=== PATIENT | female | born 1940 | race Caucasian/White ===

== ENCOUNTER 2019-07-18 21:21 | Emergency (ER) | payer MEDICARE, MEDICAID, SELFPAY ==
[2019-07-18 21:33] VITALS: BP 141/71; PULSE 97; RESP 18; TEMP 37.2; O2SAT 93; BMI 23.0
[2019-07-18 23:31] VITALS: BP 139/70; PULSE 93; RESP 14; O2SAT 91
--- NOTE | 2019-07-18 23:34 | W.ED.GENADLT ---
HPI - General Adult General: Chief complaint: General Medical Stated complaint: flu s/s Time Seen by Provider: 07/18/19 23:33 History of Present Illness: HPI narrative: Patient is a 78-year-old female comes into the ED with productive cough, Fever,nasal congestion and body aches. Patient does have a past medical history lung cancer and is in partial remission. She hasn't received any chemotherapy or radiation treatment since 2018. Patient says symptoms started the night of July 07. They have continued to get worse. Patient says she has some shortness of breath. She currently has an inhaler at home she uses for her shortness of breath. Her cough is productive and she says she is coughing up silva phlegm. Denies any coughing up of blood. Denies any chest pain, abdominal pain, nausea, vomiting, diarrhea, constipation, dysuria, hematuria, blood in the stool, headache, numbness or tingling or weakness to extremities. Review of Systems General: Reports: 10 or more systems reviewed and unremarkable except in HPI and below PFSH ED PFSH: Statuses (acute, chronic, etc) shown below reflect problem list status as previously entered and may not be historically accurate Social History Smoking and tobacco status: current every day smoker Physical Exam Narrative: EXAM NARRATIVE: Patient is a 78-year-old female. Alert and oriented when I entered the room. She had several coughing fits during my history and physical exam. Const: COMMON NORMALS: oriented x3 HENMT: COMMON NORMALS: normocephalic HEAD & SCALP: normocephalic NOSE: nasal discharge MOUTH: oral and palatal mucosa normal THROAT: posterior oropharynx normal and uvula midline Neck/C-Spine: COMMON NORMALS: supple GENERAL: Yes normal visual inspection Resp: COMMON NORMALS: normal respiratory effort, no retractions, no use of accessory muscles and clear to auscultation bilaterally AUSCULTATION: clear to auscultation bilaterally, crackles (mild) Laterality: left and posterior and wheezes (mild) expiratory wheezes (posterior mid to upper right lung) Cardio: COMMON NORMALS: regular rate, regular rhythm, S1 normal heart sound, S2 normal heart sound, no gallops, no clicks and no murmurs RATE: regular rate RHYTHM: regular rhythm HEART SOUNDS: S1 normal and S2 normal PERIPHERAL PULSES: radial pulses present (2+) positive bilateral GI: COMMON NORMALS: normal to inspection, nondistended, normoactive bowel sounds, soft to palpation, non-tender and no masses PALPATION: Yes soft : COMMON NORMALS: Yes no CVA tenderness BLADDER/KIDNEY EXAM: Yes no CVA tenderness Back/Pelvis: COMMON NORMALS: no CVA tenderness Extremity: COMMON NORMALS: normal to inspection; negative for no pedal edema Neuro: COMMON NORMALS: oriented x3 Skin: COMMON NORMALS: no rashes or lesions noted GENERAL SKIN EXAM: no rashes or lesions noted Course Vital Signs: Vital signs: Vital Signs Temperature 99 F 07/18/19 21:33 Pulse Rate 98 07/19/19 02:23 Respiratory Rate 14 07/19/19 02:23 Blood Pressure 102/64 07/19/19 02:23 Pulse Oximetry 92 07/19/19 02:23 MDM - General Adult MDM Narrative: Medical decision making narrative: Patient is a 78-year-old female comes to the ED with productive cough and dyspnea since July 07. Patient's past medical history of lung cancer and COPD. CBC was performed And showed an elevated white blood cell count of 11.1. Influenza was negative. Chest x-ray showed possible lung infiltrate on right lower lobe- Pending official radiology report. Patient was put on a prescription of azithromycin and prednisone to treat pneumonia. CURB-65 score- 1 point for >65y/o, no confusion, BUN under 19, Resp rate 18 Normal, BP 141/71. Outpatient therapy is reccomended. Patient was told to follow-up with primary care doctor in 5-7 days for reevaluation. She was also told to continue taking her current medications including her previously prescribed inhalers. Lab Data: Labs: Lab Results 07/18/19 07/19/19 07/19/19 Range/Units 23:36 00:25 00:25 WBC 11.1 H (4.0-10.0) 10^3/ uL RBC 5.15 (4.1-5.3) 10^6/u L Hgb 13.3 (11.5-15.3) g/dL Hct 41.3 (37.0-47.0) % MCV 80.2 L (81-99) fL MCH 25.8 L (28.0-34.0) pg MCHC 32.2 (30.0-36.0) g/dL RDW 14.8 (12.1-15.1) % Plt Count 324 (130-400) 10^3/c mm MPV 9.7 (7.4-10.4) fL Neut % (Auto) 68.6 % Lymph % (Auto) 17.1 % Jackson % (Auto) 12.1 % Eos % (Auto) 1.3 % Baso % (Auto) 0.4 % Neut # (Auto) 7.6 (1.8-7.7) 10^3/u L Lymph # (Auto) 1.9 (0.8-4.8) 10^3/u L Jackson # (Auto) 1.3 H (0.2-0.9) 10^3/u L Eos # (Auto) 0.2 (0.0-0.8) 10^3/u L Baso # (Auto) 0.0 (0.0-0.1) 10^3/u L Nucleated RBC % (a uto) 0 % Nucleated RBCs # 0.0 /100WBC Sodium 132 L (136-145) mmol/L Potassium 4.1 (3.5-5.1) mmol/L Chloride 98 (98-107) mmol/L Carbon Dioxide 25 (22-29) mmol/L Anion Gap 13.1 (5-19) BUN 15 (8-23) mg/dL Creatinine 0.7 (0.5-0.9) mg/dL Glucose 133 H (74-106) mg/dL Calcium 10.2 (8.8-10.2) mg/Dl Total Bilirubin 0.2 (0.15-1.2) mg/dL AST 10 (0-32) U/L ALT < 5 (0-33) U/L Alkaline Phosphata se 84 (35-105) IU/L Total Protein 7.2 (6.6-8.7) g/dL Albumin 4.0 (3.5-5.2) g/dL Globulin 3.2 (1.3-4.6) g/dL Influenza Type A A g Negative (Negative) POC Influenza B Ag Negative (Negative) Discharge Plan Discharge Patient Disposition: Home, Self-Care Clinical Impression: Pneumonia Qualifiers: Pneumonia type: due to unspecified organism Laterality: right Lung location: lower lobe of lung Qualified Code(s): J18.9 - Pneumonia, unspecified organism Condition: Stable Prescriptions: New azithromycin 250 mg tablet See Rx Instructions .ROUTE .COMPLEX Qty: 6 RF: 0 prednisone 20 mg tablet 20 mg PO BID 5 Days Qty: 10 RF: 0 No Action gabapentin 300 mg capsule 300 mg PO BID RF: 0 omeprazole 40 mg capsule,delayed release(DR/EC) 40 mg PO DAILY RF: 0 Aspirin Low Dose 81 mg Tablet,Delayed Release (Dr/Ec) 81 mg PO DAILY RF: 0 duloxetine 60 mg capsule,delayed release(DR/EC) 60 mg PO DAILY RF: 0 trazodone 50 mg tablet 50 mg PO DAILY RF: 0 pravastatin 40 mg tablet 40 mg PO DAILY RF: 0 alprazolam 0.25 mg tablet RF: 0 oxycodone-acetaminophen 7.5-325 mg tablet RF: 0 Discharge Orders: Discharge Order (Routine); Ordered 07/19/19 Ordered By: Tobias Horner Referrals: Delaney Crowell MD [Family Provider] - Discharge Diet: Regular Discharge Activity: Increase activity as tolerated Activity Restrictions/Additional Instructions: Follow-up with your primary care doctor in 5-7 days for reevaluation. Take full course of antibiotic and steroid as prescribed. Take Tylenol or ibuprofen as needed for fever control. Continue taking at home medications and using breathing treatment. Drink plenty of fluids and stay hydrated. If symptoms worsen or shortness of breath increases return to ED for reevaluation. Discharge Date/Time: 07/19/19 02:30 Coding Level of Care Code [employer] for [facility]
--- NOTE | 2019-07-18 23:35 | XRR_ITS ---
PROCEDURE INFORMATION: Exam: XR Chest, 1 View Exam date and time: 07/18/2019 11:58 PM Age: 78 years old Clinical indication: Cough; Prior surgery; Surgery date: 6+ months; Surgery type: Lung biopsies TECHNIQUE: Imaging protocol: XR of the chest Views: 1 view. COMPARISON: CR Chest 1 [place] [id number] 10/24/2018 8:30 PM FINDINGS: Cardiomediastinal silhouette contour is within normal limits. The lungs are hyperinflated, consistent with emphysema. The lungs are clear bilaterally. No visible pneumothorax or pleural effusion. Pulmonary vasculature within normal limits. XR/XR chest 1V portable [id number] IMPRESSION: 1. No radiographic findings of acute cardiopulmonary disease.
[2019-07-19 00:08] LABS: Influenza A by IFA Negative (Negative); Influenza B by IFA Negative (Negative)
--- NOTE | 2019-07-19 00:10 | PC.NURSE ---
HCP IN ROOM
[2019-07-19 00:39] LABS: Basophils % 0.4 %; Eosinophils # 0.2 10^3/uL (0.0-0.8); Eosinophils % 1.3 %; Hematocrit 41.3 % (37.0-47.0); Hemoglobin 13.3 g/dL (11.5-15.3); Lymphocytes # 1.9 10^3/uL (0.8-4.8); Lymphocytes % 17.1 %; Mean Corpuscular HGB Conc 32.2 g/dL (30.0-36.0); Mean Corpuscular Hemoglobin 25.8 pg (28.0-34.0); Mean Corpuscular Volume 80.2 fL (81-99); Mean Platelet Volume 9.7 fL (7.4-10.4); Monocytes # 1.3 10^3/uL (0.2-0.9); Monocytes % 12.1 %; Neutrophils # 7.6 10^3/uL (1.8-7.7); Neutrophils % 68.6 %; Nucleated Red Blood Cells % 0 %; Platelet Count 324 10^3/cmm (130-400); Red Blood Count 5.15 10^6/uL (4.1-5.3); Red Cell Distribution Width 14.8 % (12.1-15.1); White Blood Count 11.1 10^3/uL (4.0-10.0)
[2019-07-19 00:54] LABS: Alanine Aminotransferase < 5 U/L (0-33); Alkaline Phosphatase 84 IU/L (35-105); Anion Gap 13.1 (5-19); Aspartate Amino Transferase 10 U/L (0-32); Blood Urea Nitrogen 15 mg/dL (8-23); Calcium 10.2 mg/Dl (8.8-10.2); Carbon Dioxide 25 mmol/L (22-29); Chloride 98 mmol/L (98-107); Globulin 3.2 g/dL (1.3-4.6); Glucose 133 mg/dL (74-106); Potassium 4.1 mmol/L (3.5-5.1); Sodium 132 mmol/L (136-145); Total Bilirubin 0.2 mg/dL (0.15-1.2); Total Protein 7.2 g/dL (6.6-8.7)
[2019-07-19 01:07] VITALS: BP 122/57; PULSE 90; RESP 18; O2SAT 95
[2019-07-19 02:23] VITALS: BP 102/64; PULSE 98; RESP 14; O2SAT 92
[2019-07-19] MEDS: azithromycin 250 mg Tablet 500 MG PO (02:29)
== END 2019-07-19 02:30 | disposition home or self-care (01) ==
PROVIDERS: Emergency Medicine; Emergency Provider Physician Assistant; Family Provider Internal Medicine
DX: J18.9 Pneumonia, unspecified organism (principal); F17.210 Nicotine dependence, cigarettes, uncomplicated
CPT/HCPCS: 71045; 80053; 85025; 87804; 99281; 99283; Q0144

== ENCOUNTER 2019-08-02 11:15 | Outpatient (CLI) | payer MEDICARE, MEDICAID, SELFPAY ==
--- NOTE | 2019-08-02 11:21 | CT_ITS ---
WS: [id number] CT CHEST TECHNIQUE: Contrast enhanced CT of the chest with coronal and sagittal reformatted images. CLINICAL INFORMATION: LUNG CA COMPARISON: CT chest 7 and PET/CT [id number] DLP: 443.[address] scans at [facility] use at least one of these dose optimization techniques: automat ed exposure control; mA and/or kV adjustment per patient size (includes targeted exams where dose is matched to clinical indication); or iterative reconstruction. FINDINGS: Again seen is the soft tissue neoplasm medial right upper lobe adjacent to the mediastinum measuring approximately 3.3 x 1.0 CM slightly decreased in size since the 2 most recent examinations. Stable ad jacent satellite nodule measuring 5 mm. No evidence of disease progression. Stable prominent precarin al lymph node measuring 8 mm. No progressed lymphadenopathy. Advanced chronic emphysematous changes. No acute pulmonary infiltrates. No focal pneumonia. Vascular calcification including coronary. Pleural thickening in the lung apices. Small noncalcified nodule in the right lower lobe near the diaphragm measuring 4 mm is unchanged. Aortic calcification. Moderate atheromatous disease thoracic aorta. Adrenal glands are normal. Normal renal parenchymal enhancement. A few small nodules in the thyroid. The largest in the right thyroid measuring 7 mm. These appear unchanged. CT/CT chest w con* [id number] IMPRESSION: 1. No change in the right upper lobe paramedian soft tissue neoplasm slightly decreased in size today measuring 3.3 x 1.0 cm. No evidence of disease progress ion. 2. Stable 8 mm precarinal lymph node. No evidence of progressed lymphadenopath y. 3. Stable satellite nodule in the right upper lobe measuring 5 mm. Stable nonc alcified nodule in the right lower lobe laterally near the diaphragm measuring 5 mm. 4. Advanced emphysematous change
[2019-08-02 12:47] LABS: Basophils % 0.6 %; Eosinophils # 0.2 10^3/uL (0.0-0.8); Eosinophils % 2.7 %; Hematocrit 43.4 % (37.0-47.0); Hemoglobin 13.7 g/dL (11.5-15.3); Lymphocytes # 1.3 10^3/uL (0.8-4.8); Lymphocytes % 18.2 %; Mean Corpuscular HGB Conc 31.6 g/dL (30.0-36.0); Mean Corpuscular Hemoglobin 26.6 pg (28.0-34.0); Mean Corpuscular Volume 84.3 fL (81-99); Mean Platelet Volume 9.2 fL (7.4-10.4); Monocytes # 0.7 10^3/uL (0.2-0.9); Neutrophils # 4.8 10^3/uL (1.8-7.7); Neutrophils % 68.2 %; Nucleated Red Blood Cells % 0 %; Platelet Count 477 10^3/cmm (130-400); Red Blood Count 5.15 10^6/uL (4.1-5.3); Red Cell Distribution Width 14.6 % (12.1-15.1); White Blood Count 7.1 10^3/uL (4.0-10.0)
[2019-08-02] MEDS: iohexol 300 mg/mL 100 mL Btl IV (12:54)
[2019-08-02 13:01] LABS: Alanine Aminotransferase 8 U/L (0-33); Albumin Level 3.5 g/dL (3.5-5.2); Alkaline Phosphatase 79 IU/L (35-105); Anion Gap 15.6 (5-19); Aspartate Amino Transferase 12 U/L (0-32); Blood Urea Nitrogen 11 mg/dL (8-23); Calcium 10.4 mg/Dl (8.8-10.2); Carbon Dioxide 27 mmol/L (22-29); Chloride 99 mmol/L (98-107); Globulin 4.2 g/dL (1.3-4.6); Glucose 98 mg/dL (74-106); Potassium 4.6 mmol/L (3.5-5.1); Sodium 137 mmol/L (136-145); Total Bilirubin 0.2 mg/dL (0.15-1.2); Total Protein 7.7 g/dL (6.6-8.7)
== END 2019-08-02 11:16 | disposition home or self-care (01) ==
LOC: RAD 11:18
PROVIDERS: Family Provider Internal Medicine; Visit Provider Internal Medicine Medical Oncology
DX: C34.11 Malignant neoplasm of upper lobe, right bronchus or lung (principal); J43.9 Emphysema, unspecified
CPT/HCPCS: 36415; 71260; 80053; 85025

== ENCOUNTER 2019-08-05 12:03 | Outpatient (CLI) | payer MEDICARE, MEDICAID, SELFPAY ==
--- NOTE | 2019-08-07 14:52 | ONC FU_ITS ---
Dr. Iqbal Patient Follow-Up Note Patient: Giovanna Gottlieb Unit #: [id number]: 1940 Dicatated By: Giacomo Iqbal M.D.Date of Visit:Aug 05, 2019 Onc Med Follow-up/Prog Note Chief Complaint: Lung cancer. 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 By clinical evaluation her disease appeared to be stage IIB (T3, N0, M0). On 07/10/2017 she was admitted to the hospital with an acute COPD exacerbation in association with influenza A infection. Her chest CT at that time showed a mixed soft tissue attenuation mass in the right upper lobe extending anteriorly and superiorly to contact the superior mediastinum and anterior parietal pleura. The mass measured 7.6 x 3.2 x 6.1 cm. The pulmonary vasculature appeared attenuated within the mass and the bronchi appeared occluded. There was mildly prominent mediastinal and right hilar lymphadenopathy. A 7 mm pulmonary nodule was noted in the right anterior upper lobe. Reticular opacities in the right upper lobe were felt to possibly represent a superimposing infiltrate. She was discharged the following day. Further evaluation with PET/CT on 08/02/2017 showed a 4 cm of thickened lower sigmoid colon with SUV 9.4, consistent with malignancy. There were no sites of pathologic adenopathy or other metastatic disease below the diaphragm. The right upper lobe lung mass measured 4 x 3 cm with SUV 19.4, also consistent with malignancy. There was associated subtotal obstruction of the bronchus to the anterior segment right upper lobe with postobstructive pneumonitis. Also noted was a 1.7 cm pulmonary nodule in the base of the anterior segment right upper lobe with SUV 8.0. Increased FDG uptake throughout the bone marrow was felt to be nonspecific. It appeared accentuated in T11 and L2, suspicious for metastatic disease. Colonoscopy on 08/04/2017 showed multiple polyps including a 1 cm sessile polyp and 2 polyps measuring 5 mm in the cecum, a 5 mm sessile polyp in the ascending colon, 1 cm pedunculated polyp in 2 separate pedunculated polyps measuring 7 mm in the sigmoid colon, and a 7 mm pedunculated polyp within the rectum at 10 cm. All of these were removed endoscopically. Also noted was a large pedunculated polyp in the rectosigmoid area at about 20 cm. It measured 3-4 cm. The stalk could not be identified. It apparently was not removed. Biopsy, though, showed tubulovillous adenoma with low-grade dysplasia. It was reported to be completely excised, though I had assumed that to be inaccurate. The rectal polyp and one of the polyps in the cecum also showed tubulovillous adenoma. Another polyp within the cecum was hyperplastic and the polyp in the ascending colon was noted to be adenomatous. A smaller sigmoid polyp also was adenomatous. On 08/20/2017 she underwent bronchoscopy followed by mediastinoscopy with biopsies lymph nodes from station 4R and from the cervical pretracheal region. The bronchoscopy showed an endobronchial exophytic lesion at the orifice to the right upper lobe bronchus. Biopsy showed non-small cell carcinoma consistent with poorly differentiated squamous cell carcinoma. The lymph node biopsies were benign. On 09/08/2017 she began treatment with radiation concurrently with weekly carboplatin/chemotherapy. Her radiation was completed on 10/24/2017 to a total dose of 6300 cGy. She had received her 6th weekly infusion of carboplatin on 10/16/2017. She had significant fatigue during her treatment, but she otherwise tolerated it pretty well. Restaging CT scans of the chest, abdomen, and pelvis on 12/04/2017 showed interval decrease in the right upper lobe mass measuring 5.4 x 1.8 x 2.5 cm compared to 7.6 x 3.4 x 3.57 cm on the pretreatment study. There was also interval decreased mediastinal lymphadenopathy. A right lower lobe lateral costophrenic angle subpleural nodule appeared stable measuring 4-5 mm. On 12/24/2017 show underwent laparoscopic sigmoid colectomy with stapled EEA anastomosis. Grossly there was no evidence of metastatic involvement in the liver or peritoneal carcinomatosis. Pathology showed moderately differentiated adenocarcinoma arising within a villoglandular polyp. Tumor was noted to invade into the muscularis propria, but it was confined to the muscularis. It measured 3.5 x 2.5 x 2.5 cm. There was no involvement in 3 regional lymph nodes. Repeat chest CT on 03/06/2018 showed right upper lobe anterior medial soft tissue mass measuring 4.3 x 1.3 cm with slight further improvement compared to the study in November. Prominent precarinal, right hilar, and subcarinal lymph nodes appeared stable. Noncalcified subcentimeter nodules in the right upper lobe and at the right lung base appeared stable. Also noted were treatment related changes in the right upper lobe and right hilum. She had further evaluation with PET/CT on 03/28/2018. It showed decreased FDG uptake within the right upper lobe mass, consistent with response to therapy. A superior right hilar lymph node also showed decreased FDG uptake, SUV 6.7 compared to 21.8 on the pretreatment study. Small mediastinal nodes in the prevascular, precarinal, and subcarinal territories were FDG positive and unchanged from the prior study. She was referred to Dr. Easton for consideration of surgical resection. He felt that she would not be an appropriate candidate for surgery due to the suspected lymph node involvement and the need for a total pneumonectomy. Her other medical illnesses include hypertension, hyperlipidemia, GERD, fibromyalgia, and COPD. She has additional history of cervical spondylosis with myelopathy. I had previously seen her in July 2015 in regard to leukocytosis, which appeared to be reactive. Her prior surgeries limited to NAE/BSO in 1978 and carpal tunnel release bilaterally in 1992. She has a history of smoking 1 pack of cigarettes daily in excess of 50 years. INTERIM HISTORY: I had seen her for a follow-up visit on 05/27/2018. At that point she was reporting significant pain in her back which had started just after her previous visit in February. X-ray of the thoracic spine was unremarkable. CT of the thoracic spine showed stable previous minor anterior superior compression fractures at T1, T2, T3, and T4. There was mild posterior disc bulging or shallow protrusion at the T8-T9, also without change. There was no evidence of a neoplastic process of the thoracic spine. Chest CT showed stable residual neoplastic mass lesion in the anterior segment right upper lobe and stable right upper and lower lobe pulmonary parenchymal nodules. Nonenlarged mediastinal lymph nodes also appeared stable. Further evaluation with bone scan on 06/15/2018 also showed no evidence of osseous metastatic disease. Given those findings, she continued on observation/expectant management. A restaging PET/CT on 10/03/2018 showed medial right upper lobe consolidation which was FDG positive and felt to be consistent with recurrent disease. Multiple mediastinal lymph nodes were also felt to have significantly progressed, indicative of active metastatic disease. There were additional areas of lymph node progression noted in the left hilum and in the prevascular and inferior right hilar territories. In October she had been seen in the emergency room with suspected TIA. Contrast-enhanced head CT at that time showed no acute intracranial abnormality. Repeat chest CT on 01/15/2019 showed slight increase in the with of the medial right upper lobe neoplasm, measuring 3.5 x 1.7 cm. There was slight increase in soft tissue thickening. An additional 6 mm nodule appeared stable and a right lower lobe 4 mm nodule appeared stable. There was slight increase in the size of lymph nodes in the precarinal area and at the hilum, but they were still subcentimeter. There were no other findings of disease progression. Her restaging PET/CT on 04/17/2019 showed mild activity in the medial right upper lobe consolidation, unchanged from prior studies. There was also no significant change in FDG positive lymph nodes, including a superior right hilar node with SUV 8.1 compared to 9.9 and a precarinal node with SUV 5.7 compared to 6.2. Multiple other nodes also demonstrated no significant change. There were no new areas of abnormal uptake. She continued on observation/expectant management. Her chest CT on 08/02/2019 showed soft tissue neoplasm in the medial right upper lobe adjacent to the mediastinum measuring approximately 3.3 x 1.0 cm, slightly decreased in size compared to the 2 most recent studies. An adjacent satellite lymph node measuring 5 mm also appeared stable, and a prominent precarinal lymph node measuring 8 mm appeared stable. There was no progressed lymphadenopathy or other evidence of disease progression. Advanced emphysematous changes were noted. She is seen for a follow-up visit. She was seen in the emergency room on 17 July and diagnosed with pneumonia. She was treated as an outpatient with antibiotic and prednisone, and she got better. Her energy, though, is just so-so. She is able to do light work. ECOG score is 1. Her appetite is variable, but adequate. She has not had fever. She occasionally has sweating in the evening. She is short of breath with activity. She still has cough productive of silva sputum. About 3 weeks ago she had an episode in which of felt like there was an elephant on her chest, and she also could not breathe. She opted not to seek any medical attention, and the episode resolved. She currently has no GI or complaints. She has some back pain at times, and she says her knees are really weak. She has not been having headache. She has some orthostatic lightheadedness. She has fallen twice within the last 1 to 2 months. She has no focal neurologic symptoms. Medications: Advair Diskus 1 Aerosol Powder, Breath Activated Inhalation b.i.d., ALPRAZolam 1 (0.25 mg) Tablet Oral PRN, Aspirin 1 (81 mg) Tablet Oral daily, Cetirizine HCl 1 Tablet (of 10 mg) Oral ac am, DULoxetine HCl 1 (60 mg) Capsule Delayed Release Particles Oral daily, Gabapentin 1 (300 mg) Capsule Oral b.i.d., Incruse Ellipta 1 (62.5 mcg/inh) Aerosol Powder, Breath Activated Inhalation daily, Ocuvite Adult Formula 1 Capsule Oral daily, Omeprazole 1 Capsule (of 20 mg) Capsule Delayed Release Oral daily, Percocet 1 Tablet (of 7.5-325 mg) Oral PRN, Pravastatin Sodium 1 (40 mg) Tablet Oral daily, Singulair 1 Tablet (of 10 mg) Oral at bedtime, traZODone HCl 1 Tablet (of 50 mg) Oral at bedtime Allergies: Codeine Sulfate, Penicillins, Sulfa Antibiotics, and Vicodin. Review of Systems: Constitutional - She went to ER for pneumonia earlier this month. She was given antibiotics and steroids. She is feeling much better. Her energy is fair. She does light work at home. Her appetite is good and her weight is stable. No fever or chills. She does have hot flashes and sweating. ECOG score is 1, ENMT - No sinus congestion/drainage. No mouth sores. No sore throat or difficulty swallowing, Hematologic/Lymphatic - She bruises easily, Respiratory - She has shortness of breath with activity. She has a cough that produces silva phlegm. No pleuritic pain or hemoptysis, Cardiovascular - She has had chest pressure. No palpitations, Gastrointestinal - No nausea or vomiting. No heartburn or acid reflux. No diarrhea or constipation. No blood in the stool or black stools, Genitourinary (F) - No dysuria or hematuria. No urinary frequency. No urgency or incontinence, Musculoskeletal - She has pain and weakness in both knees. She occasionally has pain in her back, Integumentary - No skin complications, Neurologic - No headache. She occasionally feels dizzy and light-headed. She has had a few falls. No numbness/paresthesias or other focal neurologic symptoms, Psychiatric - No anxiety or depression. No insomnia. Vital Signs: Performed on Aug 05, 2019 12:52 Height - 63.00 in Weight - 132.0 lbs BSA - 1.62 sq.m BMI - 23.38 Temperature - 97.8 F (LOW) Pulse - 88 /min Respiration - 22 /min BP - 124/76 mm(hg) O2 Sat - 94 % (LOW) Pain - 0 Physical Examination: Constitutional - She looks pretty good generally, Eyes - Sclerae nonicteric. Conjunctivae clear, ENMT - No lesions noted in the oral cavity, Hematologic/Lymphatic - No cervical, clavicular, or axillary adenopathy, Respiratory - Lungs sound clear with diminished air movement bilaterally, Cardiovascular - Heart rhythm is regular. There is no murmur, gallop, or rub noted, Abdomen - Soft. Liver and spleen are not enlarged. There is no abdominal mass or ascites noted and there is no inguinal adenopathy, Extremities - No edema. There are purpuric lesions on both arms, Neurologic - No focal neurologic deficits noted. Lab/Imaging: Test performed on Aug 02, 2019 12:12 Glucose 98 mg/dL BUN 11 mg/dL Creatinine 0.7 mg/dL Cr Clearance (Est) 64.63 mL/min Sodium 137 mmol/L Potassium 4.6 mmol/L Chloride 99 mmol/L CO2 27 mmol/L Calcium 10.4 mg/dL Protein, Total 7.7 g/dL Albumin 3.5 g/dL Globulin 4.2 g/dL Bilirubin, Total 0.2 mg/dL Alkaline Phosphatase 79 IU/L AST (SGOT) 12 IU/L ALT (SGPT) 8 IU/L WBC 7.1 10^9/L RBC 5.15 10^12/L HGB 13.7 g/dL HCT 43.4 % MCV 84.3 fl MCH 26.6 pg MCHC 31.6 g/dL RDW 14.6 % Platelet Count 477 10^9/L MPV 9.2 fL Neutrophils (Gran) 4.8 10^9/L Lymphocytes 1.3 10^9/L Monocytes 0.7 10^9/L Eosinophils 0.2 10^9/L Manual Lymphocytes 18.2 % Manual Monocytes 10.0 % Manual Eosinophils 2.7 % Manual Basophils 0.6 % NRBCs 0.0 /100 WBC Impression: 1. 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 By clinical evaluation her disease appeared to be stage IIB (T3, N0, M0), as her PET/CT was suspicious for a separate tumor nodule within the same lobe. 2. She was noted to have a large polyp within the sigmoid colon. This may just be tubulovillous adenoma based on the biopsy, but invasive carcinoma cannot be excluded. Her other medical illnesses include: 3. COPD. 4. Hypertension. 5. Hyperlipidemia. 6. GERD. 7. Fibromyalgia. 8. Nicotine dependence (cigarettes). On 09/08/2017 she began radiation concurrently with weekly carboplatin/Taxol chemotherapy. She completed radiation on 10/24/2017 to a total dose of 6300 cGy. She was given a total of 6 weekly infusions of carboplatin/Taxol. She had significant fatigue during the treatment, but she otherwise tolerated it pretty well. Her restaging CT scans on 12/04/2017 showed a decrease in the right upper lobe lung mass, but there was still significant residual mass in that area. On 12/24/2017 she underwent laparoscopic sigmoid colectomy. Pathology showed moderately differentiated adenocarcinoma, stage I (T2, N0, M0). There was no indication for any further treatment. Her repeat chest CT on 03/06/2018 showed residual right upper lobe mass measuring 4.3 x 1.3 cm, slightly improved from the previous study. Prominent precarinal, right hilar, and subcarinal lymph nodes appeared stable. Repeat PET/CT on 03/28/2018 showed decreased FDG activity within the right upper lobe mass, consistent with response to therapy. A right hilar lymph node also showed decrease FDG uptake. The SUV had decreased to 6.7 compared to 21.8 on the pretreatment study, though it was not included in that report. In retrospect, it does appear that she was incorrectly staged, and she was more likely stage IIIA to begin with (T3, N1, M0). It would not, however, have changed her management. In May 2018 she had presented with increasing pain in the mid back. The symptoms were suspicious for metastatic involvement, but there was no evidence for metastatic involvement in the bone by CT or bone scan. She declined to have an MRI. Her chest CT that time showed no progression of the lung cancer. During subsequent follow-up there was improvement in her back pain, but she continued to have fairly marginal performance status. Her restaging PET/CT on 10/03/2018 showed findings which were felt to be consistent with disease recurrence in the medial right upper lobe as well as progression of malignant mediastinal adenopathy. The findings, though, were rather subtle. As she appeared stable clinically, I opted to have her continue on observation/expectant management. Her repeat chest CT in January 2019 showed findings which were felt to be suspicious for disease progression in the right upper lobe, but her restaging PET/CT on 04/17/2019 showed stable findings with no evidence of disease progression. Since then she is continued to have somewhat marginal performance status. She was given outpatient treatment for pneumonia earlier this month, but she seems to have adequate recovery. Overall, her clinical status at this point appears stable, and her current CT scan shows no evidence of disease progression. Plan: She remains on observation/expectant management or the lung cancer. Her medications will remain the same. She will be scheduled for a follow-up visit with a repeat CT scan in 3 months. Signed By: Giacomo Iqbal M.D. <<Signature on File>>
== END 2019-08-05 12:04 | disposition home or self-care (01) ==
LOC: ONCMED 12:07
PROVIDERS: Family Provider Internal Medicine; PCP Internal Medicine; Visit Provider Internal Medicine Medical Oncology
DX: C34.11 Malignant neoplasm of upper lobe, right bronchus or lung (principal); I10 Essential (primary) hypertension; E78.5 Hyperlipidemia, unspecified; K21.9 Gastro-esophageal reflux disease without esophagitis; M79.7 Fibromyalgia; J44.9 Chronic obstructive pulmonary disease, unspecified; M47.12 Other spondylosis with myelopathy, cervical region; F17.210 Nicotine dependence, cigarettes, uncomplicated; Z79.82 Long term (current) use of aspirin; Z79.51 Long term (current) use of inhaled steroids; Z79.899 Other long term (current) drug therapy; Z85.038 Personal history of other malignant neoplasm of large intestine; Z92.3 Personal history of irradiation; Z90.49 Acquired absence of other specified parts of digestive tract; Z92.21 Personal history of antineoplastic chemotherapy; Z87.01 Personal history of pneumonia (recurrent)
CPT/HCPCS: G0463

== ENCOUNTER 2019-11-09 08:01 | Outpatient (CLI) | payer MEDICARE, MEDICAID, SELFPAY ==
--- NOTE | 2019-11-09 08:06 | CT_ITS ---
WS: [id number] CT CHEST TECHNIQUE: Contrast enhanced CT of the chest with coronal and sagittal reformatted images. CLINICAL INFORMATION: LUNG CA COMPARISON: CT chest August 02, 2019 CT 7 , June 03, 2018. Prior PET CTs including 9 and 10/03/2018 March 28, 2018 DLP: 661.[address] scans at [facility] use at least one of these dose optimization techniques: automat ed exposure control; mA and/or kV adjustment per patient size (includes targeted exams where dose is matched to clinical indication); or iterative reconstruction. FINDINGS: Again seen is the soft tissue neoplasm medial right upper lobe adjacent to the mediastinum measuring approximately 3.4 x 1.0 CM unchanged since the prior examinations. Stable adjacent satellite nodule m easuring 5 mm. Stable prominent precarinal lymph node measuring 8 mm. Small noncalcified nodule in th e right lower lobe near the diaphragm measuring 4 mm is unchanged. New noncalcified nodule in the rig ht upper lobe measuring 5.5 mm. Additionally nodules right middle lobe measuring 4.7, 4.8 mm. Hazy gr oundglass nodule right lower lobe more prominent and better seen seen today measuring 3.8 mm. No axillary lymphadenopathy. No progressed mediastinal or hilar lymphadenopathy. Advanced chronic emphysematous changes. No acute pulmonary infiltrates. No focal pneumonia. Vascular calcification including coronary. Pleural thickening in the lung apices. Aortic calcification. Moderate atheromatous disease thoracic aorta. Adrenal glands are normal. Normal renal parenchymal enhancement. A few small nodules in the thyroid. These appear unchanged. CT/CT chest w con* [id number] IMPRESSION: 1. No change in the right upper lobe paramedian soft tissue neoplasm unchanged in size today measuring 3.4 x 1.0 cm. 2. Stable 8 mm precarinal lymph node. No evidence of progressed lymphadenopathy . 3. Stable satellite nodule in the right upper lobe measuring 5 mm. Stable nonca lcified nodule in the right lower lobe laterally near the diaphragm measuring 5 mm. 4. Several new noncalcified nodules in the right upper lobe posteriorly measuri ng 5.5 mm and right middle lobe measuring 4.7 and 4.8 mm. Additional hazy groundglass nodule in the right lower lung posteriorly measurin g 3.8 mm more prominent that are seen today. Recommend 3 month follow-up for th yehuda nodules. 5. No other significant changes.
[2019-11-09 08:39] LABS: Blood Urea Nitrogen 8 mg/dL (8-23)
[2019-11-09] MEDS: iohexol 300 mg/mL 100 mL Btl IV (08:50)
== END 2019-11-09 08:02 | disposition home or self-care (01) ==
PROVIDERS: Family Provider Internal Medicine; PCP Internal Medicine; Visit Provider Internal Medicine Medical Oncology
DX: C34.11 Malignant neoplasm of upper lobe, right bronchus or lung (principal); R91.1 Solitary pulmonary nodule
CPT/HCPCS: 71260; 82565; 84520; Q9967

== ENCOUNTER 2019-11-18 12:15 | Outpatient (CLI) | payer MEDICARE, MEDICAID, SELFPAY ==
[2019-11-18 16:35] LABS: Basophils # 0.1 10^3/uL (0.0-0.1); Basophils % 0.8 %; Eosinophils # 0.3 10^3/uL (0.0-0.8); Eosinophils % 3.5 %; Hemoglobin 15.3 g/dL (11.5-15.3); Lymphocytes # 2.1 10^3/uL (0.8-4.8); Lymphocytes % 26.4 %; Mean Corpuscular HGB Conc 30.6 g/dL (30.0-36.0); Mean Corpuscular Hemoglobin 26.2 pg (28.0-34.0); Mean Corpuscular Volume 85.8 fL (81-99); Mean Platelet Volume 9.8 fL (7.4-10.4); Monocytes # 0.9 10^3/uL (0.2-0.9); Monocytes % 10.8 %; Neutrophils # 4.6 10^3/uL (1.8-7.7); Neutrophils % 58.2 %; Nucleated Red Blood Cells % 0 %; Platelet Count 335 10^3/cmm (130-400); Red Blood Count 5.83 10^6/uL (4.1-5.3); Red Cell Distribution Width 15.6 % (12.1-15.1)
[2019-11-18 16:41] LABS: Alanine Aminotransferase 9 U/L (0-33); Albumin Level 3.9 g/dL (3.5-5.2); Alkaline Phosphatase 75 IU/L (35-105); Anion Gap 15.8 (5-19); Aspartate Amino Transferase 15 U/L (0-32); Blood Urea Nitrogen 10 mg/dL (8-23); Calcium 10.4 mg/dL (8.5-10.5); Carbon Dioxide 29 mmol/L (22-29); Chloride 102 mmol/L (98-107); Globulin 3.9 g/dL (1.3-4.6); Glucose 77 mg/dL (65-115); Osmolality Calculated 291 mOsm/kg (285-295); Potassium 3.8 mmol/L (3.5-5.1); Sodium 143 mmol/L (136-145); Total Bilirubin 0.2 mg/dL (0.15-1.2); Total Protein 7.8 g/dL (6.6-8.7)
== END 2019-11-18 12:16 | disposition home or self-care (01) ==
LOC: ONCMED 16:27
PROVIDERS: PCP Internal Medicine; Visit Provider Internal Medicine Medical Oncology
DX: C34.11 Malignant neoplasm of upper lobe, right bronchus or lung (principal); C18.7 Malignant neoplasm of sigmoid colon
CPT/HCPCS: 36415; 80053; 85025

== ENCOUNTER 2019-11-19 10:25 | Outpatient (CLI) | payer MEDICARE, MEDICAID, SELFPAY ==
--- NOTE | 2019-11-20 18:14 | ONC FU_ITS ---
Dr. Iqbal Patient Follow-Up Note Patient: Giovanna Gottlieb Unit #: [id number]: [id number] Dicatated By: Giacomo Iqbal M.D.Date of Visit:November 19, 2019 Onc Med Follow-up/Prog Note Chief Complaint: Lung cancer. 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 By clinical evaluation her disease appeared to be stage IIB (T3, N0, M0). On 07/10/2017 she was admitted to the hospital with an acute COPD exacerbation in association with influenza A infection. Her chest CT at that time showed a mixed soft tissue attenuation mass in the right upper lobe extending anteriorly and superiorly to contact the superior mediastinum and anterior parietal pleura. The mass measured 7.6 x 3.2 x 6.1 cm. The pulmonary vasculature appeared attenuated within the mass and the bronchi appeared occluded. There was mildly prominent mediastinal and right hilar lymphadenopathy. A 7 mm pulmonary nodule was noted in the right anterior upper lobe. Reticular opacities in the right upper lobe were felt to possibly represent a superimposing infiltrate. She was discharged the following day. Further evaluation with PET/CT on 08/02/2017 showed a 4 cm of thickened lower sigmoid colon with SUV 9.4, consistent with malignancy. There were no sites of pathologic adenopathy or other metastatic disease below the diaphragm. The right upper lobe lung mass measured 4 x 3 cm with SUV 19.4, also consistent with malignancy. There was associated subtotal obstruction of the bronchus to the anterior segment right upper lobe with postobstructive pneumonitis. Also noted was a 1.7 cm pulmonary nodule in the base of the anterior segment right upper lobe with SUV 8.0. Increased FDG uptake throughout the bone marrow was felt to be nonspecific. It appeared accentuated in T11 and L2, suspicious for metastatic disease. Colonoscopy on 08/04/2017 showed multiple polyps including a 1 cm sessile polyp and 2 polyps measuring 5 mm in the cecum, a 5 mm sessile polyp in the ascending colon, 1 cm pedunculated polyp in 2 separate pedunculated polyps measuring 7 mm in the sigmoid colon, and a 7 mm pedunculated polyp within the rectum at 10 cm. All of these were removed endoscopically. Also noted was a large pedunculated polyp in the rectosigmoid area at about 20 cm. It measured 3-4 cm. The stalk could not be identified. It apparently was not removed. Biopsy, though, showed tubulovillous adenoma with low-grade dysplasia. It was reported to be completely excised, though I had assumed that to be inaccurate. The rectal polyp and one of the polyps in the cecum also showed tubulovillous adenoma. Another polyp within the cecum was hyperplastic and the polyp in the ascending colon was noted to be adenomatous. A smaller sigmoid polyp also was adenomatous. On 08/20/2017 she underwent bronchoscopy followed by mediastinoscopy with biopsies lymph nodes from station 4R and from the cervical pretracheal region. The bronchoscopy showed an endobronchial exophytic lesion at the orifice to the right upper lobe bronchus. Biopsy showed non-small cell carcinoma consistent with poorly differentiated squamous cell carcinoma. The lymph node biopsies were benign. On 09/08/2017 she began treatment with radiation concurrently with weekly carboplatin/chemotherapy. Her radiation was completed on 10/24/2017 to a total dose of 6300 cGy. She had received her 6th weekly infusion of carboplatin on 10/16/2017. She had significant fatigue during her treatment, but she otherwise tolerated it pretty well. Restaging CT scans of the chest, abdomen, and pelvis on 12/04/2017 showed interval decrease in the right upper lobe mass measuring 5.4 x 1.8 x 2.5 cm compared to 7.6 x 3.4 x 3.57 cm on the pretreatment study. There was also interval decreased mediastinal lymphadenopathy. A right lower lobe lateral costophrenic angle subpleural nodule appeared stable measuring 4-5 mm. On 12/24/2017 show underwent laparoscopic sigmoid colectomy with stapled EEA anastomosis. Grossly there was no evidence of metastatic involvement in the liver or peritoneal carcinomatosis. Pathology showed moderately differentiated adenocarcinoma arising within a villoglandular polyp. Tumor was noted to invade into the muscularis propria, but it was confined to the muscularis. It measured 3.5 x 2.5 x 2.5 cm. There was no involvement in 3 regional lymph nodes. Repeat chest CT on 03/06/2018 showed right upper lobe anterior medial soft tissue mass measuring 4.3 x 1.3 cm with slight further improvement compared to the study in November. Prominent precarinal, right hilar, and subcarinal lymph nodes appeared stable. Noncalcified subcentimeter nodules in the right upper lobe and at the right lung base appeared stable. Also noted were treatment related changes in the right upper lobe and right hilum. She had further evaluation with PET/CT on 03/28/2018. It showed decreased FDG uptake within the right upper lobe mass, consistent with response to therapy. A superior right hilar lymph node also showed decreased FDG uptake, SUV 6.7 compared to 21.8 on the pretreatment study. Small mediastinal nodes in the prevascular, precarinal, and subcarinal territories were FDG positive and unchanged from the prior study. She was referred to Dr. Easton for consideration of surgical resection. He felt that she would not be an appropriate candidate for surgery due to the suspected lymph node involvement and the need for a total pneumonectomy. Her other medical illnesses include hypertension, hyperlipidemia, GERD, fibromyalgia, and COPD. She has additional history of cervical spondylosis with myelopathy. I had previously seen her in July 2015 in regard to leukocytosis, which appeared to be reactive. Her prior surgeries limited to NAE/BSO in 1978 and carpal tunnel release bilaterally in 1992. She has a history of smoking 1 pack of cigarettes daily in excess of 50 years. INTERIM HISTORY: I had seen her for a follow-up visit on 05/27/2018. At that point she was reporting significant pain in her back which had started just after her previous visit in February. X-ray of the thoracic spine was unremarkable. CT of the thoracic spine showed stable previous minor anterior superior compression fractures at T1, T2, T3, and T4. There was mild posterior disc bulging or shallow protrusion at the T8-T9, also without change. There was no evidence of a neoplastic process of the thoracic spine. Chest CT showed stable residual neoplastic mass lesion in the anterior segment right upper lobe and stable right upper and lower lobe pulmonary parenchymal nodules. Nonenlarged mediastinal lymph nodes also appeared stable. Further evaluation with bone scan on 06/15/2018 also showed no evidence of osseous metastatic disease. Given those findings, she continued on observation/expectant management. A restaging PET/CT on 10/03/2018 showed medial right upper lobe consolidation which was FDG positive and felt to be consistent with recurrent disease. Multiple mediastinal lymph nodes were also felt to have significantly progressed, indicative of active metastatic disease. There were additional areas of lymph node progression noted in the left hilum and in the prevascular and inferior right hilar territories. In October she had been seen in the emergency room with suspected TIA. Contrast-enhanced head CT at that time showed no acute intracranial abnormality. Repeat chest CT on 01/15/2019 showed slight increase in the with of the medial right upper lobe neoplasm, measuring 3.5 x 1.7 cm. There was slight increase in soft tissue thickening. An additional 6 mm nodule appeared stable and a right lower lobe 4 mm nodule appeared stable. There was slight increase in the size of lymph nodes in the precarinal area and at the hilum, but they were still subcentimeter. There were no other findings of disease progression. Her restaging PET/CT on 04/17/2019 showed mild activity in the medial right upper lobe consolidation, unchanged from prior studies. There was also no significant change in FDG positive lymph nodes, including a superior right hilar node with SUV 8.1 compared to 9.9 and a precarinal node with SUV 5.7 compared to 6.2. Multiple other nodes also demonstrated no significant change. There were no new areas of abnormal uptake. She continued on observation/expectant management. Her chest CT on 08/02/2019 showed soft tissue neoplasm in the medial right upper lobe adjacent to the mediastinum measuring approximately 3.3 x 1.0 cm, slightly decreased in size compared to the 2 most recent studies. An adjacent satellite lymph node measuring 5 mm also appeared stable, and a prominent precarinal lymph node measuring 8 mm appeared stable. There was no progressed lymphadenopathy or other evidence of disease progression. Advanced emphysematous changes were noted. She was seen in the emergency room on 17 July and diagnosed with pneumonia. She was treated as an outpatient with antibiotic and prednisone, and she got better. However, during subsequent follow-up, she continued to have limited activity tolerance and marginal performance status. Her restaging chest CT on 11/09/2019 showed unchanged soft tissue neoplasm in the medial right upper lobe adjacent to the mediastinum measuring approximately 3.4 x 1.0 cm. An adjacent satellite nodule measuring 5 mm also appeared stable, as did a prominent precarinal lymph node measuring 8 mm. A small noncalcified nodule in the right lower lobe near the diaphragm measuring 4 mm appeared unchanged. A noncalcified nodule in the right upper lobe measuring 5.5 mm appeared to be new. Additional new nodules were noted in the right middle lobe measuring 4.7 and 4.8 mm. A hazy groundglass nodule in the right lower lobe appeared slightly more prominent measuring 3.8 mm. She is seen for a scheduled visit. She says her energy is low, but she is still doing some light work. ECOG score is 1. Her appetite is poor, but her weight is stable. She does not have fever or night sweats. Her main complaint is that she is getting dizzy when she first stands up. Her description is most typical with disequilibrium. She says she tends to walk crooked and she loses her balance a lot. She is having a lot of pain in her neck and in her shoulder muscles. She has a sore spot in her right shoulder area. She complains that her nose runs constantly. She has shortness of breath. She has cough productive of silva sputum. She does not complain of chest pain. She has no GI or complaints. She reports having pain in her right knee. She does not complain of headache, and she has no focal neurologic symptoms. Medications: Advair Diskus 1 Aerosol Powder, Breath Activated Inhalation b.i.d., ALPRAZolam 1 (0.25 mg) Tablet Oral PRN, Aspirin 1 (81 mg) Tablet Oral daily, Cetirizine HCl 1 Tablet (of 10 mg) Oral ac am, DULoxetine HCl 1 (60 mg) Capsule Delayed Release Particles Oral daily, Gabapentin 1 (300 mg) Capsule Oral b.i.d., Incruse Ellipta 1 (62.5 mcg/inh) Aerosol Powder, Breath Activated Inhalation daily, Ocuvite Adult Formula 1 Capsule Oral daily, Omeprazole 1 Capsule (of 20 mg) Capsule Delayed Release Oral daily, Percocet 1 Tablet (of 7.5-325 mg) Oral PRN, Pravastatin Sodium 1 (40 mg) Tablet Oral daily, Singulair 1 Tablet (of 10 mg) Oral at bedtime, traZODone HCl 1 Tablet (of 50 mg) Oral at bedtime Allergies: Codeine Sulfate, Penicillins, Sulfa Antibiotics, and Vicodin. Review of Systems: Constitutional - Her energy is low, but she is doing light work at home. Her appetite is poor but her weight is stable. No fever or chills. No hot flashes or sweating. ECOG score is 1, ENMT - Positive for nasal drainage. No mouth sores. No sore throat or difficulty swallowing, Hematologic/Lymphatic - She bruises easily. She reports one significant nosebleed in recent weeks that lasted approximately 15 minutes, Respiratory - She has shortness of breath with activity. She has a productive cough w/ silva phlegm. No pleuritic pain or hemoptysis, Cardiovascular - No chest pain/pressure. No palpitations, Gastrointestinal - No nausea or vomiting. No heartburn or acid reflux. No diarrhea or constipation. No blood in the stool or black stools, Genitourinary (F) - No dysuria or hematuria. No urinary frequency. No urgency or incontinence, Musculoskeletal - She has pain in both knees. She also reports pain in her neck and shoulders, Integumentary - No skin complications, Neurologic - No headache. She occasionally feels dizzy and light-headed upon standing. No numbness/paresthesias or other focal neurologic symptoms, Psychiatric - Positive for significant anxiety, but no depression. No insomnia. Vital Signs: Performed on November 19, 2019 10:33 Height - 63.00 in Weight - 134.8 lbs (HIGH) BSA - 1.64 sq.m BMI - 23.88 Temperature - 97.8 F (LOW) Pulse - 90 /min Respiration - 24 /min BP - 176/82 mm(hg) (HIGH) O2 Sat - 93 % (LOW) Pain - 0 Physical Examination: Constitutional - She appears somewhat frail generally, but not acutely ill, Eyes - Sclerae nonicteric. Conjunctivae clear, ENMT - Mouth is dry. There are no lesions noted in the oral cavity, Hematologic/Lymphatic - No cervical, clavicular, or axillary adenopathy, Respiratory - Lungs sound clear with diminished air movement bilaterally, Cardiovascular - Heart rhythm is regular. There is no murmur, gallop, or rub noted, Abdomen - Soft. Liver and spleen are not enlarged. There is no abdominal mass or ascites noted and there is no inguinal adenopathy, Back/Spine - There is focal tenderness in the upper back on the right side, near the posterior axillary fold. It appears to be associated with an intercostal space, Extremities - No edema. There are purpuric lesions on both arms, Neurologic - No focal neurologic deficits noted. Lab/Imaging: Test performed on November 18, 2019 12:15 Sodium 143 mmol/L Potassium 3.8 mmol/L Chloride 102 mmol/L CO2 29 mmol/L Anion Gap 15.8 BUN 10 mg/dL Creatinine 0.7 mg/dL Cr Clearance (Est) 63.6200 mL/min Glucose 77 mg/dL Calcium 10.4 mg/dL Protein, Total 7.8 g/dL Albumin 3.9 g/dL Globulin 3.9 g/dL Bilirubin, Total 0.2 mg/dL ALT (SGPT) 9 U/L AST (SGOT) 15 U/L Alkaline Phosphatase 75 IU/L WBC 8.0 10 3/uL RBC 5.83 10 6/uL HGB 15.3 g/dL HCT 50.0 % MCV 85.8 fL MCH 26.2 pg MCHC 30.6 g/dL RDW 15.6 % Platelet Count 335 10 3/cmm MPV 9.8 fL Neutrophils 4.6 10 3/uL Lymphocytes 2.1 10 3/uL Monocytes 0.9 10 3/uL Eosinophils 0.3 10 3/uL Basophils 0.1 10 3/uL Neutrophil % 58.2 % Lymphocyte % 26.4 % Monocyte % 10.8 % Eosinophil % 3.5 % Basophils % 0.8 % Impression: 1. 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 By clinical evaluation her disease appeared to be stage IIB (T3, N0, M0), as her PET/CT was suspicious for a separate tumor nodule within the same lobe. 2. She was noted to have a large polyp within the sigmoid colon. This may just be tubulovillous adenoma based on the biopsy, but invasive carcinoma cannot be excluded. Her other medical illnesses include: 3. COPD. 4. Hypertension. 5. Hyperlipidemia. 6. GERD. 7. Fibromyalgia. 8. Nicotine dependence (cigarettes). On 09/08/2017 she began radiation concurrently with weekly carboplatin/Taxol chemotherapy. She completed radiation on 10/24/2017 to a total dose of 6300 cGy. She was given a total of 6 weekly infusions of carboplatin/Taxol. She had significant fatigue during the treatment, but she otherwise tolerated it pretty well. Her restaging CT scans on 12/04/2017 showed a decrease in the right upper lobe lung mass, but there was still significant residual mass in that area. On 12/24/2017 she underwent laparoscopic sigmoid colectomy. Pathology showed moderately differentiated adenocarcinoma, stage I (T2, N0, M0). There was no indication for any further treatment. Her repeat chest CT on 03/06/2018 showed residual right upper lobe mass measuring 4.3 x 1.3 cm, slightly improved from the previous study. Prominent precarinal, right hilar, and subcarinal lymph nodes appeared stable. Repeat PET/CT on 03/28/2018 showed decreased FDG activity within the right upper lobe mass, consistent with response to therapy. A right hilar lymph node also showed decrease FDG uptake. The SUV had decreased to 6.7 compared to 21.8 on the pretreatment study, though it was not included in that report. In retrospect, it does appear that she was incorrectly staged, and she was more likely stage IIIA to begin with (T3, N1, M0). It would not, however, have changed her management. In May 2018 she had presented with increasing pain in the mid back. The symptoms were suspicious for metastatic involvement, but there was no evidence for metastatic involvement in the bone by CT or bone scan. She declined to have an MRI. Her chest CT that time showed no progression of the lung cancer. During subsequent follow-up there was improvement in her back pain, but she continued to have fairly marginal performance status. Her restaging PET/CT on 10/03/2018 showed findings which were felt to be consistent with disease recurrence in the medial right upper lobe as well as progression of malignant mediastinal adenopathy. The findings, though, were rather subtle. As she appeared stable clinically, I opted to have her continue on observation/expectant management. Her repeat chest CT in January 2019 showed findings which were felt to be suspicious for disease progression in the right upper lobe, but her restaging PET/CT on 04/17/2019 showed stable findings with no evidence of disease progression. Since then she is continued to have somewhat marginal performance status. She was given outpatient treatment for pneumonia earlier this month, but she seems to have adequate recovery. During follow-up she has continued to have significant fatigue she has fairly marginal performance status. Recently she has been having more dizziness. Her current chest CT shows a few subcentimeter nodules in the right lung which appear to be new. The findings are otherwise stable. Plan: She remains on observation/expectant management or the lung cancer. I did suggest that she try stopping the cetirizine and the Singulair, and I also suggested that she try tapering off the gabapentin to see if any of that may help with her dizziness. She will be given a prescription for Flonase nasal spray. She will be scheduled for a follow-up visit with a repeat CT scan in 3 months. Signed By: Giacomo Iqbal M.D. <<Signature on File>>
== END 2019-11-19 10:26 | disposition home or self-care (01) ==
PROVIDERS: PCP Internal Medicine; Visit Provider Internal Medicine Medical Oncology
DX: C34.11 Malignant neoplasm of upper lobe, right bronchus or lung (principal); Z85.038 Personal history of other malignant neoplasm of large intestine; J44.9 Chronic obstructive pulmonary disease, unspecified; I10 Essential (primary) hypertension; E78.5 Hyperlipidemia, unspecified; K21.9 Gastro-esophageal reflux disease without esophagitis; M79.7 Fibromyalgia; F17.210 Nicotine dependence, cigarettes, uncomplicated; Z90.49 Acquired absence of other specified parts of digestive tract; Z92.3 Personal history of irradiation; Z79.899 Other long term (current) drug therapy; Z92.21 Personal history of antineoplastic chemotherapy
CPT/HCPCS: 99214

== ENCOUNTER 2020-02-17 12:44 | Outpatient (CLI) | payer MEDICARE, MEDICAID, SELFPAY ==
--- NOTE | 2020-02-17 12:48 | CT_ITS ---
WS: [id number] CT CHEST WITH INTRAVENOUS CONTRAST HISTORY: LUNG CANCER TECHNIQUE: Contiguous 5 mm axial imaging performed on the thorax. Coronal and sagittal reformats are submitted. All CT scans at [facility] use at least one of these dose optimization techniq ues: automated exposure control; mA and/or kV adjustment per patient size (includes targeted exams wh ere dose is matched to clinical indication); or iterative reconstruction. CONTRAST: Omnipaque 300; 95 mL IV. DLP: 482.41 mGy.cm COMPARISON: 11/09/2019 and 08/02/2019 Lungs and central airway: No change in the curvilinear soft tissue opacification in the medial RIGHT upper lobe measuring 3.4 x 0.9 cm. There is an additional stranding and groundglass attenuation in th e RIGHT upper lobe. There is an adjacent satellite lesion measuring 5 mm which is unchanged. RIGHT mi ddle lobe nodule has slightly increased in size since the prior study. Nodule now measures 8 mm as co mpared to 4.8 mm. Stable 4 mm nodule RIGHT lower lobe. There is an additional stable 5 mm nodule at t he RIGHT lung base. No left-sided pulmonary nodules. Pleura: Normal. No pleural effusion. Heart and pericardium: Normal size heart. No pericardial effusion. Mediastinum and josé antonio: Small mediastinal and hilar lymph nodes. The largest is precarinal measuring 8 mm. Vessels: Moderate atherosclerosis aorta with no aneurysm. Pulmonary artery size is normal. Chest wall and lower neck: RIGHT thyroid nodule. Largest measures 7 mm. Upper abdomen: Mid RIGHT renal cyst measures 6 mm. No adrenal mass. Visualized liver is negative. Osseous structures: No osteoblastic or osteolytic bone disease. CT/CT chest w con* [id number] IMPRESSION: 1. No change in the curvilinear soft tissue neoplasm in the medial RIGHT upper lobe. 2. There are several RIGHT subcentimeter pulmonary nodules. One of these nodul es has increased in size in the RIGHT middle lobe from 4.8 mm to 8.0 mm, image 30 of series 3. Recommend [address] follow-up to document stability. 3. No change in the mediastinum or hilar lymph nodes. 4. Chronic emphysema.
[2020-02-17 13:06] LABS: Basophils # 0.1 10^3/uL (0.0-0.1); Basophils % 0.8 %; Eosinophils # 0.2 10^3/uL (0.0-0.8); Eosinophils % 2.6 %; Hematocrit 49.7 % (37.0-47.0); Hemoglobin 15.5 g/dL (11.5-15.3); Lymphocytes # 2.1 10^3/uL (0.8-4.8); Lymphocytes % 28.1 %; Mean Corpuscular HGB Conc 31.2 g/dL (30.0-36.0); Mean Corpuscular Volume 83.4 fL (81-99); Mean Platelet Volume 9.7 fL (7.4-10.4); Monocytes # 0.7 10^3/uL (0.2-0.9); Neutrophils # 4.47 10^3/uL (1.8-7.7); Neutrophils % 59.2 %; Nucleated Red Blood Cells % 0 %; Platelet Count 319 10^3/cmm (130-400); Red Blood Count 5.96 10^6/uL (4.1-5.3); Red Cell Distribution Width 14.3 % (12.1-15.1); White Blood Count 7.6 10^3/uL (4.0-10.0)
[2020-02-17 13:29] LABS: Alanine Aminotransferase 10 U/L (0-33); Albumin Level 3.9 g/dL (3.5-5.2); Alkaline Phosphatase 69 IU/L (35-105); Aspartate Amino Transferase 17 U/L (0-32); Blood Urea Nitrogen 12 mg/dL (8-23); Calcium 9.4 mg/dL (8.5-10.5); Carbon Dioxide 27 mmol/L (22-29); Chloride 103 mmol/L (98-107); Globulin 3.8 g/dL (1.3-4.6); Glucose 92 mg/dL (65-115); Osmolality Calculated 282 mOsm/kg (285-295); Sodium 138 mmol/L (136-145); Total Bilirubin 0.3 mg/dL (0.15-1.2); Total Protein 7.7 g/dL (6.6-8.7)
[2020-02-17] MEDS: iohexol 300 mg/mL 100 mL Btl 95 ML IV (14:30)
== END 2020-02-17 12:45 | disposition home or self-care (01) ==
LOC: CT 12:44
PROVIDERS: PCP Internal Medicine; Visit Provider Internal Medicine Medical Oncology
DX: C34.11 Malignant neoplasm of upper lobe, right bronchus or lung (principal); J43.9 Emphysema, unspecified; R91.8 Other nonspecific abnormal finding of lung field
CPT/HCPCS: 36415; 71260; 80053; 85025

== ENCOUNTER 2020-02-21 12:51 | Outpatient (CLI) | payer MEDICARE, MEDICAID, SELFPAY ==
--- NOTE | 2020-02-22 07:46 | ONC FU_ITS ---
Dr. Iqbal Patient Follow-Up Note Patient: Giovanna Gottlieb Unit #: [id number]: 1940 Dicatated By: Giacomo Iqbal M.D.Date of Visit:Feb 21, 2020 Onc Med Follow-up/Prog Note Chief Complaint: Lung cancer. 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 By clinical evaluation her disease appeared to be stage IIB (T3, N0, M0). On 07/10/2017 she was admitted to the hospital with an acute COPD exacerbation in association with influenza A infection. Her chest CT at that time showed a mixed soft tissue attenuation mass in the right upper lobe extending anteriorly and superiorly to contact the superior mediastinum and anterior parietal pleura. The mass measured 7.6 x 3.2 x 6.1 cm. The pulmonary vasculature appeared attenuated within the mass and the bronchi appeared occluded. There was mildly prominent mediastinal and right hilar lymphadenopathy. A 7 mm pulmonary nodule was noted in the right anterior upper lobe. Reticular opacities in the right upper lobe were felt to possibly represent a superimposing infiltrate. She was discharged the following day. Further evaluation with PET/CT on 08/02/2017 showed a 4 cm of thickened lower sigmoid colon with SUV 9.4, consistent with malignancy. There were no sites of pathologic adenopathy or other metastatic disease below the diaphragm. The right upper lobe lung mass measured 4 x 3 cm with SUV 19.4, also consistent with malignancy. There was associated subtotal obstruction of the bronchus to the anterior segment right upper lobe with postobstructive pneumonitis. Also noted was a 1.7 cm pulmonary nodule in the base of the anterior segment right upper lobe with SUV 8.0. Increased FDG uptake throughout the bone marrow was felt to be nonspecific. It appeared accentuated in T11 and L2, suspicious for metastatic disease. Colonoscopy on 08/04/2017 showed multiple polyps including a 1 cm sessile polyp and 2 polyps measuring 5 mm in the cecum, a 5 mm sessile polyp in the ascending colon, 1 cm pedunculated polyp in 2 separate pedunculated polyps measuring 7 mm in the sigmoid colon, and a 7 mm pedunculated polyp within the rectum at 10 cm. All of these were removed endoscopically. Also noted was a large pedunculated polyp in the rectosigmoid area at about 20 cm. It measured 3-4 cm. The stalk could not be identified. It apparently was not removed. Biopsy, though, showed tubulovillous adenoma with low-grade dysplasia. It was reported to be completely excised, though I had assumed that to be inaccurate. The rectal polyp and one of the polyps in the cecum also showed tubulovillous adenoma. Another polyp within the cecum was hyperplastic and the polyp in the ascending colon was noted to be adenomatous. A smaller sigmoid polyp also was adenomatous. On 08/20/2017 she underwent bronchoscopy followed by mediastinoscopy with biopsies lymph nodes from station 4R and from the cervical pretracheal region. The bronchoscopy showed an endobronchial exophytic lesion at the orifice to the right upper lobe bronchus. Biopsy showed non-small cell carcinoma consistent with poorly differentiated squamous cell carcinoma. The lymph node biopsies were benign. On 09/08/2017 she began treatment with radiation concurrently with weekly carboplatin/chemotherapy. Her radiation was completed on 10/24/2017 to a total dose of 6300 cGy. She had received her 6th weekly infusion of carboplatin on 10/16/2017. She had significant fatigue during her treatment, but she otherwise tolerated it pretty well. Restaging CT scans of the chest, abdomen, and pelvis on 12/04/2017 showed interval decrease in the right upper lobe mass measuring 5.4 x 1.8 x 2.5 cm compared to 7.6 x 3.4 x 3.57 cm on the pretreatment study. There was also interval decreased mediastinal lymphadenopathy. A right lower lobe lateral costophrenic angle subpleural nodule appeared stable measuring 4-5 mm. On 12/24/2017 show underwent laparoscopic sigmoid colectomy with stapled EEA anastomosis. Grossly there was no evidence of metastatic involvement in the liver or peritoneal carcinomatosis. Pathology showed moderately differentiated adenocarcinoma arising within a villoglandular polyp. Tumor was noted to invade into the muscularis propria, but it was confined to the muscularis. It measured 3.5 x 2.5 x 2.5 cm. There was no involvement in 3 regional lymph nodes. Repeat chest CT on 03/06/2018 showed right upper lobe anterior medial soft tissue mass measuring 4.3 x 1.3 cm with slight further improvement compared to the study in November. Prominent precarinal, right hilar, and subcarinal lymph nodes appeared stable. Noncalcified subcentimeter nodules in the right upper lobe and at the right lung base appeared stable. Also noted were treatment related changes in the right upper lobe and right hilum. She had further evaluation with PET/CT on 03/28/2018. It showed decreased FDG uptake within the right upper lobe mass, consistent with response to therapy. A superior right hilar lymph node also showed decreased FDG uptake, SUV 6.7 compared to 21.8 on the pretreatment study. Small mediastinal nodes in the prevascular, precarinal, and subcarinal territories were FDG positive and unchanged from the prior study. She was referred to Dr. Easton for consideration of surgical resection. He felt that she would not be an appropriate candidate for surgery due to the suspected lymph node involvement and the need for a total pneumonectomy. Her other medical illnesses include hypertension, hyperlipidemia, GERD, fibromyalgia, and COPD. She has additional history of cervical spondylosis with myelopathy. I had previously seen her in July 2015 in regard to leukocytosis, which appeared to be reactive. Her prior surgeries limited to NAE/BSO in 1978 and carpal tunnel release bilaterally in 1992. She has a history of smoking 1 pack of cigarettes daily in excess of 50 years. INTERIM HISTORY: I had seen her for a follow-up visit on 05/27/2018. At that point she was reporting significant pain in her back which had started just after her previous visit in February. X-ray of the thoracic spine was unremarkable. CT of the thoracic spine showed stable previous minor anterior superior compression fractures at T1, T2, T3, and T4. There was mild posterior disc bulging or shallow protrusion at the T8-T9, also without change. There was no evidence of a neoplastic process of the thoracic spine. Chest CT showed stable residual neoplastic mass lesion in the anterior segment right upper lobe and stable right upper and lower lobe pulmonary parenchymal nodules. Nonenlarged mediastinal lymph nodes also appeared stable. Further evaluation with bone scan on 06/15/2018 also showed no evidence of osseous metastatic disease. Given those findings, she continued on observation/expectant management. A restaging PET/CT on 10/03/2018 showed medial right upper lobe consolidation which was FDG positive and felt to be consistent with recurrent disease. Multiple mediastinal lymph nodes were also felt to have significantly progressed, indicative of active metastatic disease. There were additional areas of lymph node progression noted in the left hilum and in the prevascular and inferior right hilar territories. In October she had been seen in the emergency room with suspected TIA. Contrast-enhanced head CT at that time showed no acute intracranial abnormality. Repeat chest CT on 01/15/2019 showed slight increase in the with of the medial right upper lobe neoplasm, measuring 3.5 x 1.7 cm. There was slight increase in soft tissue thickening. An additional 6 mm nodule appeared stable and a right lower lobe 4 mm nodule appeared stable. There was slight increase in the size of lymph nodes in the precarinal area and at the hilum, but they were still subcentimeter. There were no other findings of disease progression. Her restaging PET/CT on 04/17/2019 showed mild activity in the medial right upper lobe consolidation, unchanged from prior studies. There was also no significant change in FDG positive lymph nodes, including a superior right hilar node with SUV 8.1 compared to 9.9 and a precarinal node with SUV 5.7 compared to 6.2. Multiple other nodes also demonstrated no significant change. There were no new areas of abnormal uptake. She was seen in the emergency room on 17 July and diagnosed with pneumonia. She improved on outpatient therapy, but during subsequent follow-up, she continued to have limited activity tolerance and marginal performance status. Her chest CT on 08/02/2019 showed soft tissue neoplasm in the medial right upper lobe adjacent to the mediastinum measuring approximately 3.3 x 1.0 cm, slightly decreased in size compared to the 2 most recent studies. An adjacent satellite lymph node measuring 5 mm also appeared stable, and a prominent precarinal lymph node measuring 8 mm appeared stable. There was no progressed lymphadenopathy or other evidence of disease progression. Advanced emphysematous changes were noted. Her restaging chest CT on 11/09/2019 showed unchanged soft tissue neoplasm in the medial right upper lobe adjacent to the mediastinum measuring approximately 3.4 x 1.0 cm. An adjacent satellite nodule measuring 5 mm also appeared stable, as did a prominent precarinal lymph node measuring 8 mm. A small noncalcified nodule in the right lower lobe near the diaphragm measuring 4 mm appeared unchanged. A noncalcified nodule in the right upper lobe measuring 5.5 mm appeared to be new. Additional new nodules were noted in the right middle lobe measuring 4.7 and 4.8 mm. A hazy groundglass nodule in the right lower lobe appeared slightly more prominent measuring 3.8 mm. In the absence of any evidence of significant disease progression, she continued observation/symptomatic management. Repeat chest CT on 02/17/2020 showed no change in the curvilinear soft tissue mass in the medial right upper lobe. There were additional subcentimeter pulmonary nodules in the right lung, one of which had increased from 4.8 to 8.0 mm. The others had remained stable. There was no change in mediastinal or hilar lymph nodes. She is seen for a scheduled visit. She says she has been feeling pretty good, though recently she has been having a lot of pain in her neck/upper back and down her spine. The pain is not as bad when she is lying down. She does complain that her energy is low. She is doing light work at home. ECOG score is 1. She has good appetite. Her weight is stable. She has no fever or night sweats. She does have some sinus drainage and cough. She is sometimes short of breath, especially when she is walking fast. She does not complain of chest pain. She has no GI or complaints. She has no other joint or bone pain. She has no focal neurologic symptoms. Medications: Advair Diskus 1 Aerosol Powder, Breath Activated Inhalation b.i.d., ALPRAZolam 1 (0.25 mg) Tablet Oral PRN, Aspirin 1 (81 mg) Tablet Oral daily, DULoxetine HCl 1 (60 mg) Capsule Delayed Release Particles Oral daily, Incruse Ellipta 1 (62.5 mcg/inh) Aerosol Powder, Breath Activated Inhalation daily, Ocuvite Adult Formula 1 Capsule Oral daily, Omeprazole 1 Capsule (of 20 mg) Capsule Delayed Release Oral daily, Percocet 1 Tablet (of 7.5-325 mg) Oral PRN, Pravastatin Sodium 1 (40 mg) Tablet Oral daily, Singulair 1 Tablet (of 10 mg) Oral at bedtime, traZODone HCl 1 Tablet (of 50 mg) Oral at bedtime Allergies: Codeine Sulfate, Penicillins, Sulfa Antibiotics, and Vicodin. Review of Systems: Constitutional - She has been feeling pretty good generally, though she does complain that her energy is low. She is able to do light work at home. Her appetite is good. Her weight is stable. She has no fever, night sweats, or hot flashes. ECOG score is 1, ENMT - She has allergy related sinus drainage. No mouth sores. No sore throat or difficulty swallowing, Hematologic/Lymphatic - She bruises easily, Respiratory - She has shortness of breath with activity. She has a cough. No pleuritic pain or hemoptysis, Cardiovascular - No angina pain. No palpitations, Gastrointestinal - No nausea or vomiting. Her acid reflux is adequately managed with pantoprazole. No diarrhea or constipation. No blood in the stool or black stools, Genitourinary (F) - No dysuria or hematuria. No urinary frequency. No urgency or incontinence, Musculoskeletal - She has been having a lot of pain in her neck/upper back and down her spine. The pain is not as bad when she is lying down, Integumentary - No skin complications, Neurologic - No headache or dizziness. No numbness or tingling. No other focal neurologic symptoms, Psychiatric - Her anxiety is adequately managed with alprazolam. No depression. No insomnia. Vital Signs: Performed on Feb 21, 2020 13:02 Height - 63.00 in Weight - 135.8 lbs (HIGH) BSA - 1.64 sq.m BMI - 24.06 Temperature - 97.8 F (LOW) Pulse - 90 /min Respiration - 18 /min BP - 145/67 mm(hg) (HIGH) O2 Sat - 92 % (LOW) Pain - 5 Physical Examination: Constitutional - She appears somewhat weak generally, Eyes - Sclerae nonicteric. Conjunctivae clear, ENMT - Mouth is dry. There are no lesions noted in the oral cavity, Hematologic/Lymphatic - No cervical, clavicular, or axillary adenopathy, Respiratory - Lungs sound clear with diminished air movement bilaterally, worse on the right, Cardiovascular - Heart rhythm is regular. There is no murmur, gallop, or rub noted, Abdomen - Soft. Liver and spleen are not enlarged. There is no abdominal mass or ascites noted and there is no inguinal adenopathy, Extremities - No edema. There are scattered purpuric lesions on her arms, Neurologic - No focal neurologic deficits noted. Lab/Imaging: Test performed on Feb 17, 2020 13:00 Sodium 138 mmol/L Potassium 4.0 mmol/L Chloride 103 mmol/L CO2 27 mmol/L Anion Gap 12.0 BUN 12 mg/dL Creatinine 0.6 mg/dL Cr Clearance (Est) 75.7900 mL/min Glucose 92 mg/dL Calcium 9.4 mg/dL Protein, Total 7.7 g/dL Albumin 3.9 g/dL Globulin 3.8 g/dL Bilirubin, Total 0.3 mg/dL ALT (SGPT) 10 U/L AST (SGOT) 17 U/L Alkaline Phosphatase 69 IU/L WBC 7.6 10 3/uL RBC 5.96 10 6/uL HGB 15.5 g/dL HCT 49.7 % MCV 83.4 fL MCH 26.0 pg MCHC 31.2 g/dL RDW 14.3 % Platelet Count 319 10 3/cmm MPV 9.7 fL Neutrophils 4.47 10 3/uL Lymphocytes 2.1 10 3/uL Monocytes 0.7 10 3/uL Eosinophils 0.2 10 3/uL Basophils 0.1 10 3/uL Neutrophil % 59.2 % Lymphocyte % 28.1 % Monocyte % 9.0 % Eosinophil % 2.6 % Basophils % 0.8 % NRBC % 0 % Impression: 1. 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 By clinical evaluation her disease appeared to be stage IIB (T3, N0, M0), as her PET/CT was suspicious for a separate tumor nodule within the same lobe. 2. She was noted to have a large polyp within the sigmoid colon. This may just be tubulovillous adenoma based on the biopsy, but invasive carcinoma cannot be excluded. Her other medical illnesses include: 3. COPD. 4. Hypertension. 5. Hyperlipidemia. 6. GERD. 7. Fibromyalgia. 8. Nicotine dependence (cigarettes). On 09/08/2017 she began radiation concurrently with weekly carboplatin/Taxol chemotherapy. She completed radiation on 10/24/2017 to a total dose of 6300 cGy. She was given a total of 6 weekly infusions of carboplatin/Taxol. She had significant fatigue during the treatment, but she otherwise tolerated it pretty well. Her restaging CT scans on 12/04/2017 showed a decrease in the right upper lobe lung mass, but there was still significant residual mass in that area. On 12/24/2017 she underwent laparoscopic sigmoid colectomy. Pathology showed moderately differentiated adenocarcinoma, stage I (T2, N0, M0). There was no indication for any further treatment. Her repeat chest CT on 03/06/2018 showed residual right upper lobe mass measuring 4.3 x 1.3 cm, slightly improved from the previous study. Prominent precarinal, right hilar, and subcarinal lymph nodes appeared stable. Repeat PET/CT on 03/28/2018 showed decreased FDG activity within the right upper lobe mass, consistent with response to therapy. A right hilar lymph node also showed decrease FDG uptake. The SUV had decreased to 6.7 compared to 21.8 on the pretreatment study, though it was not included in that report. In retrospect, it does appear that she was incorrectly staged, and she was more likely stage IIIA to begin with (T3, N1, M0). It would not, however, have changed her management. In May 2018 she had presented with increasing pain in the mid back. The symptoms were suspicious for metastatic involvement, but there was no evidence for metastatic involvement in the bone by CT or bone scan. She declined to have an MRI. Her chest CT that time showed no progression of the lung cancer. During subsequent follow-up there was improvement in her back pain, but she continued to have fairly marginal performance status. Her restaging PET/CT on 10/03/2018 showed findings which were felt to be consistent with disease recurrence in the medial right upper lobe as well as progression of malignant mediastinal adenopathy. The findings, though, were rather subtle. As she appeared stable clinically, I opted to have her continue on observation/expectant management. Her repeat chest CT in January 2019 showed findings which were felt to be suspicious for disease progression in the right upper lobe, but her restaging PET/CT on 04/17/2019 showed stable findings with no evidence of disease progression. Since then she is continued to have somewhat marginal performance status. She was given outpatient treatment for pneumonia earlier this month, but she seems to have adequate recovery. During follow-up she has continued to have significant fatigue she has had fairly marginal performance status. Her follow-up chest CT scans have showed no change in the medial right upper lobe mass, but over time she has developed new, small pulmonary nodules. Her current CT shows a slight increase in the size of a right middle lobe nodule, but it is still subcentimeter in size, and the other smaller nodules appears stable. Overall, there still has not been evidence for significant progression of the lung cancer. She is having significant pain in her neck/upper back, which is new. Plan: She will continue observation/symptomatic management for the lung cancer, but she does require additional evaluation for her neck/upper back pain. She says she cannot tolerate an MRI, so she will be scheduled for CT scans of the cervical and thoracic spine. She will have further evaluation as indicated. In the absence of any evidence of metastatic disease, I will just see her again in 3 months. In the meantime, she will be given a prescription for oxycodone/APAP to take as needed. Signed By: Giacomo Iqbal M.D. <<Signature on File>>
== END 2020-02-21 12:52 | disposition home or self-care (01) ==
LOC: ONCMED 12:56
PROVIDERS: PCP Internal Medicine; Visit Provider Internal Medicine Medical Oncology
DX: Z08 Encounter for follow-up examination after completed treatment for malignant neoplasm (principal); Z85.118 Personal history of other malignant neoplasm of bronchus and lung; J44.9 Chronic obstructive pulmonary disease, unspecified; I10 Essential (primary) hypertension; E78.5 Hyperlipidemia, unspecified; K21.9 Gastro-esophageal reflux disease without esophagitis; M79.7 Fibromyalgia; F17.210 Nicotine dependence, cigarettes, uncomplicated; Z92.3 Personal history of irradiation; Z79.899 Other long term (current) drug therapy
CPT/HCPCS: 99214

== ENCOUNTER 2020-06-16 08:41 | Outpatient (CLI) | payer MEDICARE, MEDICAID, SELFPAY ==
--- NOTE | 2020-06-16 08:47 | CT_ITS ---
WS: [id number] CT CHEST TECHNIQUE: Contrast enhanced CT of the chest with coronal and sagittal reformatted images. CLINICAL INFORMATION: LUNG CANCER COMPARISON: February 17, 2020 DLP: 408.[address] scans at [facility] use at least one of these dose optimization techniques: automat ed exposure control; mA and/or kV adjustment per patient size (includes targeted exams where dose is matched to clinical indication); or iterative reconstruction. FINDINGS: Moderate chronic emphysematous changes. Stable soft tissue neoplasm medial right upper lobe adjacent to the mediastinum measuring 3.4 x 1.0 cm unchanged. Adjacent satellite nodule measuring 5 mm is also unchanged. Previously described 8 mm nodule in the right middle lobe has decreased in size and today measures 3 mm. Additional subcentimeter noncalcified nodules in the right lower lobe near the diaphr agm and right upper lobe are unchanged. No progressed mediastinal or hilar lymphadenopathy. Stable pr ominent precarinal lymph node measuring 8 mm. Vascular calcification including coronary. Aortic calcification. Moderate atheromatous disease thorac ic aorta. Adrenal glands are normal. A few small thyroid nodules. CT/CT chest w con* [id number] IMPRESSION: 1. No change in the right upper lobe paramedian soft tissue neoplasm. 2. Previously described 8 mm nodule right middle lobe has decreased in size to day only measuring 2 mm. Recommend 6 month follow-up. 3. Stable satellite nodule right upper lobe measuring 5 mm is unchanged. 4. Additional subcentimeter nodules in the right lung are unchanged. 5. No progressed mediastinal or hilar lymphadenopathy. 6. No other significant changes from previous.
[2020-06-16 09:38] LABS: Blood Urea Nitrogen 10 mg/dL (8-23)
[2020-06-16] MEDS: iohexol 300 mg/mL 100 mL Btl IV (09:52)
== END 2020-06-16 08:42 | disposition home or self-care (01) ==
LOC: RAD 08:45
PROVIDERS: PCP Internal Medicine; Visit Provider Internal Medicine Medical Oncology
DX: C18.7 Malignant neoplasm of sigmoid colon (principal); C34.11 Malignant neoplasm of upper lobe, right bronchus or lung; Z92.3 Personal history of irradiation
CPT/HCPCS: 36415; 71260; 82565; 84520

== ENCOUNTER 2020-06-20 07:48 | Outpatient (CLI) | payer MEDICARE, MEDICAID, SELFPAY ==
--- NOTE | 2020-06-21 07:14 | ONC FU_ITS ---
Dr. Iqbal Patient Follow-Up Note Patient: Giovanna Gottlieb Unit #: [id number]: 1940 Dicatated By: Giacomo Iqbal M.D.Date of Visit:Jun 20, 2020 Onc Med Follow-up/Prog Note Chief Complaint: Lung cancer. 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 By clinical evaluation her disease appeared to be stage IIB (T3, N0, M0). On 07/10/2017 she was admitted to the hospital with an acute COPD exacerbation in association with influenza A infection. Her chest CT at that time showed a mixed soft tissue attenuation mass in the right upper lobe extending anteriorly and superiorly to contact the superior mediastinum and anterior parietal pleura. The mass measured 7.6 x 3.2 x 6.1 cm. The pulmonary vasculature appeared attenuated within the mass and the bronchi appeared occluded. There was mildly prominent mediastinal and right hilar lymphadenopathy. A 7 mm pulmonary nodule was noted in the right anterior upper lobe. Reticular opacities in the right upper lobe were felt to possibly represent a superimposing infiltrate. She was discharged the following day. Further evaluation with PET/CT on 08/02/2017 showed a 4 cm of thickened lower sigmoid colon with SUV 9.4, consistent with malignancy. There were no sites of pathologic adenopathy or other metastatic disease below the diaphragm. The right upper lobe lung mass measured 4 x 3 cm with SUV 19.4, also consistent with malignancy. There was associated subtotal obstruction of the bronchus to the anterior segment right upper lobe with postobstructive pneumonitis. Also noted was a 1.7 cm pulmonary nodule in the base of the anterior segment right upper lobe with SUV 8.0. Increased FDG uptake throughout the bone marrow was felt to be nonspecific. It appeared accentuated in T11 and L2, suspicious for metastatic disease. Colonoscopy on 08/04/2017 showed multiple polyps including a 1 cm sessile polyp and 2 polyps measuring 5 mm in the cecum, a 5 mm sessile polyp in the ascending colon, 1 cm pedunculated polyp in 2 separate pedunculated polyps measuring 7 mm in the sigmoid colon, and a 7 mm pedunculated polyp within the rectum at 10 cm. All of these were removed endoscopically. Also noted was a large pedunculated polyp in the rectosigmoid area at about 20 cm. It measured 3-4 cm. The stalk could not be identified. It apparently was not removed. Biopsy, though, showed tubulovillous adenoma with low-grade dysplasia. It was reported to be completely excised, though I had assumed that to be inaccurate. The rectal polyp and one of the polyps in the cecum also showed tubulovillous adenoma. Another polyp within the cecum was hyperplastic and the polyp in the ascending colon was noted to be adenomatous. A smaller sigmoid polyp also was adenomatous. On 08/20/2017 she underwent bronchoscopy followed by mediastinoscopy with biopsies lymph nodes from station 4R and from the cervical pretracheal region. The bronchoscopy showed an endobronchial exophytic lesion at the orifice to the right upper lobe bronchus. Biopsy showed non-small cell carcinoma consistent with poorly differentiated squamous cell carcinoma. The lymph node biopsies were benign. On 09/08/2017 she began treatment with radiation concurrently with weekly carboplatin/chemotherapy. Her radiation was completed on 10/24/2017 to a total dose of 6300 cGy. She had received her 6th weekly infusion of carboplatin on 10/16/2017. She had significant fatigue during her treatment, but she otherwise tolerated it pretty well. Restaging CT scans of the chest, abdomen, and pelvis on 12/04/2017 showed interval decrease in the right upper lobe mass measuring 5.4 x 1.8 x 2.5 cm compared to 7.6 x 3.4 x 3.57 cm on the pretreatment study. There was also interval decreased mediastinal lymphadenopathy. A right lower lobe lateral costophrenic angle subpleural nodule appeared stable measuring 4-5 mm. On 12/24/2017 show underwent laparoscopic sigmoid colectomy with stapled EEA anastomosis. Grossly there was no evidence of metastatic involvement in the liver or peritoneal carcinomatosis. Pathology showed moderately differentiated adenocarcinoma arising within a villoglandular polyp. Tumor was noted to invade into the muscularis propria, but it was confined to the muscularis. It measured 3.5 x 2.5 x 2.5 cm. There was no involvement in 3 regional lymph nodes. Repeat chest CT on 03/06/2018 showed right upper lobe anterior medial soft tissue mass measuring 4.3 x 1.3 cm with slight further improvement compared to the study in November. Prominent precarinal, right hilar, and subcarinal lymph nodes appeared stable. Noncalcified subcentimeter nodules in the right upper lobe and at the right lung base appeared stable. Also noted were treatment related changes in the right upper lobe and right hilum. She had further evaluation with PET/CT on 03/28/2018. It showed decreased FDG uptake within the right upper lobe mass, consistent with response to therapy. A superior right hilar lymph node also showed decreased FDG uptake, SUV 6.7 compared to 21.8 on the pretreatment study. Small mediastinal nodes in the prevascular, precarinal, and subcarinal territories were FDG positive and unchanged from the prior study. She was referred to Dr. Easton for consideration of surgical resection. He felt that she would not be an appropriate candidate for surgery due to the suspected lymph node involvement and the need for a total pneumonectomy. Her other medical illnesses include hypertension, hyperlipidemia, GERD, fibromyalgia, and COPD. She has additional history of cervical spondylosis with myelopathy. I had previously seen her in July 2015 in regard to leukocytosis, which appeared to be reactive. Her prior surgeries limited to NAE/BSO in 1978 and carpal tunnel release bilaterally in 1992. She has a history of smoking 1 pack of cigarettes daily in excess of 50 years. INTERIM HISTORY: I had seen her for a follow-up visit on 05/27/2018. At that point she was reporting significant pain in her back which had started just after her previous visit in February. X-ray of the thoracic spine was unremarkable. CT of the thoracic spine showed stable previous minor anterior superior compression fractures at T1, T2, T3, and T4. There was mild posterior disc bulging or shallow protrusion at the T8-T9, also without change. There was no evidence of a neoplastic process of the thoracic spine. Chest CT showed stable residual neoplastic mass lesion in the anterior segment right upper lobe and stable right upper and lower lobe pulmonary parenchymal nodules. Nonenlarged mediastinal lymph nodes also appeared stable. Further evaluation with bone scan on 06/15/2018 also showed no evidence of osseous metastatic disease. Given those findings, she continued on observation/expectant management. A restaging PET/CT on 10/03/2018 showed medial right upper lobe consolidation which was FDG positive and felt to be consistent with recurrent disease. Multiple mediastinal lymph nodes were also felt to have significantly progressed, indicative of active metastatic disease. There were additional areas of lymph node progression noted in the left hilum and in the prevascular and inferior right hilar territories. In October she had been seen in the emergency room with suspected TIA. Contrast-enhanced head CT at that time showed no acute intracranial abnormality. Repeat chest CT on 01/15/2019 showed slight increase in the with of the medial right upper lobe neoplasm, measuring 3.5 x 1.7 cm. There was slight increase in soft tissue thickening. An additional 6 mm nodule appeared stable and a right lower lobe 4 mm nodule appeared stable. There was slight increase in the size of lymph nodes in the precarinal area and at the hilum, but they were still subcentimeter. There were no other findings of disease progression. Her restaging PET/CT on 04/17/2019 showed mild activity in the medial right upper lobe consolidation, unchanged from prior studies. There was also no significant change in FDG positive lymph nodes, including a superior right hilar node with SUV 8.1 compared to 9.9 and a precarinal node with SUV 5.7 compared to 6.2. Multiple other nodes also demonstrated no significant change. There were no new areas of abnormal uptake. She was seen in the emergency room in July 2019 and diagnosed with pneumonia. She improved on outpatient therapy, but during subsequent follow-up, she continued to have limited activity tolerance and marginal performance status. Her chest CT on 08/02/2019 showed soft tissue neoplasm in the medial right upper lobe adjacent to the mediastinum measuring approximately 3.3 x 1.0 cm, slightly decreased in size compared to the 2 most recent studies. An adjacent satellite lymph node measuring 5 mm also appeared stable, and a prominent precarinal lymph node measuring 8 mm appeared stable. There was no progressed lymphadenopathy or other evidence of disease progression. Advanced emphysematous changes were noted. Her restaging chest CT on 11/09/2019 showed unchanged soft tissue neoplasm in the medial right upper lobe adjacent to the mediastinum measuring approximately 3.4 x 1.0 cm. An adjacent satellite nodule measuring 5 mm also appeared stable, as did a prominent precarinal lymph node measuring 8 mm. A small noncalcified nodule in the right lower lobe near the diaphragm measuring 4 mm appeared unchanged. A noncalcified nodule in the right upper lobe measuring 5.5 mm appeared to be new. Additional new nodules were noted in the right middle lobe measuring 4.7 and 4.8 mm. A hazy groundglass nodule in the right lower lobe appeared slightly more prominent measuring 3.8 mm. In the absence of any evidence of significant disease progression, she continued observation/symptomatic management. Repeat chest CT on 02/17/2020 showed no change in the curvilinear soft tissue mass in the medial right upper lobe. There were additional subcentimeter pulmonary nodules in the right lung, one of which had increased from 4.8 to 8.0 mm. The others had remained stable. There was no change in mediastinal or hilar lymph nodes. Her chest CT on 06/16/2020 showed stable soft tissue neoplasm in the medial right upper lobe adjacent to the mediastinum measuring 3.4 x 1.0 cm. An adjacent satellite nodule measuring 5 mm also appeared unchanged. A previously described 8 mm nodule in the right middle lobe had decreased in size to 3 mm. Additional subcentimeter noncalcified nodules in the right lower lobe and right upper lobe also appeared unchanged. There was no progressed mediastinal or hilar lymphadenopathy. She is seen for a scheduled visit. She has been feeling pretty good, though she says her energy is still not too good. She is able to do light work at home. Her ECOG score is 1. Her appetite is not real good, but her weight is stable. She does not have fever or night sweats. 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 Her breathing is not too good, but no worse. She does not complain of cough and she has not been having chest pain. She has no GI or complaints. She has joint pain, mainly in the shoulders. At times she has pain high up in the back, and she does have ongoing problems with her fibromyalgia. She does not complain of headache. She has some numbness in the fingers of her right hand, and she sometimes drops objects. She previously had carpal tunnel release bilaterally. Medications: Advair Diskus 1 Aerosol Powder, Breath Activated Inhalation b.i.d., ALPRAZolam 1 (0.25 mg) Tablet Oral PRN, Aspirin 1 (81 mg) Tablet Oral daily, DULoxetine HCl 1 (60 mg) Capsule Delayed Release Particles Oral daily, Incruse Ellipta 1 (62.5 mcg/inh) Aerosol Powder, Breath Activated Inhalation daily, Lyrica 1 Capsule (of 75 mg) Oral daily, Ocuvite Adult Formula 1 Capsule Oral daily, Omeprazole 1 Capsule (of 20 mg) Capsule Delayed Release Oral daily, Percocet 1 Tablet (of 7.5-325 mg) Oral PRN, Pravastatin Sodium 1 (40 mg) Tablet Oral daily, Singulair 1 Tablet (of 10 mg) Oral at bedtime, traZODone HCl 1 Tablet (of 50 mg) Oral at bedtime Allergies: Codeine Sulfate, Penicillins, Sulfa Antibiotics, and Vicodin. Review of Systems: Constitutional - Her energy is not too good. She is able to do light work. Appetite is also not real good, but her weight is stable. No fever, night sweats, or hot flashes. ECOG score is 1, Eyes - She has macular degeneration. 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 No mouth sores. No sore throat or difficulty swallowing, Hematologic/Lymphatic - No abnormal bruising or bleeding, Respiratory - Her breathing is not too good. No cough. No pleuritic pain or hemoptysis, Cardiovascular - No angina pain. No palpitations, Gastrointestinal - No nausea or vomiting. No heartburn or acid reflux. No diarrhea or constipation. No blood in the stool or black stools, Genitourinary (F) - No dysuria or hematuria. No urinary frequency. No urgency or incontinence, Musculoskeletal - She sometimes has joint pain, particularly in the shoulders. At times she has pain high up in the back, Integumentary - No skin rash, Neurologic - No headache. She has dizziness if she gets up real fast. She has numbness in the fingers of her right hand and she occasionally drops objects. She previously had carpal tunnel release bilaterally, Psychiatric - She has anxiety. No depression. No insomnia. Vital Signs: Performed on Jun 20, 2020 08:31 Height - 63.00 in Weight - 139.6 lbs (HIGH) BSA - 1.66 sq.m BMI - 24.73 Temperature - 97.6 F (LOW) Pulse - 85 /min Respiration - 20 /min BP - 165/69 mm(hg) (HIGH) O2 Sat - 92 % (LOW) Pain - 0 Physical Examination: Constitutional - She appears somewhat frail generally, Eyes - Sclerae nonicteric. Conjunctivae clear, ENMT - No lesions noted in the oral cavity, Hematologic/Lymphatic - No cervical, clavicular, or axillary adenopathy, Respiratory - Lungs sound clear with diminished air movement bilaterally, Cardiovascular - Heart rhythm is regular. There is no murmur, gallop, or rub noted, Abdomen - Soft. Liver and spleen are not enlarged. There is no abdominal mass or ascites noted and there is no inguinal adenopathy, Extremities - No edema, Neurologic - No focal neurologic deficits noted. Impression: 1. 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 By clinical evaluation her disease appeared to be stage IIB (T3, N0, M0), as her PET/CT was suspicious for a separate tumor nodule within the same lobe. 2. She was noted to have a large polyp within the sigmoid colon. This may just be tubulovillous adenoma based on the biopsy, but invasive carcinoma cannot be excluded. Her other medical illnesses include: 3. COPD. 4. Hypertension. 5. Hyperlipidemia. 6. GERD. 7. Fibromyalgia. 8. Nicotine dependence (cigarettes). On 09/08/2017 she began radiation concurrently with weekly carboplatin/Taxol chemotherapy. She completed radiation on 10/24/2017 to a total dose of 6300 cGy. She was given a total of 6 weekly infusions of carboplatin/Taxol. She had significant fatigue during the treatment, but she otherwise tolerated it pretty well. Her restaging CT scans on 12/04/2017 showed a decrease in the right upper lobe lung mass, but there was still significant residual mass in that area. On 12/24/2017 she underwent laparoscopic sigmoid colectomy. Pathology showed moderately differentiated adenocarcinoma, stage I (T2, N0, M0). There was no indication for any further treatment. Her repeat chest CT on 03/06/2018 showed residual right upper lobe mass measuring 4.3 x 1.3 cm, slightly improved from the previous study. Prominent precarinal, right hilar, and subcarinal lymph nodes appeared stable. Repeat PET/CT on 03/28/2018 showed decreased FDG activity within the right upper lobe mass, consistent with response to therapy. A right hilar lymph node also showed decrease FDG uptake. The SUV had decreased to 6.7 compared to 21.8 on the pretreatment study, though it was not included in that report. In retrospect, it does appear that she was incorrectly staged, and she was more likely stage IIIA to begin with (T3, N1, M0). It would not, however, have changed her management. In May 2018 she had presented with increasing pain in the mid back. The symptoms were suspicious for metastatic involvement, but there was no evidence for metastatic involvement in the bone by CT or bone scan. She declined to have an MRI. Her chest CT that time showed no progression of the lung cancer. During subsequent follow-up there was improvement in her back pain, but she continued to have fairly marginal performance status. Her restaging PET/CT on 10/03/2018 showed findings which were felt to be consistent with disease recurrence in the medial right upper lobe as well as progression of malignant mediastinal adenopathy. The findings, though, were rather subtle. As she appeared stable clinically, I opted to have her continue on observation/expectant management. Her repeat chest CT in January 2019 showed findings which were felt to be suspicious for disease progression in the right upper lobe, but her restaging PET/CT on 04/17/2019 showed stable findings with no evidence of disease progression. Since then she is continued to have somewhat marginal performance status. She was given outpatient treatment for pneumonia earlier this month, but she seems to have adequate recovery. During follow-up she has continued to have significant fatigue and musculoskeletal pain, and she has had fairly marginal performance status. Her follow-up CT scans have shown residual mass in the medial right upper lobe with scattered small noncalcified pulmonary nodules in the right lung, but thus far there has been no evidence of progression of the lung cancer. Plan: She continues observation/symptomatic management for the lung cancer. She is requesting to have the medication for her fibromyalgia change back to gabapentin from Lyrica. It will be initiated at 300 mg twice daily. Her medications otherwise remain the same. I will see her again in 3 months. Signed By: Giacomo Iqbal M.D. <<Signature on File>>
== END 2020-06-20 07:49 | disposition home or self-care (01) ==
LOC: ONCMED 07:51
PROVIDERS: PCP Internal Medicine; Visit Provider Internal Medicine Medical Oncology
DX: C34.11 Malignant neoplasm of upper lobe, right bronchus or lung (principal); M79.7 Fibromyalgia; J44.9 Chronic obstructive pulmonary disease, unspecified; I10 Essential (primary) hypertension; E78.5 Hyperlipidemia, unspecified; K21.9 Gastro-esophageal reflux disease without esophagitis; F17.210 Nicotine dependence, cigarettes, uncomplicated; Z79.899 Other long term (current) drug therapy; Z92.3 Personal history of irradiation; Z90.49 Acquired absence of other specified parts of digestive tract; Z85.038 Personal history of other malignant neoplasm of large intestine
CPT/HCPCS: 99214

== ENCOUNTER 2020-09-03 12:53 | Emergency (ER) | payer MEDICARE, MEDICAID, SELFPAY ==
[2020-09-03 13:10] VITALS: BP 123/82; PULSE 84; RESP 16; TEMP 36.9; O2SAT 90; BMI 23.7
--- NOTE | 2020-09-03 13:27 | ED_ITS ---
HPI - Back Pain/Injury General: Chief Complaint: Back Pain/Injury Stated Complaint: LOW BACK PAIN Time Seen by Provider: 09/03/20 13:20 Source: patient Mode of arrival: ambulatory Limitations: no limitations History of Present Illness: HPI Narrative: Patient comes in today with complaints of low back pain radiating into her right buttocks and upper leg. Patient reports pain started on Friday. Patient has been using some pain medication at time with minimal relief. Patient has a history of lung cancer and colon cancer. Patient denies any loss of bowel or bladder control. Review of Systems General: Reports: 10 or more systems reviewed and unremarkable except in HPI and below Musc: Reports: back pain PFSH ED PFSH: Social History Smoking and tobacco status: current every day smoker Physical Exam Const: COMMON NORMALS: no acute distress and patient oriented x3 GENERAL APPEARANCE: cooperative HENMT: COMMON NORMALS: normocephalic and Normal external nose present HEAD & SCALP: normal to inspection and normocephalic NOSE: Normal external nose present MOUTH: Normal oral and palatal mucosa present THROAT: posterior oropharynx normal Eye: GENERAL EYE: appearance normal, both eyes and all related structures Neck/C-Spine: COMMON NORMALS: full ROM Lymph: LYMPHATIC: no lymphadenopathy noted Chest: COMMONS NORMALS: normal inspection of the chest Resp: COMMON NORMALS: normal respiratory effort EFFORT & INSPECTION: Yes able to speak in complete sentences Cardio: COMMON NORMALS: regular rate and regular rhythm RATE: regular rate RHYTHM: regular rhythm GI: COMMON NORMALS: non-tender : COMMON NORMALS: Yes no CVA tenderness BLADDER/KIDNEY EXAM: Yes no CVA tenderness Back/Pelvis: COMMON NORMALS: no CVA tenderness LUMBAR SPINE/LOWER BACK: Yes lumbar spinal tenderness Lumbar spinal tenderness location: L4 and L5 and Yes paraspinal muscle tenderness Lumbar paraspinal muscle tenderness: right Extremity: COMMON NORMALS: normal to inspection Neuro: COMMON NORMALS: patient oriented x3 and moves all extremities Psych: COMMON NORMALS: mental status grossly normal and cooperative Skin: COMMON NORMALS: no rashes or lesions noted GENERAL SKIN EXAM: no rashes or lesions noted Course Vital Signs: Vital signs: Vital Signs Temperature 98.5 F 09/03/20 13:10 Pulse Rate 84 09/03/20 13:10 Respiratory Rate 16 09/03/20 13:10 Blood Pressure 123/82 09/03/20 13:10 Pulse Oximetry 90 09/03/20 13:10 MDM - Back Pain/Injury MDM Narrative: Medical decision making narrative: Patient presents today with concerns for low back pain with radiation into the right buttocks and right thigh area. Patient does have some positive leg lift test with elevation of the right lower leg. Vertebral tenderness is noted in the right paraspinous lumbar muscles, and some midline back tenderness in the lumbar region. Differential diagnosis is concerning for intervertebral disc disease, facet arthropathy, lumbar strain, metastasis secondary to colon/lung cancer. CT scan was performed to rule out metastasis and acute fracture. CT did not indicate any fracture or significant spinal stenosis. Reviewed exam with patient with recommendations for treatment and follow-up. Patient was given ketorolac and orphenadrine with some improvement in pain. Patient reported understanding of care plan and need for follow-up. Discharge Plan Discharge Patient Disposition: Home Clinical Impression: Sciatica Qualifiers: Laterality: right Qualified Code(s): M54.31 - Sciatica, right side Condition: Stable Prescriptions: New naproxen 375 mg tablet,delayed release (DR/EC) 375 mg PO BID Qty: 20 RF: 0 No Action gabapentin 300 mg capsule 300 mg PO BID RF: 0 omeprazole 40 mg capsule,delayed release(DR/EC) 40 mg PO DAILY RF: 0 Aspirin Low Dose 81 mg Tablet,Delayed Release (Dr/Ec) 81 mg PO DAILY RF: 0 duloxetine 60 mg capsule,delayed release(DR/EC) 60 mg PO DAILY RF: 0 trazodone 50 mg tablet 50 mg PO DAILY RF: 0 pravastatin 40 mg tablet 40 mg PO DAILY RF: 0 alprazolam 0.25 mg tablet RF: 0 oxycodone-acetaminophen 7.5-325 mg tablet RF: 0 azithromycin 250 mg tablet See Rx Instructions .ROUTE .COMPLEX Qty: 6 RF: 0 Discharge Orders: Discharge ED (Routine); Ordered 09/03/20 Ordered By: Luis Fernando Rollins Referrals: Delaney Crowell MD [Primary Care Provider] - Discharge Diet: Usual diet Discharge Activity: Increase activity as tolerated Patient Instructions: Back Pain (ED), Opioid Safety Activity Restrictions/Additional Instructions: Activity as tolerated. Gentle stretching and range of motion exercises. Drink plenty of water with medication. Follow-up with primary care for further treatment. Return to the emergency department for new concerns. Coding Level of Care Code ED [employer] for [place] F[facility] Exam Comprehensive
--- NOTE | 2020-09-03 13:42 | CTR_ITS ---
PROCEDURE INFORMATION: Exam: CT Lumbar Spine Without Contrast Exam date and time: 09/03/2020 2:06 PM Age: 80 years old Clinical indication: Low back pain; Additional info: Lumbar pain with sciatica right side, history of cancer TECHNIQUE: Imaging protocol: Computed tomography images of the lumbar spine without contrast. Radiation optimization: All CT scans at this facility use at least one of these dose optimization techniques: automated exposure control; mA and/or kV adjustment per patient size (includes targeted exams where dose is matched to clinical indication); or iterative reconstruction. COMPARISON: [place] [id number] 09/16/2017 2:29 PM RADIATION DOSE METRICS: Total DLP (mGy-cm): 1748.48 FINDINGS: Vertebrae: No acute fracture. Normal alignment. L1-L2: There is shallow disc bulging. There is mild facet hypertrophy. The spinal canal and neural foramina are patent. L2-L3: There is shallow disc bulging. There is mild facet hypertrophy. The spinal canal and neural foramina are patent. L3-L4: There is shallow disc bulging. There is moderate facet hypertrophy. The spinal canal and neural foramina are patent. L4-L5: There is diffuse disc bulging. There is moderate facet hypertrophy. The spinal canal and neural foramina are patent. L5-S1: There is diffuse disc bulging. There is moderate facet hypertrophy. The spinal canal and neural foramina are patent. Soft tissues: Unremarkable. CT/CT lumbar spine wo con* [id number] IMPRESSION: Degenerative disc disease and spondylosis. No canal or neural foraminal compromise. Radiation Dose CTDIVOL = (mGy): DLP = 1748.48 (mGy-cm)
[2020-09-03] MEDS: orphenadrine 30 mg/mL Inj 2 mL 60 MG IM (13:46)
[2020-09-03] MEDS: ketorolac 30 mg/mL INJ IM (13:46)
[2020-09-03 15:27] VITALS: BP 121/78; PULSE 75; RESP 16; TEMP 36.7; O2SAT 92
== END 2020-09-03 15:28 | disposition home or self-care (01) ==
PROVIDERS: Emergency Provider Nurse Practitioner Family; PCP Internal Medicine
DX: M54.31 Sciatica, right side (principal); Z79.82 Long term (current) use of aspirin; F17.210 Nicotine dependence, cigarettes, uncomplicated
CPT/HCPCS: 72131; 96372; 99283; J1885; J2360

== ENCOUNTER 2020-09-18 10:45 | Outpatient (CLI) | payer MEDICARE, MEDICAID, SELFPAY ==
[2020-09-18 11:18] LABS: Basophils # 0.1 10^3/uL (0.0-0.1); Basophils % 0.7 %; Eosinophils # 0.2 10^3/uL (0.0-0.8); Eosinophils % 2.8 %; Hematocrit 50.4 % (37.0-47.0); Hemoglobin 16.2 g/dL (11.5-15.3); Lymphocytes # 2.2 10^3/uL (0.8-4.8); Lymphocytes % 32.6 %; Mean Corpuscular HGB Conc 32.1 g/dL (30.0-36.0); Mean Platelet Volume 9.3 fL (7.4-10.4); Monocytes # 0.8 10^3/uL (0.2-0.9); Monocytes % 11.1 %; Neutrophils % 52.5 %; Nucleated Red Blood Cells % 0 %; Platelet Count 254 10^3/cmm (130-400); Red Blood Count 5.79 10^6/uL (4.1-5.3); Red Cell Distribution Width 14.9 % (12.1-15.1); White Blood Count 6.9 10^3/uL (4.0-10.0)
[2020-09-18 11:38] LABS: Alanine Aminotransferase 11 U/L (0-33); Albumin Level 3.8 g/dL (3.5-5.2); Alkaline Phosphatase 68 IU/L (35-105); Aspartate Amino Transferase 20 U/L (0-32); Blood Urea Nitrogen 12 mg/dL (8-23); Calcium 9.8 mg/dL (8.5-10.5); Carbon Dioxide 29 mmol/L (22-29); Chloride 103 mmol/L (98-107); Globulin 3.6 g/dL (1.3-4.6); Glucose 79 mg/dL (65-115); Osmolality Calculated 291 mOsm/kg (285-295); Sodium 141 mmol/L (136-145); Total Bilirubin 0.3 mg/dL (0.15-1.2); Total Protein 7.4 g/dL (6.6-8.7)
[2020-09-18 11:42] LABS: Anion Gap 13.1 (5-19); Potassium 4.1 mmol/L (3.5-5.1)
[2020-09-18 12:58] LABS: Magnesium 1.8 mg/dL (1.7-2.3)
--- NOTE | 2020-09-21 08:06 | ONC FU_ITS ---
Dr. Iqbal Patient Follow-Up Note Patient: Giovanna Gottlieb Unit #: [id number]: 1940 Dicatated By: Giacomo Iqbal M.D.Date of Visit:Sep 18, 2020 Onc Med Follow-up/Prog Note Chief Complaint: Lung cancer. 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 By clinical evaluation her disease appeared to be stage IIB (T3, N0, M0). On 07/10/2017 she was admitted to the hospital with an acute COPD exacerbation in association with influenza A infection. Her chest CT at that time showed a mixed soft tissue attenuation mass in the right upper lobe extending anteriorly and superiorly to contact the superior mediastinum and anterior parietal pleura. The mass measured 7.6 x 3.2 x 6.1 cm. The pulmonary vasculature appeared attenuated within the mass and the bronchi appeared occluded. There was mildly prominent mediastinal and right hilar lymphadenopathy. A 7 mm pulmonary nodule was noted in the right anterior upper lobe. Reticular opacities in the right upper lobe were felt to possibly represent a superimposing infiltrate. She was discharged the following day. Further evaluation with PET/CT on 08/02/2017 showed a 4 cm of thickened lower sigmoid colon with SUV 9.4, consistent with malignancy. There were no sites of pathologic adenopathy or other metastatic disease below the diaphragm. The right upper lobe lung mass measured 4 x 3 cm with SUV 19.4, also consistent with malignancy. There was associated subtotal obstruction of the bronchus to the anterior segment right upper lobe with postobstructive pneumonitis. Also noted was a 1.7 cm pulmonary nodule in the base of the anterior segment right upper lobe with SUV 8.0. Increased FDG uptake throughout the bone marrow was felt to be nonspecific. It appeared accentuated in T11 and L2, suspicious for metastatic disease. Colonoscopy on 08/04/2017 showed multiple polyps including a 1 cm sessile polyp and 2 polyps measuring 5 mm in the cecum, a 5 mm sessile polyp in the ascending colon, 1 cm pedunculated polyp in 2 separate pedunculated polyps measuring 7 mm in the sigmoid colon, and a 7 mm pedunculated polyp within the rectum at 10 cm. All of these were removed endoscopically. Also noted was a large pedunculated polyp in the rectosigmoid area at about 20 cm. It measured 3-4 cm. The stalk could not be identified. It apparently was not removed. Biopsy, though, showed tubulovillous adenoma with low-grade dysplasia. It was reported to be completely excised, though I had assumed that to be inaccurate. The rectal polyp and one of the polyps in the cecum also showed tubulovillous adenoma. Another polyp within the cecum was hyperplastic and the polyp in the ascending colon was noted to be adenomatous. A smaller sigmoid polyp also was adenomatous. On 08/20/2017 she underwent bronchoscopy followed by mediastinoscopy with biopsies lymph nodes from station 4R and from the cervical pretracheal region. The bronchoscopy showed an endobronchial exophytic lesion at the orifice to the right upper lobe bronchus. Biopsy showed non-small cell carcinoma consistent with poorly differentiated squamous cell carcinoma. The lymph node biopsies were benign. On 09/08/2017 she began treatment with radiation concurrently with weekly carboplatin/chemotherapy. Her radiation was completed on 10/24/2017 to a total dose of 6300 cGy. She had received her 6th weekly infusion of carboplatin on 10/16/2017. She had significant fatigue during her treatment, but she otherwise tolerated it pretty well. Restaging CT scans of the chest, abdomen, and pelvis on 12/04/2017 showed interval decrease in the right upper lobe mass measuring 5.4 x 1.8 x 2.5 cm compared to 7.6 x 3.4 x 3.57 cm on the pretreatment study. There was also interval decreased mediastinal lymphadenopathy. A right lower lobe lateral costophrenic angle subpleural nodule appeared stable measuring 4-5 mm. On 12/24/2017 show underwent laparoscopic sigmoid colectomy with stapled EEA anastomosis. Grossly there was no evidence of metastatic involvement in the liver or peritoneal carcinomatosis. Pathology showed moderately differentiated adenocarcinoma arising within a villoglandular polyp. Tumor was noted to invade into the muscularis propria, but it was confined to the muscularis. It measured 3.5 x 2.5 x 2.5 cm. There was no involvement in 3 regional lymph nodes. Repeat chest CT on 03/06/2018 showed right upper lobe anterior medial soft tissue mass measuring 4.3 x 1.3 cm with slight further improvement compared to the study in November. Prominent precarinal, right hilar, and subcarinal lymph nodes appeared stable. Noncalcified subcentimeter nodules in the right upper lobe and at the right lung base appeared stable. Also noted were treatment related changes in the right upper lobe and right hilum. She had further evaluation with PET/CT on 03/28/2018. It showed decreased FDG uptake within the right upper lobe mass, consistent with response to therapy. A superior right hilar lymph node also showed decreased FDG uptake, SUV 6.7 compared to 21.8 on the pretreatment study. Small mediastinal nodes in the prevascular, precarinal, and subcarinal territories were FDG positive and unchanged from the prior study. She was referred to Dr. Easton for consideration of surgical resection. He felt that she would not be an appropriate candidate for surgery due to the suspected lymph node involvement and the need for a total pneumonectomy. I had seen her for a follow-up visit on 05/27/2018. At that point she was reporting significant pain in her back which had started just after her previous visit in February. X-ray of the thoracic spine was unremarkable. CT of the thoracic spine showed stable previous minor anterior superior compression fractures at T1, T2, T3, and T4. There was mild posterior disc bulging or shallow protrusion at the T8-T9, also without change. There was no evidence of a neoplastic process of the thoracic spine. Chest CT showed stable residual neoplastic mass lesion in the anterior segment right upper lobe and stable right upper and lower lobe pulmonary parenchymal nodules. Nonenlarged mediastinal lymph nodes also appeared stable. Further evaluation with bone scan on 06/15/2018 also showed no evidence of osseous metastatic disease. Given those findings, she continued on observation/expectant management. A restaging PET/CT on 10/03/2018 showed medial right upper lobe consolidation which was FDG positive and felt to be consistent with recurrent disease. Multiple mediastinal lymph nodes were also felt to have significantly progressed, indicative of active metastatic disease. There were additional areas of lymph node progression noted in the left hilum and in the prevascular and inferior right hilar territories. In October she had been seen in the emergency room with suspected TIA. Contrast-enhanced head CT at that time showed no acute intracranial abnormality. Repeat chest CT on 01/15/2019 showed slight increase in the with of the medial right upper lobe neoplasm, measuring 3.5 x 1.7 cm. There was slight increase in soft tissue thickening. An additional 6 mm nodule appeared stable and a right lower lobe 4 mm nodule appeared stable. There was slight increase in the size of lymph nodes in the precarinal area and at the hilum, but they were still subcentimeter. There were no other findings of disease progression. Her restaging PET/CT on 04/17/2019 showed mild activity in the medial right upper lobe consolidation, unchanged from prior studies. There was also no significant change in FDG positive lymph nodes, including a superior right hilar node with SUV 8.1 compared to 9.9 and a precarinal node with SUV 5.7 compared to 6.2. Multiple other nodes also demonstrated no significant change. There were no new areas of abnormal uptake. She was seen in the emergency room in July 2019 and diagnosed with pneumonia. She improved on outpatient therapy, but during subsequent follow-up, she continued to have limited activity tolerance and marginal performance status. Her chest CT on 08/02/2019 showed soft tissue neoplasm in the medial right upper lobe adjacent to the mediastinum measuring approximately 3.3 x 1.0 cm, slightly decreased in size compared to the 2 most recent studies. An adjacent satellite lymph node measuring 5 mm also appeared stable, and a prominent precarinal lymph node measuring 8 mm appeared stable. There was no progressed lymphadenopathy or other evidence of disease progression. Advanced emphysematous changes were noted. Her restaging chest CT on 11/09/2019 showed unchanged soft tissue neoplasm in the medial right upper lobe adjacent to the mediastinum measuring approximately 3.4 x 1.0 cm. An adjacent satellite nodule measuring 5 mm also appeared stable, as did a prominent precarinal lymph node measuring 8 mm. A small noncalcified nodule in the right lower lobe near the diaphragm measuring 4 mm appeared unchanged. A noncalcified nodule in the right upper lobe measuring 5.5 mm appeared to be new. Additional new nodules were noted in the right middle lobe measuring 4.7 and 4.8 mm. A hazy groundglass nodule in the right lower lobe appeared slightly more prominent measuring 3.8 mm. In the absence of any evidence of significant disease progression, she continued observation/symptomatic management. Her other medical illnesses include hypertension, hyperlipidemia, GERD, fibromyalgia, and COPD. She has additional history of cervical spondylosis with myelopathy. I had previously seen her in July 2015 in regard to leukocytosis, which appeared to be reactive. Her prior surgeries limited to NAE/BSO in 1978 and carpal tunnel release bilaterally in 1992. She has a history of smoking 1 pack of cigarettes daily in excess of 50 years. INTERIM HISTORY: Her chest CT on 06/16/2020 showed stable soft tissue neoplasm in the medial right upper lobe adjacent to the mediastinum measuring 3.4 x 1.0 cm. An adjacent satellite nodule measuring 5 mm also appeared unchanged. A previously described 8 mm nodule in the right middle lobe had decreased in size to 3 mm. Additional subcentimeter noncalcified nodules in the right lower lobe and right upper lobe also appeared unchanged. There was no progressed mediastinal or hilar lymphadenopathy. She continued observation/symptomatic management. She was seen in the emergency room on 09/03/2020 with back pain. Her lumbar spine CT showed shallow disc bulging at multiple levels, but with patent spinal canal and neural foramina and with no evidence of metastatic disease. She is seen for a scheduled visit. She still complains of lower back pain. She wakes up every morning with it, but it does tend to ease up after she has been moving around. The pain does radiate to the right buttock area and to the right leg and groin. She is not having any other bone pain at this time. She complains that her energy is not good, but she is doing light work at home. ECOG score is 1. Appetite also was not very good. Her weight is down 6 pounds. She does not have fever or night sweats. She is short of breath with activity. She has some cough, which is chronic. She does not complain of chest pain. She has no GI or complaints. She does not complain of headache or dizziness, and she has no focal neurologic symptoms. Medications: Advair Diskus 1 Aerosol Powder, Breath Activated Inhalation b.i.d., ALPRAZolam 1 (0.25 mg) Tablet Oral PRN, Aspirin 1 (81 mg) Tablet Oral daily, DULoxetine HCl 1 (60 mg) Capsule Delayed Release Particles Oral daily, Incruse Ellipta 1 (62.5 mcg/inh) Aerosol Powder, Breath Activated Inhalation daily, Lyrica 1 Capsule (of 75 mg) Oral daily, Ocuvite Adult Formula 1 Capsule Oral daily, Omeprazole 1 Capsule (of 20 mg) Capsule Delayed Release Oral daily, Percocet 1 Tablet (of 7.5-325 mg) Oral PRN, Pravastatin Sodium 1 (40 mg) Tablet Oral daily, Singulair 1 Tablet (of 10 mg) Oral at bedtime, traZODone HCl 1 Tablet (of 50 mg) Oral at bedtime Allergies: Codeine Sulfate, Penicillins, Sulfa Antibiotics, and Vicodin. Vital Signs: Performed on Sep 18, 2020 12:22 Height - 63.00 in Weight - 133.4 lbs (LOW) BSA - 1.63 sq.m BMI - 23.63 Temperature - 97.1 F (LOW) Pulse - 87 /min Respiration - 20 /min BP - 138/77 mm(hg) O2 Sat - 93 % (LOW) Pain - 2 Fatigue - 10 Physical Examination: Constitutional - She appears somewhat weak generally, Eyes - Sclerae nonicteric. Conjunctivae clear, ENMT - No lesions noted in the oral cavity, Hematologic/Lymphatic - No cervical, clavicular, or axillary adenopathy, Respiratory - Lungs sound clear with diminished air movement bilaterally, Cardiovascular - Heart rhythm is regular. There is no murmur, gallop, or rub noted, Abdomen - Soft. Liver and spleen are not enlarged. There is no abdominal mass or ascites noted and there is no inguinal adenopathy, Back/Spine - There is tenderness in the lower lumbar/sacral area to the right of the midline, Extremities - No edema. There are scattered purpuric lesions, Neurologic - No focal neurologic deficits noted. Lab/Imaging: Test performed on Sep 18, 2020 10:54 Magnesium 1.8 mg/dL Sodium 141 mmol/L Potassium 4.1 mmol/L Chloride 103 mmol/L CO2 29 mmol/L Anion Gap 13.1 BUN 12 mg/dL Creatinine 0.6 mg/dL Cr Clearance (Est) 73.82 mL/min Glucose 79 mg/dL Osmolality - Calculated 291 mOsm/kg Calcium 9.8 mg/dL Protein, Total 7.4 g/dL Albumin 3.8 g/dL Globulin 3.6 g/dL Bilirubin, Total 0.3 mg/dL ALT (SGPT) 11 U/L AST (SGOT) 20 U/L Alkaline Phosphatase 68 IU/L WBC 6.9 10 3/uL RBC 5.79 10 6/uL HGB 16.2 g/dL HCT 50.4 % MCV 87.0 fL MCH 28.0 pg MCHC 32.1 g/dL RDW 14.9 % Platelet Count 254 10 3/cmm MPV 9.3 fL Neutrophils 3.60 10 3/uL Lymphocytes 2.2 10 3/uL Monocytes 0.8 10 3/uL Eosinophils 0.2 10 3/uL Basophils 0.1 10 3/uL Neutrophil % 52.5 % Lymphocyte % 32.6 % Monocyte % 11.1 % Eosinophil % 2.8 % Basophils % 0.7 % NRBC % 0 % Problem List: 1. Poorly differentiated squamous cell carcinoma involving the upper lobe of the right lung. By clinical evaluation her disease appeared to be stage IIB (T3, N0, M0), as her PET/CT was suspicious for a separate tumor nodule within the same lobe. 2. Moderately differentiated adenocarcinoma, stage I (T2, N0, M0). She underwent laparoscopic sigmoid colectomy on 12/24/2017. 3. COPD. 4. Hypertension. 5. Hyperlipidemia. 6. GERD. 7. Fibromyalgia. 8. Nicotine dependence (cigarettes). Problems Addressed with this Encounter and Plan: 1. 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 By clinical evaluation her disease appeared to be stage IIB (T3, N0, M0), as her PET/CT was suspicious for a separate tumor nodule within the same lobe. On 09/08/2017 she began radiation concurrently with weekly carboplatin/Taxol chemotherapy. She completed radiation on 10/24/2017 to a total dose of 6300 cGy. She was given a total of 6 weekly infusions of carboplatin/Taxol. She had significant fatigue during the treatment, but she otherwise tolerated it pretty well. Her restaging CT scans on 12/04/2017 showed a decrease in the right upper lobe lung mass, but there was still significant residual mass in that area. During follow-up she has had chronic fatigue with persistent fibrotic changes in the right hilar area on her follow-up CT scans. In May 2018 she had presented with increasing pain in the mid back. The symptoms were suspicious for metastatic involvement, but there was no evidence for metastatic involvement in the bone by CT or bone scan. She declined to have an MRI. Her chest CT that time showed no progression of the lung cancer. During subsequent follow-up there was improvement in her back pain, but she continued to have fairly marginal performance status. Her restaging PET/CT on 10/03/2018 showed findings which were felt to be consistent with disease recurrence in the medial right upper lobe as well as progression of malignant mediastinal adenopathy. Her repeat chest CT in January 2019 also showed findings which were felt to be suspicious for disease progression in the right upper lobe, but her restaging PET/CT on 04/17/2019 showed stable findings with no evidence of disease progression. She continues to have fatigue and limited activity tolerance, and she has some chronic shortness of breath and cough. As of June 2020 there is still no obvious progression of the lung cancer by follow-up CT scan. As such, she continues observation/symptomatic management. I will see her again in 3 months. 2. Moderately differentiated adenocarcinoma, stage I (T2, N0, M0). She underwent laparoscopic sigmoid colectomy on 12/24/2017. She has been followed expectantly with no evidence of recurrence. 3. She has had ongoing complaints of back pain. Recent CT of the lumbar spine showed degenerative changes with mild disc bulging at multiple levels, but with no associated spinal stenosis or foraminal stenosis and no evidence of metastatic disease. However, in the setting of known lung cancer, she will be scheduled for repeat bone scan along with x-rays of the lumbosacral spine, pelvis, and right hip. She will have further evaluation as indicated. Signed By: Giacomo Iqbal M.D. <<Signature on File>>
== END 2020-09-18 10:46 | disposition home or self-care (01) ==
LOC: ONCMED 10:48
PROVIDERS: PCP Internal Medicine; Visit Provider Internal Medicine Medical Oncology
DX: C34.11 Malignant neoplasm of upper lobe, right bronchus or lung (principal); R25.2 Cramp and spasm; Z85.038 Personal history of other malignant neoplasm of large intestine; M51.26 Other intervertebral disc displacement, lumbar region; M54.9 Dorsalgia, unspecified; Z90.49 Acquired absence of other specified parts of digestive tract; Z92.3 Personal history of irradiation; Z92.21 Personal history of antineoplastic chemotherapy
CPT/HCPCS: 80053; 83735; 85025; 99214

== ENCOUNTER 2020-10-24 08:41 | Outpatient (CLI) | payer MEDICARE, MEDICAID, SELFPAY ==
--- NOTE | 2020-10-24 08:51 | XR_ITS ---
WS: [id number] LUMBAR SPINE: 3 VIEWS TECHNIQUE: AP, lateral and L5-S1 spot. HISTORY: LUNG CANCER/LOWER BACK R HIP PAIN COMPARISON: CT 09/03/2020 Mild LEFT curvature lumbar spine. Osteopenia and mild scoliosis. No fractures or destructive bone pro cess. Pedicles are all identified. Mild narrowing of the disc spaces. Mild bilateral SI joint narrowing. Moderate atherosclerosis aorta. XR/XR lumbar spine 2-3V* [id number] IMPRESSION: Mild degenerative LEFT scoliosis. No fractures or bone destruction.
--- NOTE | 2020-10-24 08:51 | NM_ITS ---
WS: [id number] NUCLEAR MEDICINE WHOLE BODY BONE SCAN HISTORY: LUNG CANCER/PAIN IN LOW BACK R LEG COMPARISON: 06/15/2018 TECHNIQUE: The patient was injected with 25.2 mCi of Technetium 99m HDP and serial whole-body scintig montez have been performed with anterior and posterior images. Normal uptake in the osseous and soft tissue structures. Similar to the prior bone scan. No focal are a of increased activity to suggest metastatic bone disease. Visualized kidneys are normal. ME/NM bone scan whole body* [id number] IMPRESSION: No evidence for osseous metastatic disease by bone scan imaging.
--- NOTE | 2020-10-24 08:51 | XR_ITS ---
WS: [id number] PELVIS AND RIGHT HIP HISTORY: LUNG CANCER/LOWER BACK HIP PAIN COMPARISON: None available. Right hip: No acute fracture or dislocation. No lytic or destructive sclerotic lesions. Mild SI joint narrowing. Bones the pelvis are symmetric with mild bilateral hip joint narrowing. There are numerous surgical s utures over the midline of the pelvis. XR/XR hip RT 2-3V wo/w pel* [id number] IMPRESSION: 1. No hip fracture. 2. No evidence for osteoblastic or osteolytic metastatic disease.
== END 2020-10-24 08:42 | disposition home or self-care (01) ==
LOC: RAD 08:46
PROVIDERS: PCP Internal Medicine; Visit Provider Internal Medicine Medical Oncology
DX: C34.11 Malignant neoplasm of upper lobe, right bronchus or lung (principal); M54.5 Low back pain; M25.551 Pain in right hip; I70.0 Atherosclerosis of aorta; M41.86 Other forms of scoliosis, lumbar region
CPT/HCPCS: 72100; 73502; 78306; A9561

== ENCOUNTER 2020-12-18 09:19 | Outpatient (CLI) | payer MEDICARE, MEDICAID, SELFPAY ==
[2020-12-18 09:53] LABS: Basophils % 0.5 %; Eosinophils # 0.2 10^3/uL (0.0-0.8); Eosinophils % 2.9 %; Hematocrit 52.6 % (37.0-47.0); Hemoglobin 17.3 g/dL (11.5-15.3); Lymphocytes # 2.1 10^3/uL (0.8-4.8); Lymphocytes % 27.1 %; Mean Corpuscular HGB Conc 32.9 g/dL (30.0-36.0); Mean Corpuscular Hemoglobin 29.6 pg (28.0-34.0); Mean Corpuscular Volume 89.9 fL (81-99); Mean Platelet Volume 9.6 fL (7.4-10.4); Monocytes # 0.7 10^3/uL (0.2-0.9); Monocytes % 8.6 %; Neutrophils # 4.59 10^3/uL (1.8-7.7); Neutrophils % 60.5 %; Nucleated Red Blood Cells % 0 %; Platelet Count 271 10^3/cmm (130-400); Red Blood Count 5.85 10^6/uL (4.1-5.3); Red Cell Distribution Width 13.5 % (12.1-15.1); White Blood Count 7.6 10^3/uL (4.0-10.0)
[2020-12-18 10:16] LABS: Alanine Aminotransferase 8 U/L (0-33); Albumin Level 4.1 g/dL (3.5-5.2); Alkaline Phosphatase 86 IU/L (35-105); Anion Gap 13.6 (5-19); Aspartate Amino Transferase 16 U/L (0-32); Blood Urea Nitrogen 11 mg/dL (8-23); Calcium 9.3 mg/dL (8.5-10.5); Carbon Dioxide 27 mmol/L (22-29); Chloride 103 mmol/L (98-107); Globulin 3.8 g/dL (1.3-4.6); Glucose 128 mg/dL (65-115); Osmolality Calculated 291 mOsm/kg (285-295); Potassium 3.6 mmol/L (3.5-5.1); Sodium 140 mmol/L (136-145); Total Bilirubin 0.4 mg/dL (0.15-1.2); Total Protein 7.9 g/dL (6.6-8.7)
--- NOTE | 2020-12-18 10:25 | CT_ITS ---
WS: [id number] CT CHEST, ABDOMEN AND PELVIS WITH CONTRAST HISTORY: LUNG CANCER TECHNIQUE: Contiguous 5 mm axial imaging performed through the chest, abdomen and pelvis with IV cont rast, oral contrast has been provided. Coronal and sagittal reformats chest. Coronal and sagittal ref ormats through the abdomen and pelvis. All CT scans at [facility] use at least one of the se dose optimization techniques: automated exposure control; mA and/or kV adjustment per patient size (includes targeted exams where dose is matched to clinical indication); or iterative reconstruction. CONTRAST: Omnipaque 300; 95 mL IV. DLP: 1046.81 mGy.cm COMPARISON: 06/16/2020, 02/17/2020, 02/02/[address]: Moderate changes of chronic emphysema. Curvilinear soft tissue adjacent to the mediastinum in the RIGHT upper lobe measures 4.0 x 1.0 cm and is slightly decreased in size since 06/16/2020. Ther e is a small satellite lesion measuring 5 mm which is stable in the RIGHT upper lobe. There are a few scattered mild subcentimeter postinflammatory opacifications which are unchanged. There are no new o r enlarging pulmonary nodules or masses. No enlarging lymph nodes. The largest lymph node is precarin al and 11 mm. There are small bilateral hilar lymph nodes which are stable. No pericardial or pleural effusions. Heart size is normal. Small hiatal hernia. Subcentimeter RIGHT thyroid nodule is unchange d. Mild atherosclerosis aorta. Pulmonary artery size is slightly enlarged. Abdomen CT: There are a few scattered hypodensities within the liver which are too small to character ize and may be small cysts. Hepatic steatosis along the falciform ligament. Negative gallbladder and spleen. Normal appearance of the pancreas and RIGHT adrenal gland. Mild nodularity and thickening of the LEFT adrenal gland LEFT adrenal nodule measures 11 mm and is stable. Bilateral renal low-attenuat ion masses. Similar to small to characterize. Some of the renal nodules or cysts. There is cortical t hinning and scarring at multiple areas in the LEFT kidney. No renal obstruction. Moderate atheroscler osis aorta. No GI tract obstruction. No inflammatory changes. Postsurgical anastomosis near the rectosigmoid is s table with no recurrent mass. No adenopathy or ascites. Ventral abdominal wall hernia. Pelvic CT: Well-distended urinary bladder. No osteoblastic or osteolytic bone disease. CT/CT chest abd pel w con* IMPRESSION: 1. Stable posttreatment appearance of the medial RIGHT upper lobe curvilinear soft tissue from prior neoplasm. No increase in size or new pulmonary nodules o r adenopathy. 2. Chronic emphysema. 3. Stable LEFT adrenal nodule which is probably an adenoma. 4. No ascites or metastatic disease within the abdomen or pelvis.
[2020-12-18] MEDS: iohexol 300 mg/mL 100 mL Btl IV (11:53)
[2020-12-18] MEDS: iohexol 300 mg/mL 50 mL Btl PO (11:57)
== END 2020-12-18 09:20 | disposition home or self-care (01) ==
PROVIDERS: PCP Internal Medicine; Visit Provider Internal Medicine Medical Oncology
DX: Z08 Encounter for follow-up examination after completed treatment for malignant neoplasm (principal); F17.210 Nicotine dependence, cigarettes, uncomplicated; Z85.118 Personal history of other malignant neoplasm of bronchus and lung; Z85.038 Personal history of other malignant neoplasm of large intestine; J44.9 Chronic obstructive pulmonary disease, unspecified; K21.9 Gastro-esophageal reflux disease without esophagitis; E78.5 Hyperlipidemia, unspecified; M79.7 Fibromyalgia; I10 Essential (primary) hypertension; Z90.49 Acquired absence of other specified parts of digestive tract; Z92.3 Personal history of irradiation; Z92.21 Personal history of antineoplastic chemotherapy
CPT/HCPCS: 36415; 71260; 74177; 80053; 85025; Q9967

== ENCOUNTER 2020-12-20 06:24 | Outpatient (CLI) | payer MEDICARE, MEDICAID, SELFPAY ==
--- NOTE | 2020-12-22 17:18 | ONC FU_ITS ---
Dr. Iqbal Patient Follow-Up Note Patient: Giovanna Gottlieb Unit #: [id number]: 1940 Dicatated By: Giacomo Iqbal M.D.Date of Visit:Dec 20, 2020 Onc Med Follow-up/Prog Note Chief Complaint: Lung cancer. 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 By clinical evaluation her disease appeared to be stage IIB (T3, N0, M0). On 07/10/2017 she was admitted to the hospital with an acute COPD exacerbation in association with influenza A infection. Her chest CT at that time showed a mixed soft tissue attenuation mass in the right upper lobe extending anteriorly and superiorly to contact the superior mediastinum and anterior parietal pleura. The mass measured 7.6 x 3.2 x 6.1 cm. The pulmonary vasculature appeared attenuated within the mass and the bronchi appeared occluded. There was mildly prominent mediastinal and right hilar lymphadenopathy. A 7 mm pulmonary nodule was noted in the right anterior upper lobe. Reticular opacities in the right upper lobe were felt to possibly represent a superimposing infiltrate. She was discharged the following day. Further evaluation with PET/CT on 08/02/2017 showed a 4 cm of thickened lower sigmoid colon with SUV 9.4, consistent with malignancy. There were no sites of pathologic adenopathy or other metastatic disease below the diaphragm. The right upper lobe lung mass measured 4 x 3 cm with SUV 19.4, also consistent with malignancy. There was associated subtotal obstruction of the bronchus to the anterior segment right upper lobe with postobstructive pneumonitis. Also noted was a 1.7 cm pulmonary nodule in the base of the anterior segment right upper lobe with SUV 8.0. Increased FDG uptake throughout the bone marrow was felt to be nonspecific. It appeared accentuated in T11 and L2, suspicious for metastatic disease. Colonoscopy on 08/04/2017 showed multiple polyps including a 1 cm sessile polyp and 2 polyps measuring 5 mm in the cecum, a 5 mm sessile polyp in the ascending colon, 1 cm pedunculated polyp in 2 separate pedunculated polyps measuring 7 mm in the sigmoid colon, and a 7 mm pedunculated polyp within the rectum at 10 cm. All of these were removed endoscopically. Also noted was a large pedunculated polyp in the rectosigmoid area at about 20 cm. It measured 3-4 cm. The stalk could not be identified. It apparently was not removed. Biopsy, though, showed tubulovillous adenoma with low-grade dysplasia. It was reported to be completely excised, though I had assumed that to be inaccurate. The rectal polyp and one of the polyps in the cecum also showed tubulovillous adenoma. Another polyp within the cecum was hyperplastic and the polyp in the ascending colon was noted to be adenomatous. A smaller sigmoid polyp also was adenomatous. On 08/20/2017 she underwent bronchoscopy followed by mediastinoscopy with biopsies lymph nodes from station 4R and from the cervical pretracheal region. The bronchoscopy showed an endobronchial exophytic lesion at the orifice to the right upper lobe bronchus. Biopsy showed non-small cell carcinoma consistent with poorly differentiated squamous cell carcinoma. The lymph node biopsies were benign. On 09/08/2017 she began treatment with radiation concurrently with weekly carboplatin/chemotherapy. Her radiation was completed on 10/24/2017 to a total dose of 6300 cGy. She had received her 6th weekly infusion of carboplatin on 10/16/2017. She had significant fatigue during her treatment, but she otherwise tolerated it pretty well. Restaging CT scans of the chest, abdomen, and pelvis on 12/04/2017 showed interval decrease in the right upper lobe mass measuring 5.4 x 1.8 x 2.5 cm compared to 7.6 x 3.4 x 3.57 cm on the pretreatment study. There was also interval decreased mediastinal lymphadenopathy. A right lower lobe lateral costophrenic angle subpleural nodule appeared stable measuring 4-5 mm. On 12/24/2017 show underwent laparoscopic sigmoid colectomy with stapled EEA anastomosis. Grossly there was no evidence of metastatic involvement in the liver or peritoneal carcinomatosis. Pathology showed moderately differentiated adenocarcinoma arising within a villoglandular polyp. Tumor was noted to invade into the muscularis propria, but it was confined to the muscularis. It measured 3.5 x 2.5 x 2.5 cm. There was no involvement in 3 regional lymph nodes. Repeat chest CT on 03/06/2018 showed right upper lobe anterior medial soft tissue mass measuring 4.3 x 1.3 cm with slight further improvement compared to the study in November. Prominent precarinal, right hilar, and subcarinal lymph nodes appeared stable. Noncalcified subcentimeter nodules in the right upper lobe and at the right lung base appeared stable. Also noted were treatment related changes in the right upper lobe and right hilum. She had further evaluation with PET/CT on 03/28/2018. It showed decreased FDG uptake within the right upper lobe mass, consistent with response to therapy. A superior right hilar lymph node also showed decreased FDG uptake, SUV 6.7 compared to 21.8 on the pretreatment study. Small mediastinal nodes in the prevascular, precarinal, and subcarinal territories were FDG positive and unchanged from the prior study. She was referred to Dr. Easton for consideration of surgical resection. He felt that she would not be an appropriate candidate for surgery due to the suspected lymph node involvement and the need for a total pneumonectomy. I had seen her for a follow-up visit on 05/27/2018. At that point she was reporting significant pain in her back which had started just after her previous visit in February. X-ray of the thoracic spine was unremarkable. CT of the thoracic spine showed stable previous minor anterior superior compression fractures at T1, T2, T3, and T4. There was mild posterior disc bulging or shallow protrusion at the T8-T9, also without change. There was no evidence of a neoplastic process of the thoracic spine. Chest CT showed stable residual neoplastic mass lesion in the anterior segment right upper lobe and stable right upper and lower lobe pulmonary parenchymal nodules. Nonenlarged mediastinal lymph nodes also appeared stable. Further evaluation with bone scan on 06/15/2018 also showed no evidence of osseous metastatic disease. Given those findings, she continued on observation/expectant management. A restaging PET/CT on 10/03/2018 showed medial right upper lobe consolidation which was FDG positive and felt to be consistent with recurrent disease. Multiple mediastinal lymph nodes were also felt to have significantly progressed, indicative of active metastatic disease. There were additional areas of lymph node progression noted in the left hilum and in the prevascular and inferior right hilar territories. In October she had been seen in the emergency room with suspected TIA. Contrast-enhanced head CT at that time showed no acute intracranial abnormality. Repeat chest CT on 01/15/2019 showed slight increase in the with of the medial right upper lobe neoplasm, measuring 3.5 x 1.7 cm. There was slight increase in soft tissue thickening. An additional 6 mm nodule appeared stable and a right lower lobe 4 mm nodule appeared stable. There was slight increase in the size of lymph nodes in the precarinal area and at the hilum, but they were still subcentimeter. There were no other findings of disease progression. Her restaging PET/CT on 04/17/2019 showed mild activity in the medial right upper lobe consolidation, unchanged from prior studies. There was also no significant change in FDG positive lymph nodes, including a superior right hilar node with SUV 8.1 compared to 9.9 and a precarinal node with SUV 5.7 compared to 6.2. Multiple other nodes also demonstrated no significant change. There were no new areas of abnormal uptake. She was seen in the emergency room in July 2019 and diagnosed with pneumonia. She improved on outpatient therapy, but during subsequent follow-up, she continued to have limited activity tolerance and marginal performance status. Her chest CT on 08/02/2019 showed soft tissue neoplasm in the medial right upper lobe adjacent to the mediastinum measuring approximately 3.3 x 1.0 cm, slightly decreased in size compared to the 2 most recent studies. An adjacent satellite lymph node measuring 5 mm also appeared stable, and a prominent precarinal lymph node measuring 8 mm appeared stable. There was no progressed lymphadenopathy or other evidence of disease progression. Advanced emphysematous changes were noted. Her restaging chest CT on 11/09/2019 showed unchanged soft tissue neoplasm in the medial right upper lobe adjacent to the mediastinum measuring approximately 3.4 x 1.0 cm. An adjacent satellite nodule measuring 5 mm also appeared stable, as did a prominent precarinal lymph node measuring 8 mm. A small noncalcified nodule in the right lower lobe near the diaphragm measuring 4 mm appeared unchanged. A noncalcified nodule in the right upper lobe measuring 5.5 mm appeared to be new. Additional new nodules were noted in the right middle lobe measuring 4.7 and 4.8 mm. A hazy groundglass nodule in the right lower lobe appeared slightly more prominent measuring 3.8 mm. In the absence of any evidence of significant disease progression, she continued observation/symptomatic management. Her other medical illnesses include hypertension, hyperlipidemia, GERD, fibromyalgia, and COPD. She has additional history of cervical spondylosis with myelopathy. I had previously seen her in July 2015 in regard to leukocytosis, which appeared to be reactive. Her prior surgeries limited to NAE/BSO in 1978 and carpal tunnel release bilaterally in 1992. She has a history of smoking 1 pack of cigarettes daily in excess of 50 years. INTERIM HISTORY: Her chest CT on 06/16/2020 showed stable soft tissue neoplasm in the medial right upper lobe adjacent to the mediastinum measuring 3.4 x 1.0 cm. An adjacent satellite nodule measuring 5 mm also appeared unchanged. A previously described 8 mm nodule in the right middle lobe had decreased in size to 3 mm. Additional subcentimeter noncalcified nodules in the right lower lobe and right upper lobe also appeared unchanged. There was no progressed mediastinal or hilar lymphadenopathy. She continued observation/symptomatic management. She was seen in the emergency room on 09/03/2020 with back pain. Her lumbar spine CT showed shallow disc bulging at multiple levels, but with patent spinal canal and neural foramina and with no evidence of metastatic disease. Bone scan on 10/24/2020 showed no evidence for osseous metastatic disease. Restaging CT scans of the chest, abdomen, and pelvis on 12/18/2020 showed stable posttreatment appearance of the medial right upper lobe curvilinear soft tissue with no increase in size of the lesions and with no new pulmonary nodules or adenopathy. There was evidence for chronic emphysema. A left adrenal nodule appeared stable, consistent with adenoma. There is no evidence of metastatic disease in the abdomen or pelvis. She is seen for a scheduled visit. She has not have good energy, but she is able to do housework. ECOG score is 1. Appetite is not very good, but she has been eating better lately. She has visual decline due to macular degeneration. She has cough productive of silva-colored sputum and she is short of breath with activity. She does not complain of chest pain. She has no GI or complaints. She continues to have pain in her shoulders and in her mid back area. She does not complain of headache. She sometimes has dizziness. She has no numbness/paresthesia or other focal neurologic symptoms. She has ongoing problems with anxiety. She sleeps okay with trazodone. Medications: Advair Diskus 1 Aerosol Powder, Breath Activated Inhalation b.i.d., ALPRAZolam 1 (0.25 mg) Tablet Oral PRN, Aspirin 1 (81 mg) Tablet Oral daily, DULoxetine HCl 1 (60 mg) Capsule Delayed Release Particles Oral daily, Incruse Ellipta 1 (62.5 mcg/inh) Aerosol Powder, Breath Activated Inhalation daily, Lyrica 1 Capsule (of 75 mg) Oral daily, Ocuvite Adult Formula 1 Capsule Oral daily, Omeprazole 1 Capsule (of 20 mg) Capsule Delayed Release Oral daily, Percocet 1 Tablet (of 7.5-325 mg) Oral PRN, Pravastatin Sodium 1 (40 mg) Tablet Oral daily, Singulair 1 Tablet (of 10 mg) Oral at bedtime, traZODone HCl 1 Tablet (of 50 mg) Oral at bedtime Allergies: Codeine Sulfate, Penicillins, Sulfa Antibiotics, and Vicodin. Vital Signs: Performed on Dec 20, 2020 12:28 Height - 63.00 in Weight - 130.2 lbs (LOW) BSA - 1.61 sq.m BMI - 23.06 Temperature - 97.1 F (LOW) Pulse - 99 /min Respiration - 19 /min BP - 132/75 mm(hg) O2 Sat - 90 % (LOW) Pain - 0 Physical Examination: Constitutional - She appears somewhat weak generally, Eyes - Sclerae nonicteric. Conjunctivae clear, ENMT - Mouth is dry. There are no lesions noted in the oral cavity, Hematologic/Lymphatic - No cervical, clavicular, or axillary adenopathy, Respiratory - Lungs sound clear with diminished air movement bilaterally, Cardiovascular - Heart rhythm is regular. There is a I/ systolic murmur. There is no gallop or rub noted, Abdomen - Soft. Liver and spleen are not enlarged. There is no abdominal mass or ascites noted and there is no inguinal adenopathy, Extremities - No edema. She has extensive purpura, Neurologic - No focal neurologic deficits noted. Lab/Imaging: Test performed on Sep 18, 2020 10:54 Magnesium 1.8 mg/dL Sodium 141 mmol/L Potassium 4.1 mmol/L Chloride 103 mmol/L CO2 29 mmol/L Anion Gap 13.1 BUN 12 mg/dL Creatinine 0.6 mg/dL Cr Clearance (Est) 73.82 mL/min Glucose 79 mg/dL Osmolality - Calculated 291 mOsm/kg Calcium 9.8 mg/dL Protein, Total 7.4 g/dL Albumin 3.8 g/dL Globulin 3.6 g/dL Bilirubin, Total 0.3 mg/dL ALT (SGPT) 11 U/L AST (SGOT) 20 U/L Alkaline Phosphatase 68 IU/L WBC 6.9 10 3/uL RBC 5.79 10 6/uL HGB 16.2 g/dL HCT 50.4 % MCV 87.0 fL MCH 28.0 pg MCHC 32.1 g/dL RDW 14.9 % Platelet Count 254 10 3/cmm MPV 9.3 fL Neutrophils 3.60 10 3/uL Lymphocytes 2.2 10 3/uL Monocytes 0.8 10 3/uL Eosinophils 0.2 10 3/uL Basophils 0.1 10 3/uL Neutrophil % 52.5 % Lymphocyte % 32.6 % Monocyte % 11.1 % Eosinophil % 2.8 % Basophils % 0.7 % NRBC % 0 % Problem List: 1. Poorly differentiated squamous cell carcinoma involving the upper lobe of the right lung. By clinical evaluation her disease appeared to be stage IIB (T3, N0, M0), as her PET/CT was suspicious for a separate tumor nodule within the same lobe. 2. 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 She underwent laparoscopic sigmoid colectomy on 12/24/2017. 3. COPD. 4. Hypertension. 5. Hyperlipidemia. 6. GERD. 7. Fibromyalgia. 8. Nicotine dependence (cigarettes). Problems Addressed with this Encounter and Plan: 1. 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 By clinical evaluation her disease appeared to be stage IIB (T3, N0, M0), as her PET/CT was suspicious for a separate tumor nodule within the same lobe. On 09/08/2017 she began radiation concurrently with weekly carboplatin/Taxol chemotherapy. She completed radiation on 10/24/2017 to a total dose of 6300 cGy. She was given a total of 6 weekly infusions of carboplatin/Taxol. She had significant fatigue during the treatment, but she otherwise tolerated it pretty well. Her restaging CT scans on 12/04/2017 showed a decrease in the right upper lobe lung mass, but there was still significant residual mass in that area and there were persistent fibrotic changes in the right hilar area on her follow-up CT scans. In May 2018 she had presented with increasing pain in the mid back. The symptoms were suspicious for metastatic involvement, but there was no evidence for metastatic involvement in the bone by CT or bone scan. She declined to have an MRI. Her chest CT that time showed no progression of the lung cancer. Her restaging PET/CT on 10/03/2018 showed findings which were felt to be consistent with disease recurrence in the medial right upper lobe as well as progression of malignant mediastinal adenopathy. Her repeat chest CT in January 2019 also showed findings which were felt to be suspicious for disease progression in the right upper lobe, but her restaging PET/CT on 04/17/2019 showed stable findings with no evidence of disease progression. During follow-up she has continued to have fatigue and limited activity tolerance, and she has some chronic shortness of breath and cough. Her main complaint has been persistent pain in the mid back area. There has been no evidence, though, of metastatic disease and no evidence of local disease progression in the right lung. Her overall clinical status at this point appears stable. She continues observation/symptomatic management. I will see her again in 3 months I will tentatively plan to repeat her CT scans again in 6 months. 2. 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 She underwent laparoscopic sigmoid colectomy on 12/24/2017. She has been followed expectantly with no evidence of recurrence. Signed By: Giacomo Iqbal M.D. <<Signature on File>>
== END 2020-12-20 06:25 | disposition home or self-care (01) ==
LOC: ONCMED 06:27
PROVIDERS: PCP Internal Medicine; Visit Provider Internal Medicine Medical Oncology
DX: C34.11 Malignant neoplasm of upper lobe, right bronchus or lung (principal); C78.5 Secondary malignant neoplasm of large intestine and rectum; J44.9 Chronic obstructive pulmonary disease, unspecified; I10 Essential (primary) hypertension; E78.5 Hyperlipidemia, unspecified; K21.9 Gastro-esophageal reflux disease without esophagitis; M79.7 Fibromyalgia; F17.210 Nicotine dependence, cigarettes, uncomplicated; Z79.899 Other long term (current) drug therapy
CPT/HCPCS: 99214

== ENCOUNTER 2021-06-14 14:09 | Outpatient (CLI) | payer MEDICARE, MEDICAID, SELFPAY ==
[2021-06-14 14:36] LABS: Basophils % 0.5 %; Eosinophils # 0.2 10^3/uL (0.0-0.8); Eosinophils % 2.8 %; Hematocrit 50.7 % (37.0-47.0); Hemoglobin 16.3 g/dL (11.5-15.3); Lymphocytes # 2.5 10^3/uL (0.8-4.8); Lymphocytes % 28.7 %; Mean Corpuscular HGB Conc 32.1 g/dL (30.0-36.0); Mean Corpuscular Hemoglobin 28.8 pg (28.0-34.0); Mean Corpuscular Volume 89.6 fl (81-99); Mean Platelet Volume 9.1 fL (7.4-10.4); Monocytes # 0.8 10^3/uL (0.2-0.9); Monocytes % 9.3 %; Neutrophils # 4.99 10^3/uL (1.8-7.7); Neutrophils % 58.5 %; Nucleated Red Blood Cells % 0 %; Platelet Count 282 10^3/cmm (130-400); Red Blood Count 5.66 10^6/uL (4.1-5.3); Red Cell Distribution Width 14.6 % (12.1-15.1); White Blood Count 8.5 10^3/uL (4.0-10.0)
[2021-06-14 14:51] LABS: Alanine Aminotransferase 7 U/L (0-33); Albumin Level 3.9 g/dL (3.5-5.2); Alkaline Phosphatase 87 IU/L (35-105); Aspartate Amino Transferase 16 U/L (0-32); Blood Urea Nitrogen 10 mg/dL (8-23); Calcium 9.1 mg/dL (8.5-10.5); Carbon Dioxide 29 mmol/L (22-29); Chloride 102 mmol/L (98-107); Globulin 3.5 g/dL (1.3-4.6); Glucose 82 mg/dL (65-115); Osmolality Calculated 288 mOsm/kg (285-295); Sodium 140 mmol/L (136-145); Total Bilirubin 0.3 mg/dL (0.15-1.2); Total Protein 7.4 g/dL (6.6-8.7)
--- NOTE | 2021-06-17 12:01 | ONC FU_ITS ---
Dr. Iqbal Patient Follow-Up Note Patient: Giovanna Gottlieb Unit #: [id number]: [id number] Dicatated By: Giacomo Iqbal M.D.Date of Visit:Jun 14, 2021 Onc Med Follow-up/Prog Note Chief Complaint: Lung cancer. 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 By clinical evaluation her disease appeared to be stage IIB (T3, N0, M0). On 07/10/2017 she was admitted to the hospital with an acute COPD exacerbation in association with influenza A infection. Her chest CT at that time showed a mixed soft tissue attenuation mass in the right upper lobe extending anteriorly and superiorly to contact the superior mediastinum and anterior parietal pleura. The mass measured 7.6 x 3.2 x 6.1 cm. The pulmonary vasculature appeared attenuated within the mass and the bronchi appeared occluded. There was mildly prominent mediastinal and right hilar lymphadenopathy. A 7 mm pulmonary nodule was noted in the right anterior upper lobe. Reticular opacities in the right upper lobe were felt to possibly represent a superimposing infiltrate. She was discharged the following day. Further evaluation with PET/CT on 08/02/2017 showed a 4 cm of thickened lower sigmoid colon with SUV 9.4, consistent with malignancy. There were no sites of pathologic adenopathy or other metastatic disease below the diaphragm. The right upper lobe lung mass measured 4 x 3 cm with SUV 19.4, also consistent with malignancy. There was associated subtotal obstruction of the bronchus to the anterior segment right upper lobe with postobstructive pneumonitis. Also noted was a 1.7 cm pulmonary nodule in the base of the anterior segment right upper lobe with SUV 8.0. Increased FDG uptake throughout the bone marrow was felt to be nonspecific. It appeared accentuated in T11 and L2, suspicious for metastatic disease. Colonoscopy on 08/04/2017 showed multiple polyps including a 1 cm sessile polyp and 2 polyps measuring 5 mm in the cecum, a 5 mm sessile polyp in the ascending colon, 1 cm pedunculated polyp in 2 separate pedunculated polyps measuring 7 mm in the sigmoid colon, and a 7 mm pedunculated polyp within the rectum at 10 cm. All of these were removed endoscopically. Also noted was a large pedunculated polyp in the rectosigmoid area at about 20 cm. It measured 3-4 cm. The stalk could not be identified. It apparently was not removed. Biopsy, though, showed tubulovillous adenoma with low-grade dysplasia. It was reported to be completely excised, though I had assumed that to be inaccurate. The rectal polyp and one of the polyps in the cecum also showed tubulovillous adenoma. Another polyp within the cecum was hyperplastic and the polyp in the ascending colon was noted to be adenomatous. A smaller sigmoid polyp also was adenomatous. On 08/20/2017 she underwent bronchoscopy followed by mediastinoscopy with biopsies lymph nodes from station 4R and from the cervical pretracheal region. The bronchoscopy showed an endobronchial exophytic lesion at the orifice to the right upper lobe bronchus. Biopsy showed non-small cell carcinoma consistent with poorly differentiated squamous cell carcinoma. The lymph node biopsies were benign. On 09/08/2017 she began treatment with radiation concurrently with weekly carboplatin/chemotherapy. Her radiation was completed on 10/24/2017 to a total dose of 6300 cGy. She had received her 6th weekly infusion of carboplatin on 10/16/2017. She had significant fatigue during her treatment, but she otherwise tolerated it pretty well. Restaging CT scans of the chest, abdomen, and pelvis on 12/04/2017 showed interval decrease in the right upper lobe mass measuring 5.4 x 1.8 x 2.5 cm compared to 7.6 x 3.4 x 3.57 cm on the pretreatment study. There was also interval decreased mediastinal lymphadenopathy. A right lower lobe lateral costophrenic angle subpleural nodule appeared stable measuring 4-5 mm. On 12/24/2017 show underwent laparoscopic sigmoid colectomy with stapled EEA anastomosis. Grossly there was no evidence of metastatic involvement in the liver or peritoneal carcinomatosis. Pathology showed moderately differentiated adenocarcinoma arising within a villoglandular polyp. Tumor was noted to invade into the muscularis propria, but it was confined to the muscularis. It measured 3.5 x 2.5 x 2.5 cm. There was no involvement in 3 regional lymph nodes. Repeat chest CT on 03/06/2018 showed right upper lobe anterior medial soft tissue mass measuring 4.3 x 1.3 cm with slight further improvement compared to the study in November. Prominent precarinal, right hilar, and subcarinal lymph nodes appeared stable. Noncalcified subcentimeter nodules in the right upper lobe and at the right lung base appeared stable. Also noted were treatment related changes in the right upper lobe and right hilum. She had further evaluation with PET/CT on 03/28/2018. It showed decreased FDG uptake within the right upper lobe mass, consistent with response to therapy. A superior right hilar lymph node also showed decreased FDG uptake, SUV 6.7 compared to 21.8 on the pretreatment study. Small mediastinal nodes in the prevascular, precarinal, and subcarinal territories were FDG positive and unchanged from the prior study. She was referred to Dr. Easton for consideration of surgical resection. He felt that she would not be an appropriate candidate for surgery due to the suspected lymph node involvement and the need for a total pneumonectomy. I had seen her for a follow-up visit on 05/27/2018. At that point she was reporting significant pain in her back which had started just after her previous visit in February. X-ray of the thoracic spine was unremarkable. CT of the thoracic spine showed stable previous minor anterior superior compression fractures at T1, T2, T3, and T4. There was mild posterior disc bulging or shallow protrusion at the T8-T9, also without change. There was no evidence of a neoplastic process of the thoracic spine. Chest CT showed stable residual neoplastic mass lesion in the anterior segment right upper lobe and stable right upper and lower lobe pulmonary parenchymal nodules. Nonenlarged mediastinal lymph nodes also appeared stable. Further evaluation with bone scan on 06/15/2018 also showed no evidence of osseous metastatic disease. Given those findings, she continued on observation/expectant management. A restaging PET/CT on 10/03/2018 showed medial right upper lobe consolidation which was FDG positive and felt to be consistent with recurrent disease. Multiple mediastinal lymph nodes were also felt to have significantly progressed, indicative of active metastatic disease. There were additional areas of lymph node progression noted in the left hilum and in the prevascular and inferior right hilar territories. In October she had been seen in the emergency room with suspected TIA. Contrast-enhanced head CT at that time showed no acute intracranial abnormality. Repeat chest CT on 01/15/2019 showed slight increase in the with of the medial right upper lobe neoplasm, measuring 3.5 x 1.7 cm. There was slight increase in soft tissue thickening. An additional 6 mm nodule appeared stable and a right lower lobe 4 mm nodule appeared stable. There was slight increase in the size of lymph nodes in the precarinal area and at the hilum, but they were still subcentimeter. There were no other findings of disease progression. Her restaging PET/CT on 04/17/2019 showed mild activity in the medial right upper lobe consolidation, unchanged from prior studies. There was also no significant change in FDG positive lymph nodes, including a superior right hilar node with SUV 8.1 compared to 9.9 and a precarinal node with SUV 5.7 compared to 6.2. Multiple other nodes also demonstrated no significant change. There were no new areas of abnormal uptake. She was seen in the emergency room in July 2019 and diagnosed with pneumonia. She improved on outpatient therapy, but during subsequent follow-up, she continued to have limited activity tolerance and marginal performance status. Her chest CT on 08/02/2019 showed soft tissue neoplasm in the medial right upper lobe adjacent to the mediastinum measuring approximately 3.3 x 1.0 cm, slightly decreased in size compared to the 2 most recent studies. An adjacent satellite lymph node measuring 5 mm also appeared stable, and a prominent precarinal lymph node measuring 8 mm appeared stable. There was no progressed lymphadenopathy or other evidence of disease progression. Advanced emphysematous changes were noted. Her restaging chest CT on 11/09/2019 showed unchanged soft tissue neoplasm in the medial right upper lobe adjacent to the mediastinum measuring approximately 3.4 x 1.0 cm. An adjacent satellite nodule measuring 5 mm also appeared stable, as did a prominent precarinal lymph node measuring 8 mm. A small noncalcified nodule in the right lower lobe near the diaphragm measuring 4 mm appeared unchanged. A noncalcified nodule in the right upper lobe measuring 5.5 mm appeared to be new. Additional new nodules were noted in the right middle lobe measuring 4.7 and 4.8 mm. A hazy groundglass nodule in the right lower lobe appeared slightly more prominent measuring 3.8 mm. In the absence of any evidence of significant disease progression, she continued observation/symptomatic management. Her other medical illnesses include hypertension, hyperlipidemia, GERD, fibromyalgia, and COPD. She has additional history of cervical spondylosis with myelopathy. I had previously seen her in July 2015 in regard to leukocytosis, which appeared to be reactive. Her prior surgeries limited to NAE/BSO in 1978 and carpal tunnel release bilaterally in 1992. She has a history of smoking 1 pack of cigarettes daily in excess of 50 years. INTERIM HISTORY: Her chest CT on 06/16/2020 showed stable soft tissue neoplasm in the medial right upper lobe adjacent to the mediastinum measuring 3.4 x 1.0 cm. An adjacent satellite nodule measuring 5 mm also appeared unchanged. A previously described 8 mm nodule in the right middle lobe had decreased in size to 3 mm. Additional subcentimeter noncalcified nodules in the right lower lobe and right upper lobe also appeared unchanged. There was no progressed mediastinal or hilar lymphadenopathy. She continued observation/symptomatic management. She was seen in the emergency room on 09/03/2020 with back pain. Her lumbar spine CT showed shallow disc bulging at multiple levels, but with patent spinal canal and neural foramina and with no evidence of metastatic disease. Bone scan on 10/24/2020 showed no evidence for osseous metastatic disease. Restaging CT scans of the chest, abdomen, and pelvis on 12/18/2020 showed stable posttreatment appearance of the medial right upper lobe curvilinear soft tissue with no increase in size of the lesions and with no new pulmonary nodules or adenopathy. There was evidence for chronic emphysema. A left adrenal nodule appeared stable, consistent with adenoma. There was no evidence of metastatic disease in the abdomen or pelvis. With those findings, she continued expectant management. She is seen for a follow-up visit. She complains that she has been battling depression. She also has been having anxiety and panic attacks. She has no energy and no appetite. She has limited activity, but she is able to do housework. Her ECOG score is 1. She says she has lost weight, but by our scale it appears to be stable. She does not have fever or night sweats. She has a lot of sinus drainage and she has cough productive of grayish phlegm. She is short of breath with activity. She had stopped using the Incruse Ellipta inhaler because she said it was making her breathing worse. She sometimes has a heavy feeling in her chest. She has no GI or complaints. She has pain in her neck and she still has the pain in her mid back. She also reports having leg cramps. She does not complain of headache, and she has no focal neurologic symptoms. Medications: Advair Diskus 1 Aerosol Powder, Breath Activated Inhalation b.i.d., ALPRAZolam 1 (0.25 mg) Tablet Oral PRN, Aspirin 1 (81 mg) Tablet Oral daily, DULoxetine HCl 1 (60 mg) Capsule Delayed Release Particles Oral daily, Lyrica 1 Capsule (of 75 mg) Oral daily, Ocuvite Adult Formula 1 Capsule Oral daily, Omeprazole 1 Capsule (of 20 mg) Capsule Delayed Release Oral daily, Percocet 1 Tablet (of 7.5-325 mg) Oral PRN, Pravastatin Sodium 1 (40 mg) Tablet Oral daily, Singulair 1 Tablet (of 10 mg) Oral at bedtime, traZODone HCl 1 Tablet (of 50 mg) Oral at bedtime Allergies: Codeine Sulfate, Penicillins, Sulfa Antibiotics, and Vicodin. Vital Signs: Performed on Jun 14, 2021 16:12 Height - 63.00 in Weight - 130.4 lbs (HIGH) BSA - 1.61 sq.m BMI - 23.10 Temperature - 97.4 F (LOW) Pulse - 95 /min Respiration - 18 /min BP - 133/76 mm(hg) O2 Sat - 91 % (LOW) Pain - 0 Fatigue - 6 Physical Examination: Constitutional - She appears somewhat weak generally, Eyes - Sclerae nonicteric. Conjunctivae clear, ENMT - No lesions noted in the oral cavity, Hematologic/Lymphatic - No cervical, clavicular, or axillary adenopathy, Respiratory - Lungs sound clear with diminished air movement bilaterally, Cardiovascular - Heart rhythm is regular. There is no murmur, gallop, or rub noted, Abdomen - Soft. Liver and spleen are not enlarged. There is no abdominal mass or ascites noted and there is no inguinal adenopathy, Extremities - No edema, Neurologic - No focal neurologic deficits noted. Lab/Imaging: Test performed on Jun 14, 2021 14:20 Sodium 140 mmol/L Potassium 4.0 mmol/L Chloride 102 mmol/L CO2 29 mmol/L Anion Gap 13.0 BUN 10 mg/dL Creatinine 0.5 mg/dL Cr Clearance (Est) 86.59 mL/min Glucose 82 mg/dL Osmolality - Calculated 288 mOsm/kg Calcium 9.1 mg/dL Protein, Total 7.4 g/dL Albumin 3.9 g/dL Globulin 3.5 g/dL Bilirubin, Total 0.3 mg/dL ALT (SGPT) 7 U/L AST (SGOT) 16 U/L Alkaline Phosphatase 87 IU/L WBC 8.5 10 3/uL RBC 5.66 10 6/uL HGB 16.3 g/dL HCT 50.7 % MCV 89.6 fl MCH 28.8 pg MCHC 32.1 g/dL RDW 14.6 % Platelet Count 282 10 3/cmm MPV 9.1 fL Neutrophils 4.99 10 3/uL Lymphocytes 2.5 10 3/uL Monocytes 0.8 10 3/uL Eosinophils 0.2 10 3/uL Basophils 0.0 10 3/uL Neutrophil % 58.5 % Lymphocyte % 28.7 % Monocyte % 9.3 % Eosinophil % 2.8 % Basophils % 0.5 % NRBC % 0 % Problem List: 1. Poorly differentiated squamous cell carcinoma involving the upper lobe of the right lung. By clinical evaluation her disease appeared to be stage IIB (T3, N0, M0), as her PET/CT was suspicious for a separate tumor nodule within the same lobe. 2. 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 She underwent laparoscopic sigmoid colectomy on 12/24/2017. 3. COPD. 4. Hypertension. 5. Hyperlipidemia. 6. GERD. 7. Fibromyalgia. 8. Nicotine dependence (cigarettes). Problems Addressed with this Encounter and Plan: 1. 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 By clinical evaluation her disease appeared to be stage IIB (T3, N0, M0), as her PET/CT was suspicious for a separate tumor nodule within the same lobe. On 09/08/2017 she began radiation concurrently with weekly carboplatin/Taxol chemotherapy. She completed radiation on 10/24/2017 to a total dose of 6300 cGy. She was given a total of 6 weekly infusions of carboplatin/Taxol. She had significant fatigue during the treatment, but she otherwise tolerated it pretty well. Her restaging CT scans on 12/04/2017 showed a decrease in the right upper lobe lung mass, but there was still significant residual mass in that area and there were persistent fibrotic changes in the right hilar area on her follow-up CT scans. In May 2018 she had presented with increasing pain in the mid back. The symptoms were suspicious for metastatic involvement, but there was no evidence for metastatic involvement in the bone by CT or bone scan. She declined to have an MRI. Her chest CT that time showed no progression of the lung cancer. Her restaging PET/CT on 10/03/2018 showed findings which were felt to be consistent with disease recurrence in the medial right upper lobe as well as progression of malignant mediastinal adenopathy. Her repeat chest CT in January 2019 also showed findings which were felt to be suspicious for disease progression in the right upper lobe, but her restaging PET/CT on 04/17/2019 showed stable findings with no evidence of disease progression. During follow-up she has continued to have fatigue and limited activity tolerance, and she has some chronic shortness of breath and cough. Her main complaint has been persistent pain in the mid back area. As of her follow-up visit in December 2020 there has been no evidence of recurrence/progression of the lung cancer. She is due for repeat CT scans, and those will be scheduled now. She will have further evaluation as indicated. In the meantime, she will be given a prescription for an albuterol inhaler to use as needed. 2. 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 She underwent laparoscopic sigmoid colectomy on 12/24/2017. She has been followed expectantly with no evidence of recurrence. 3. She has been having increased anxiety and depression. She will be tapered off Cymbalta over the next 7 days and she will then begin treatment with paroxetine 20 mg daily. She has a prescription for alprazolam to take as needed. She will be scheduled for a follow-up visit in 6 weeks. Signed By: Giacomo Iqbal M.D. <<Signature on File>>
== END 2021-06-14 14:10 | disposition home or self-care (01) ==
PROVIDERS: PCP Internal Medicine; Visit Provider Internal Medicine Medical Oncology
DX: Z08 Encounter for follow-up examination after completed treatment for malignant neoplasm (principal); Z85.118 Personal history of other malignant neoplasm of bronchus and lung; Z85.038 Personal history of other malignant neoplasm of large intestine; J44.9 Chronic obstructive pulmonary disease, unspecified; I10 Essential (primary) hypertension; E78.5 Hyperlipidemia, unspecified; K21.9 Gastro-esophageal reflux disease without esophagitis; M79.7 Fibromyalgia; F17.210 Nicotine dependence, cigarettes, uncomplicated; G89.3 Neoplasm related pain (acute) (chronic); F41.9 Anxiety disorder, unspecified; F32.9 Major depressive disorder, single episode, unspecified; Z79.899 Other long term (current) drug therapy; Z92.21 Personal history of antineoplastic chemotherapy; Z92.3 Personal history of irradiation
CPT/HCPCS: 36415; 80053; 85025; 99214

== ENCOUNTER 2021-07-02 08:31 | Outpatient (CLI) | payer MEDICARE, MEDICAID, SELFPAY ==
--- NOTE | 2021-07-02 | CT_ITS ---
WS: [id number] Exam: CT chest w con* [id number] Date/Time of Exam: 07/02/2021 8:52 AM Reason For Exam: LUNG CANCER DLP: 631.[address] scans at [facility] use at least one of these dose optimization techniques: automated e xposure control; mA and/or kV adjustment per patient size (includes targeted exams where dose is matc hed to clinical indication); or iterative reconstruction. Compared to previous study 12/18/2020. Stable appearing soft tissue density seen in the medial aspect of the right upper lobe may represent chronic subsegmental atelectasis and fibrosis. No new pulmonary masses or nodules are identified. Sta ble-appearing 5 mm nodule seen in the anterior segment of the right upper lobe. Mild emphysematous ch anges in the upper lung zones. The left lung is clear. No pleural or pericardial effusion. Stable 5 m m nodule in the lateral aspect of the radial right lower lobe. The airway is patent. The thoracic aor ta is normal in caliber. The central pulmonary arteries are clear. No mediastinal or hilar lymphadeno [place]. Stable 5 mm nodule in the medial aspect of the right lower lobe. Several small low-attenuation nodular densities in the thyroid lobes which are stable. Stable appearing small left adrenal nodule. Small right renal cyst. No other significant finding noted on CT sections the upper abdomen. No dest ructive bone lesions are chest wall defects. CT/CT chest w con* [id number] IMPRESSION: 1. Stable appearing subcentimeter nodules in the right lung as detailed above. No new nodules or masses are noted. 2. Stable appearing curvilinear soft tissue density seen along the medial aspec t of the right upper lobe which may represent chronic subsegmental atelectasis and/or infiltrate. Stable left adrenal nodule. 3. Pulmonary hyperinflation and emphysematous changes. 4. No significant lymphadenopathy in the chest. 5. Other stable minor findings as detailed above.
[2021-07-02] MEDS: iohexol 300 mg/mL 100 mL Btl IV (11:43)
== END 2021-07-02 08:32 | disposition home or self-care (01) ==
PROVIDERS: PCP Internal Medicine; Visit Provider Internal Medicine Medical Oncology
DX: C34.11 Malignant neoplasm of upper lobe, right bronchus or lung (principal); R91.8 Other nonspecific abnormal finding of lung field
CPT/HCPCS: 71260; Q9967

== ENCOUNTER 2021-07-26 08:51 | Outpatient (CLI) | payer MEDICARE, MEDICAID, SELFPAY ==
--- NOTE | 2021-07-27 07:48 | ONC FU_ITS ---
Dr. Iqbal Patient Follow-Up Note Patient: Giovanna Gottlieb Unit #: [id number]: 1940 Dicatated By: Giacomo Iqbal M.D.Date of Visit:Jul 26, 2021 Onc Med Follow-up/Prog Note Chief Complaint: Lung cancer. 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 By clinical evaluation her disease appeared to be stage IIB (T3, N0, M0). On 07/10/2017 she was admitted to the hospital with an acute COPD exacerbation in association with influenza A infection. Her chest CT at that time showed a mixed soft tissue attenuation mass in the right upper lobe extending anteriorly and superiorly to contact the superior mediastinum and anterior parietal pleura. The mass measured 7.6 x 3.2 x 6.1 cm. The pulmonary vasculature appeared attenuated within the mass and the bronchi appeared occluded. There was mildly prominent mediastinal and right hilar lymphadenopathy. A 7 mm pulmonary nodule was noted in the right anterior upper lobe. Reticular opacities in the right upper lobe were felt to possibly represent a superimposing infiltrate. She was discharged the following day. Further evaluation with PET/CT on 08/02/2017 showed a 4 cm of thickened lower sigmoid colon with SUV 9.4, consistent with malignancy. There were no sites of pathologic adenopathy or other metastatic disease below the diaphragm. The right upper lobe lung mass measured 4 x 3 cm with SUV 19.4, also consistent with malignancy. There was associated subtotal obstruction of the bronchus to the anterior segment right upper lobe with postobstructive pneumonitis. Also noted was a 1.7 cm pulmonary nodule in the base of the anterior segment right upper lobe with SUV 8.0. Increased FDG uptake throughout the bone marrow was felt to be nonspecific. It appeared accentuated in T11 and L2, suspicious for metastatic disease. Colonoscopy on 08/04/2017 showed multiple polyps including a 1 cm sessile polyp and 2 polyps measuring 5 mm in the cecum, a 5 mm sessile polyp in the ascending colon, 1 cm pedunculated polyp in 2 separate pedunculated polyps measuring 7 mm in the sigmoid colon, and a 7 mm pedunculated polyp within the rectum at 10 cm. All of these were removed endoscopically. Also noted was a large pedunculated polyp in the rectosigmoid area at about 20 cm. It measured 3-4 cm. The stalk could not be identified. It apparently was not removed. Biopsy, though, showed tubulovillous adenoma with low-grade dysplasia. It was reported to be completely excised, though I had assumed that to be inaccurate. The rectal polyp and one of the polyps in the cecum also showed tubulovillous adenoma. Another polyp within the cecum was hyperplastic and the polyp in the ascending colon was noted to be adenomatous. A smaller sigmoid polyp also was adenomatous. On 08/20/2017 she underwent bronchoscopy followed by mediastinoscopy with biopsies lymph nodes from station 4R and from the cervical pretracheal region. The bronchoscopy showed an endobronchial exophytic lesion at the orifice to the right upper lobe bronchus. Biopsy showed non-small cell carcinoma consistent with poorly differentiated squamous cell carcinoma. The lymph node biopsies were benign. On 09/08/2017 she began treatment with radiation concurrently with weekly carboplatin/chemotherapy. Her radiation was completed on 10/24/2017 to a total dose of 6300 cGy. She had received her 6th weekly infusion of carboplatin on 10/16/2017. She had significant fatigue during her treatment, but she otherwise tolerated it pretty well. Restaging CT scans of the chest, abdomen, and pelvis on 12/04/2017 showed interval decrease in the right upper lobe mass measuring 5.4 x 1.8 x 2.5 cm compared to 7.6 x 3.4 x 3.57 cm on the pretreatment study. There was also interval decreased mediastinal lymphadenopathy. A right lower lobe lateral costophrenic angle subpleural nodule appeared stable measuring 4-5 mm. On 12/24/2017 show underwent laparoscopic sigmoid colectomy with stapled EEA anastomosis. Grossly there was no evidence of metastatic involvement in the liver or peritoneal carcinomatosis. Pathology showed moderately differentiated adenocarcinoma arising within a villoglandular polyp. Tumor was noted to invade into the muscularis propria, but it was confined to the muscularis. It measured 3.5 x 2.5 x 2.5 cm. There was no involvement in 3 regional lymph nodes. Repeat chest CT on 03/06/2018 showed right upper lobe anterior medial soft tissue mass measuring 4.3 x 1.3 cm with slight further improvement compared to the study in November. Prominent precarinal, right hilar, and subcarinal lymph nodes appeared stable. Noncalcified subcentimeter nodules in the right upper lobe and at the right lung base appeared stable. Also noted were treatment related changes in the right upper lobe and right hilum. She had further evaluation with PET/CT on 03/28/2018. It showed decreased FDG uptake within the right upper lobe mass, consistent with response to therapy. A superior right hilar lymph node also showed decreased FDG uptake, SUV 6.7 compared to 21.8 on the pretreatment study. Small mediastinal nodes in the prevascular, precarinal, and subcarinal territories were FDG positive and unchanged from the prior study. She was referred to Dr. Easton for consideration of surgical resection. He felt that she would not be an appropriate candidate for surgery due to the suspected lymph node involvement and the need for a total pneumonectomy. I had seen her for a follow-up visit on 05/27/2018. At that point she was reporting significant pain in her back which had started just after her previous visit in February. X-ray of the thoracic spine was unremarkable. CT of the thoracic spine showed stable previous minor anterior superior compression fractures at T1, T2, T3, and T4. There was mild posterior disc bulging or shallow protrusion at the T8-T9, also without change. There was no evidence of a neoplastic process of the thoracic spine. Chest CT showed stable residual neoplastic mass lesion in the anterior segment right upper lobe and stable right upper and lower lobe pulmonary parenchymal nodules. Nonenlarged mediastinal lymph nodes also appeared stable. Further evaluation with bone scan on 06/15/2018 also showed no evidence of osseous metastatic disease. Given those findings, she continued on observation/expectant management. A restaging PET/CT on 10/03/2018 showed medial right upper lobe consolidation which was FDG positive and felt to be consistent with recurrent disease. Multiple mediastinal lymph nodes were also felt to have significantly progressed, indicative of active metastatic disease. There were additional areas of lymph node progression noted in the left hilum and in the prevascular and inferior right hilar territories. In October she had been seen in the emergency room with suspected TIA. Contrast-enhanced head CT at that time showed no acute intracranial abnormality. Repeat chest CT on 01/15/2019 showed slight increase in the with of the medial right upper lobe neoplasm, measuring 3.5 x 1.7 cm. There was slight increase in soft tissue thickening. An additional 6 mm nodule appeared stable and a right lower lobe 4 mm nodule appeared stable. There was slight increase in the size of lymph nodes in the precarinal area and at the hilum, but they were still subcentimeter. There were no other findings of disease progression. Her restaging PET/CT on 04/17/2019 showed mild activity in the medial right upper lobe consolidation, unchanged from prior studies. There was also no significant change in FDG positive lymph nodes, including a superior right hilar node with SUV 8.1 compared to 9.9 and a precarinal node with SUV 5.7 compared to 6.2. Multiple other nodes also demonstrated no significant change. There were no new areas of abnormal uptake. She was seen in the emergency room in July 2019 and diagnosed with pneumonia. She improved on outpatient therapy, but during subsequent follow-up, she continued to have limited activity tolerance and marginal performance status. Her chest CT on 08/02/2019 showed soft tissue neoplasm in the medial right upper lobe adjacent to the mediastinum measuring approximately 3.3 x 1.0 cm, slightly decreased in size compared to the 2 most recent studies. An adjacent satellite lymph node measuring 5 mm also appeared stable, and a prominent precarinal lymph node measuring 8 mm appeared stable. There was no progressed lymphadenopathy or other evidence of disease progression. Advanced emphysematous changes were noted. Her restaging chest CT on 11/09/2019 showed unchanged soft tissue neoplasm in the medial right upper lobe adjacent to the mediastinum measuring approximately 3.4 x 1.0 cm. An adjacent satellite nodule measuring 5 mm also appeared stable, as did a prominent precarinal lymph node measuring 8 mm. A small noncalcified nodule in the right lower lobe near the diaphragm measuring 4 mm appeared unchanged. A noncalcified nodule in the right upper lobe measuring 5.5 mm appeared to be new. Additional new nodules were noted in the right middle lobe measuring 4.7 and 4.8 mm. A hazy groundglass nodule in the right lower lobe appeared slightly more prominent measuring 3.8 mm. In the absence of any evidence of significant disease progression, she continued observation/symptomatic management. Her other medical illnesses include hypertension, hyperlipidemia, GERD, fibromyalgia, and COPD. She has additional history of cervical spondylosis with myelopathy. I had previously seen her in July 2015 in regard to leukocytosis, which appeared to be reactive. Her prior surgeries limited to NAE/BSO in 1978 and carpal tunnel release bilaterally in 1992. She has a history of smoking 1 pack of cigarettes daily in excess of 50 years. INTERIM HISTORY: Her chest CT on 06/16/2020 showed stable soft tissue neoplasm in the medial right upper lobe adjacent to the mediastinum measuring 3.4 x 1.0 cm. An adjacent satellite nodule measuring 5 mm also appeared unchanged. A previously described 8 mm nodule in the right middle lobe had decreased in size to 3 mm. Additional subcentimeter noncalcified nodules in the right lower lobe and right upper lobe also appeared unchanged. There was no progressed mediastinal or hilar lymphadenopathy. She continued observation/symptomatic management. She was seen in the emergency room on 09/03/2020 with back pain. Her lumbar spine CT showed shallow disc bulging at multiple levels, but with patent spinal canal and neural foramina and with no evidence of metastatic disease. Bone scan on 10/24/2020 showed no evidence for osseous metastatic disease. Restaging CT scans of the chest, abdomen, and pelvis on 12/18/2020 showed stable posttreatment appearance of the medial right upper lobe curvilinear soft tissue with no increase in size of the lesions and with no new pulmonary nodules or adenopathy. There was evidence for chronic emphysema. A left adrenal nodule appeared stable, consistent with adenoma. There was no evidence of metastatic disease in the abdomen or pelvis. With those findings, she continued expectant management. Repeat chest CT on 07/02/2021 showed stable appearance of the curvilinear soft tissue density seen along the medial aspect of the right upper lobe, thought to be most consistent with chronic subsegmental atelectasis and/or infiltrate. Subcentimeter nodules in the right lung also appeared stable. There was evidence for underlying pulmonary hyperinflation and emphysematous changes. Left adrenal nodule. Stable. Overall, there was no evidence of disease progression. She is seen for a follow-up visit. She has not been feeling very good generally, though she does have good days and bad days. She is able to do light work. ECOG score is 1. Her appetite is not good. She says she makes herself eat. Her weight is stable. She has not had fever or night sweats. She has not had sore mouth or throat, and she has not had difficulty swallowing. She has chronic cough productive of silva sputum. She thinks her breathing is getting worse. She also thinks that her oxygen level drops at night. She does not complain of chest pain. She has no GI or complaints. She has joint pain, especially in the knees and shoulders. She does not complain of headache. She says she feels off balance when she first wakes up in the morning. She has no numbness/paresthesia or other focal neurologic symptoms. Medications: Advair Diskus 1 Aerosol Powder, Breath Activated Inhalation b.i.d., Albuterol Sulfate (sensor) (108 (90 base) mcg/act) Aerosol Powder, Breath Activated Inhalation Take as Directed, ALPRAZolam 1 (0.25 mg) Tablet Oral PRN, Aspirin 1 (81 mg) Tablet Oral daily, Lyrica 1 Capsule (of 75 mg) Oral daily, Ocuvite Adult Formula 1 Capsule Oral daily, Omeprazole 1 Capsule (of 20 mg) Capsule Delayed Release Oral daily, PARoxetine HCl 1 Tablet (of 20 mg) Oral daily, Percocet 1 Tablet (of 7.5-325 mg) Oral PRN, Pravastatin Sodium 1 (40 mg) Tablet Oral daily, traZODone HCl 1 Tablet (of 50 mg) Oral at bedtime Allergies: Codeine Sulfate, Penicillins, Sulfa Antibiotics, and Vicodin. Vital Signs: Performed on Jul 26, 2021 10:41 Height - 63.00 in Weight - 131.8 lbs (HIGH) BSA - 1.62 sq.m BMI - 23.35 Temperature - 97.8 F (LOW) Pulse - 96 /min Respiration - 18 /min BP - 132/73 mm(hg) O2 Sat - 98 % Pain - 7 Fatigue - 7 Physical Examination: Constitutional - She appears somewhat weak generally, Eyes - Sclerae nonicteric. Conjunctivae clear, ENMT - Mouth is dry. There are no lesions noted in the oral cavity, Hematologic/Lymphatic - No cervical, clavicular, or axillary adenopathy, Respiratory - Lungs sound clear with diminished air movement bilaterally, Cardiovascular - Heart rhythm is regular. There is no murmur, gallop, or rub noted, Abdomen - Soft. Liver and spleen are not enlarged. There is no abdominal mass or ascites noted and there is no inguinal adenopathy, Extremities - No edema. She has scattered purpuric lesions, Neurologic - No focal neurologic deficits noted. Lab/Imaging: Test performed on Jun 14, 2021 14:20 Sodium 140 mmol/L Potassium 4.0 mmol/L Chloride 102 mmol/L CO2 29 mmol/L Anion Gap 13.0 BUN 10 mg/dL Creatinine 0.5 mg/dL Cr Clearance (Est) 86.59 mL/min Glucose 82 mg/dL Osmolality - Calculated 288 mOsm/kg Calcium 9.1 mg/dL Protein, Total 7.4 g/dL Albumin 3.9 g/dL Globulin 3.5 g/dL Bilirubin, Total 0.3 mg/dL ALT (SGPT) 7 U/L AST (SGOT) 16 U/L Alkaline Phosphatase 87 IU/L WBC 8.5 10 3/uL RBC 5.66 10 6/uL HGB 16.3 g/dL HCT 50.7 % MCV 89.6 fl MCH 28.8 pg MCHC 32.1 g/dL RDW 14.6 % Platelet Count 282 10 3/cmm MPV 9.1 fL Neutrophils 4.99 10 3/uL Lymphocytes 2.5 10 3/uL Monocytes 0.8 10 3/uL Eosinophils 0.2 10 3/uL Basophils 0.0 10 3/uL Neutrophil % 58.5 % Lymphocyte % 28.7 % Monocyte % 9.3 % Eosinophil % 2.8 % Basophils % 0.5 % NRBC % 0 % Problem List: 1. Poorly differentiated squamous cell carcinoma involving the upper lobe of the right lung. By clinical evaluation her disease appeared to be stage IIB (T3, N0, M0), as her PET/CT was suspicious for a separate tumor nodule within the same lobe. 2. 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 She underwent laparoscopic sigmoid colectomy on 12/24/2017. 3. COPD. 4. Hypertension. 5. Hyperlipidemia. 6. GERD. 7. Fibromyalgia. 8. Nicotine dependence (cigarettes). Problems Addressed with this Encounter and Plan: 1. 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 By clinical evaluation her disease appeared to be stage IIB (T3, N0, M0), as her PET/CT was suspicious for a separate tumor nodule within the same lobe. On 09/08/2017 she began radiation concurrently with weekly carboplatin/Taxol chemotherapy. She completed radiation on 10/24/2017 to a total dose of 6300 cGy. She was given a total of 6 weekly infusions of carboplatin/Taxol. She had significant fatigue during the treatment, but she otherwise tolerated it pretty well. Her restaging CT scans on 12/04/2017 showed a decrease in the right upper lobe lung mass, but there was still significant residual mass in that area and there were persistent fibrotic changes in the right hilar area on her follow-up CT scans. In May 2018 she had presented with increasing pain in the mid back. The symptoms were suspicious for metastatic involvement, but there was no evidence for metastatic involvement in the bone by CT or bone scan. She declined to have an MRI. Her chest CT that time showed no progression of the lung cancer. Her restaging PET/CT on 10/03/2018 showed findings which were felt to be consistent with disease recurrence in the medial right upper lobe as well as progression of malignant mediastinal adenopathy. Her repeat chest CT in January 2019 also showed findings which were felt to be suspicious for disease progression in the right upper lobe, but her restaging PET/CT on 04/17/2019 showed stable findings with no evidence of disease progression. During follow-up she has continued to have fatigue and limited activity tolerance. She has some chronic shortness of breath and cough, and she also has had some chronic pain. Thus far there has been no evidence of progression of the lung cancer by follow-up CT scan. At this point I am going to have her try going back on a low-dose of steroid with prednisone 10 mg daily. I will also see if I can get her set up for an overnight oxygen oximetry study. She will have further evaluation as indicated. I will tentatively plan a follow-up visit in 3 months. 2. 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 She underwent laparoscopic sigmoid colectomy on 12/24/2017. She has been followed expectantly with no evidence of recurrence. Signed By: Giacomo Iqbal M.D. <<Signature on File>>
== END 2021-07-26 08:52 | disposition home or self-care (01) ==
LOC: ONCMED 08:55
PROVIDERS: PCP Internal Medicine; Visit Provider Internal Medicine Medical Oncology
DX: C34.11 Malignant neoplasm of upper lobe, right bronchus or lung (principal); C18.7 Malignant neoplasm of sigmoid colon; Z90.49 Acquired absence of other specified parts of digestive tract; J44.9 Chronic obstructive pulmonary disease, unspecified; I10 Essential (primary) hypertension; E78.5 Hyperlipidemia, unspecified; K21.9 Gastro-esophageal reflux disease without esophagitis; M79.7 Fibromyalgia; F17.210 Nicotine dependence, cigarettes, uncomplicated; Z79.52 Long term (current) use of systemic steroids
CPT/HCPCS: 99214

== ENCOUNTER 2021-08-23 11:00 | Outpatient (CLI) | payer MEDICARE, MEDICAID, SELFPAY | END 2021-08-23 11:01 | disposition home or self-care (01) | LOC: SLEEP 08-27 08:48 | PROVIDERS: PCP Internal Medicine; Visit Provider Internal Medicine Medical Oncology | DX: R06.00 Dyspnea, unspecified (principal); R05.9 Cough, unspecified; C34.90 Malignant neoplasm of unspecified part of unspecified bronchus or lung | CPT/HCPCS: 94762 ==

== ENCOUNTER 2021-08-30 11:59 | Emergency (ER) | payer MEDICARE, MEDICAID, SELFPAY ==
[2021-08-30 12:09] VITALS: BP 111/61; PULSE 90; TEMP 36.8; O2SAT 85; BMI 23.0
--- NOTE | 2021-08-30 12:21 | XR_ITS ---
WS: [id number] Portable AP upright chest, 08/30/2021 Clinical Data: covid? Comparison: Portable chest, 07/18/2019. Findings: No nodules, masses or effusions are seen. The heart is normal. The aortic arch shows minima l calcification. The pulmonary vascularity is not increased. No pneumonia or pneumothorax is seen. Th e diaphragms are flattened and there is bilateral pleural reaction at the costophrenic angles. XR/XR chest 1V portable [id number] Impression: Atherosclerosis and hyperinflation.
--- NOTE | 2021-08-30 12:21 | CT_ITS ---
WS: [id number] CTA OF THE CHEST WITH PULMONARY EMBOLISM PROTOCOL TECHNIQUE: High-resolution contrast enhanced CTA of the chest with coronal and sagittal reformatted i mages with pulmonary embolism protocol. MIP images are also reviewed. CLINICAL INFORMATION: eval for pe, covid and cancer COMPARISON: July 02, 2021 DLP: 554.[address] scans at [facility] use at least one of these dose optimization techniques: automated e xposure control; mA and/or kV adjustment per patient size (includes targeted exams where dose is matc hed to clinical indication); or iterative reconstruction. FINDINGS: Stable RIGHT lower lobe pulmonary nodule measuring 8 mm. Additional pulmonary nodule superior segment RIGHT lower lobe laterally measuring 5 mm also unchanged. Spiculated nodule in the RIGHT supra hilum measuring 11 mm is stable since July 02, 2021 but appears slightly increased since 12/18/2020 and 06/16/2020. Increased soft tissue in the RIGHT upper lobe medially measuring 2.6 x 1.2 cm also unchanged. Tiny no dule in the RIGHT upper lobe measuring 4 mm. Subsegmental atelectasis LEFT lower lobe. Soft tissue th ickening along the RIGHT hilum with bronchovascular thickening. Slightly ectatic ascending thoracic aorta measuring 3.7 mm unchanged. Proximal main pulmonary arterie s are normal. Normal segmental and subsegmental pulmonary arteries. No evidence of pulmonary embolus. Adrenal glands are normal. Partially visualized bilateral renal cysts. Celiac and SMA are patent prox imally. Stable small LEFT adrenal nodule. Small esophageal hiatal hernia. CT/CT angio chest PE protcl [id number] IMPRESSION: 1. Proximal main pulmonary arteries are normal. No evidence of pulmonary embol us. 2. Moderate chronic emphysematous changes. No acute pulmonary infiltrates. Sub segmental atelectasis LEFT lower lobe. 3. RIGHT hilar bronchovascular thickening with soft tissue thickening in the R IGHT supra hilum and RIGHT upper lobe medially measures 2.6 x 1.2 cm unchanged. 4. Several subcentimeter pulmonary nodules are stable. Notable 8 millimeter no dule RIGHT lower lobe posteriorly is stable. 5. Slowly increasing spiculated nodule in the RIGHT upper hilum measuring 11 m m. Recommend 3 month interval follow-up with contrast-enhanced chest CT. 6. No other significant changes compared to previous.
--- NOTE | 2021-08-30 12:22 | ECG_ITS ---
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 Measurements Intervals Wheeler Rate: 82 P: 77 NV: 148 QRS: -59 QRSD: 129 T: 70 QT: 377 QTc: 443 Interpretive Statements SINUS RHYTHM POSSIBLE RIGHT ATRIAL ENLARGEMENT [0.25mV P-WAVE] INDETERMINATE AXIS RIGHT BUNDLE BRANCH BLOCK [120+ ms QRS DURATION, UPRIGHT V1, 40+ ms S IN I/aVL/V4/V5/V6] LEFT ANTERIOR FASCICULAR BLOCK [QRS AXIS <= -45, QR IN I, RS IN II] Compared to ECG 10/10/2017 11:58:10 Sinus tachycardia no longer present Electronically Signed On 08-30-2021 20:47:47 [employer] by Marin Matthews M.D. [id number]
--- NOTE | 2021-08-30 12:56 | ED_ITS ---
HPI - General Adult General: Chief complaint: COVID symptoms Stated complaint: not feeling well hurts all over Time Seen by Provider: 08/30/21 12:21 History of Present Illness: CC: Shortness of breath, fever and generalized weakness HPI: This is a 81 yo patient w/ hx of colon/lung cancer in remission presenting to the ED with malaise, generalized weakness, body ache, and fever at home x 1 week.Since onset of symptoms, has had some shortness of breath and decreased PO intake. NO recent travel. Endorses no sick contacts around. Denies nausea/vomiting/diarrhea. Denies chest pain, diaphoresis, other GI or complaints. Denies any pleuritic chest pain, recent surgery/immobilizat ion/travel, or hematemesis or hx of VTE in the past. Onset: 1 week ago Duration: ongoing for the last 7 days Location: home Severity: moderate Associated symptoms: Reports dyspnea; Deny chest pain, nausea, rash, palpitations or vomiting Review of Systems Const: Reports: chills, body aches, fatigue and other (+generalized body ache); Denies: fever(s) Eyes: Denies: change in vision ENMT: Denies: mouth pain Card: Denies: chest pain or palpitations Resp: Reports: dyspnea and non-productive cough GI: Denies: abdominal pain, nausea, vomiting or diarrhea : Denies: dysuria Musc: Denies: extremity pain Skin/Breast: Denies: rash or new lesions Neuro: Denies: weakness in extremities Psych: Reports: other (Normal mood) Maxime/Lymph: Denies: easy bruising PFS ED PFSH: Medical History (Updated 08/30/21 @ 15:59 by Negra Canada MD) Colon cancer Lung cancer Social History (Updated 08/30/21 @ 12:59 by Negra Canada MD) Smoking and tobacco status: current every day smoker Alcohol intake: never Substance/Drug Use: never Physical Exam Const: COMMON NORMALS: alert HENMT: COMMON NORMALS: atraumatic HEAD & SCALP: atraumatic MOUTH: moist mucous membranes not abnormal Eye: COMMON NORMALS: EOMs intact bilaterally and conjunctivae normal CONJUNCTIVA: Yes conjunctivae normal Neck/C-Spine: COMMON NORMALS: full ROM and supple Resp: COMMON NORMALS: normal respiratory effort OTHER: +mild decreased breath sounds /bl Cardio: COMMON NORMALS: regular rate RATE: regular rate GI: COMMON NORMALS: Soft to palpation and non-tender PALPATION: Yes Soft to palpation Extremity: COMMON NORMALS: full ROM Neuro: SENSORIUM/ORIENTATION: Yes alert MOTOR EXAM: No Abnormal motor stren gth present and Other motor observations present (no focal motor deficits) Psych: COMMON NORMALS: speech normal SPEECH: Yes normal speech MOOD & AFFECT: Yes euthymic mood Course Vital Signs: Vital signs: Vital Signs Temperature 98.4 F 08/30/21 15:04 Pulse Rate 84 08/30/21 15:04 Respiratory Rate 22 H 08/30/21 15:04 Blood Pressure 145/64 08/30/21 15:04 Pulse Oximetry 95 08/30/21 15:04 MDM - General Adult Medical Decision Making [81]yo patient w/ hx of colon cancer and lung cancer currently off of chemotherapy presenting to the ED with shortness of breath, cough, malaise and generalized weakness x 1 week. Will evaluate for COVID, PNA, PE, COPD exacerbation, Pneumothorax, TB, Atypical ACS, Esophageal Rupture, Toxic Exposure, Foreign Body Airway Obstruction. Workup: CXR, labs, CTA chest Intervention: Tylenol, GI cocktail, PO challenge, serial reassessment, oxygen, decadron [4:00pm] On reassessment, Imaging studies negative for covid or PE. Findings consistent with COVID. Afebrile currently. Patient continues to sat at 95% on 2L oxygen. Given concerns for possible respiratory decompensation, I have offered patient admission for serial/close observation in the emergency room. At [4:05pm], patient declined admission citing strong desire to go home on home oxygen. I have discussed the risks of leaving hospital today including risks of sudden pulmonary decompensation leading to severe respiratory distress and even . Patient verbalizes understanding the consequence of the risks of leaving the hospital today and alternative including staying for serial observation. Given patient's strong desire to go home, I have offered patient outpatient oxy gen tank/supply and portable pulse ox with proper instruction to use at home. Patient agrees to monitor oxygen saturation and to come back to the ED if there is any drops in pulse ox reading despite oxygen use. In addition, I have given patient strict follow up with PCP in 48-72 hrs for reevaluation. Patient verbalizes understanding of all components of our discussion today and reassures me of follow up with PCP and close monitoring. Incidental findings of lung nodules discussed extensively with patient. Patient received a copy of the CT report with the documented findings. Patient is instru cted to follow up urgently with a cafeteria cook. I have given patient follow up with our case advocate to be seen by our outpatient PCP for reassessment of covid symptoms on oxygen and to be seen by pulmologist for nodules. Patient aware of a call from our case advocate to schedule for appointment(s) and verbalizes understanding of the importance of following up. I have given patient strict return precaution for any drops in the pulse ox to less than 88% while on oxygen. Disposition: Discharge. Patient is given strict return precautions for any worsening dypsnea, changes in pulse ox numbers, any worsening fatigue, dehydration, generalized weakness, altered mental status, or any new or con cerning issues. Lab Data : 08/30/21 13:15 08/30/21 13:15 Radiology Impressions Chest CTA 08/30/21 12:21 IMPRESSION: 1. Proximal main pulmonary arteries are normal. No evidence of pulmonary embolus. 2. Moderate chronic emphysematous changes. No acute pulmonary infiltrates. Subsegmental atelectasis LEFT lower lobe. 3. RIGHT hilar bronchovascular thickening with soft tissue thickening in the RIGHT supra hilum and RIGHT upper lobe medially measures 2.6 x 1.2 cm unchanged. 4. Several subcentimeter pulmonary nodules are stable. Notable 8 millimeter nodule RIGHT lower lobe posteriorly is stable. 5. Slowly increasing spiculated nodule in the RIGHT upper hilum measuring 11 mm. Recommend 3 month interval follow-up with contrast-enhanced chest CT. 6. No other significant changes compared to previous. Chest X-Ray 08/30/21 12:21 Impression: Atherosclerosis and hyperinflation. Laboratory Results WBC 7.2 10^3/uL (4.0-10.0) 08/30/21 13:15 RBC 5.90 10^6/uL (4.1-5.3) H 08/30/21 13:15 Hgb 16.7 g/dL (11.5-15.3) H 08/30/21 13:15 Hct 52.8 % (37.0-47.0) H 08/30/21 13:15 MCV 89.5 fl (81-99) 08/30/21 13:15 MCH 28.3 pg (28.0-34.0) 08/30/21 13:15 MCHC 31.6 g/dL (30.0-36.0) 08/30/21 13:15 RDW 14.0 % (12.1-15.1) 08/30/21 13:15 Plt Count 234 10^3/cmm (130-400) 08/30/21 13:15 MPV 9.6 fL (7.4-10.4) 08/30/21 13:15 Neut % (Auto) 67.7 % 08/30/21 13:15 Lymph % (Auto) 20.5 % 08/30/21 13:15 Pettis % (Auto) 10.0 % 08/30/21 13:15 Eos % (Auto) 1.1 % 08/30/21 13:15 Baso % (Auto) 0.4 % 08/30/21 13:15 Neut # (Auto) 4.90 10^3/uL (1.8-7.7) 08/30/21 13:15 Lymph # (Auto) 1.5 10^3/uL (0.8-4.8) 08/30/21 13:15 Pettis # (Auto) 0.7 10^3/uL (0.2-0.9) 08/30/21 13:15 Eos # (Auto) 0.1 10^3/uL (0.0-0.8) 08/30/21 13:15 Baso # (Auto) 0.0 10^3/uL (0.0-0.1) 08/30/21 13:15 Nucleated RBC % (auto) 0 % 08/30/21 13:15 Nucleated RBCs # 0.0 /100WBC 08/30/21 13:15 Sodium 137 mmol/L (136-145) 08/30/21 13:15 Potassium 4.4 mmol/L (3.5-5.1) 08/30/21 13:15 Chloride 98 mmol/L (98-107) 08/30/21 13:15 Carbon Dioxide 31 mmol/L (22-29) H 08/30/21 13:15 Anion Gap 12.4 (5-19) 08/30/21 13:15 BUN 10 mg/dL (8-23) 08/30/21 13:15 Creatinine 0.5 mg/dL (0.5-0.9) 08/30/21 13:15 GFR Calculation Not Reportable 08/30/21 13:15 Glucose 81 mg/dL (65-115) 08/30/21 13:15 Calculated Osmolality 282 mOsm/kg (285-295) L 08/30/21 13:15 Calcium 9.5 mg/dL (8.5-10.5) 08/30/21 13:15 Total Bilirubin 0.3 mg/dL (0.15-1.2) 08/30/21 13:15 AST 12 U/L (0-32) 08/30/21 13:15 ALT 9 U/L (0-33) 08/30/21 13:15 Alkaline Phosphatase 62 IU/L (35-105) 08/30/21 13:15 Troponin T Baseline 14 ng/L (0-10) H 08/30/21 13:15 NT-Pro-B Natriuret Pep 318 pg/mL (0-450) 08/30/21 13:15 Total Protein 7.4 g/dL (6.6-8.7) 08/30/21 13:15 Albumin 3.8 g/dL (3.5-5.2) 08/30/21 13:15 Globulin 3.6 g/dL (1.3-4.6) 08/30/21 13:15 Lipase 28 U/L (13-60) 08/30/21 13:15 Coronavirus 229E (PCR) Not detected (NOT DETECT) 08/30/21 13:15 SARS-CoV-2 (PCR) Detected (NOT DETECT) A 08/30/21 13:15 Imaging Data Other Imaging: Radiologist's impression: [address] [address] XRay Report Signed Patient: Giovanna Gottlieb Unit #: [id number] : 1940 Age/Sex: 81 / F ADM Date: 08/30/21 Loc: ER Room/Bed: Attending Dr: Ordering Provider/Ordering MD: Negra Canada MD Date of Service: 08/30/21 Procedure(s): XR chest 1V portable [id number] Accession Number(s): [id number] Report Number: [id number] WS: [id number] Portable AP upright chest, 08/30/2021 Clinical Data: covid? Comparison: Portable chest, 07/18/2019. Findings: No nodules, masses or effusions are seen. The heart is normal. The aortic arch shows minimal calcification. The pulmonary vascularity is not increased. No pneumonia or pneumothorax is seen. The diaphragms are flattened and there is bilateral pleural reaction at the costophrenic angles. XR/XR chest 1V portable [id number] Impression: Atherosclerosis and hyperinflation. ? Dictated By: Kaitlin Parker MD Signed By: Kaitlin Parker MD Signed Date/Time: 08/30/21 1306 DD/ [address] [address] [address] Scan Report Signed Patient: Giovanna Gottlieb Unit #: [id number] : 1940 Age/Sex: 81 / F ADM Date: 08/30/21 Loc: ER Room/Bed: Attending Dr: Ordering Provider/Ordering MD: Negra Canada MD Date of Service: 08/30/21 Procedure(s): CT angio chest PE protcl [id number] Accession Number(s): [id number] Report Number: [id number] WS: [id number] CTA OF THE CHEST WITH PULMONARY EMBOLISM PROTOCOL TECHNIQUE: High-resolution contrast enhanced CTA of the chest with coronal and sagittal reformatted images with pulmonary embolism protocol. MIP images are also reviewed. CLINICAL INFORMATION: eval for pe, covid and cancer COMPARISON: July 02, 2021 DLP: 554.[address] scans at [facility] use at least one of these dose optimization techniques: automated exposure control; mA and/or kV adjustment per patient size (includes targeted exams where dose is matched to clinical indication); or iterative reconstruction. FINDINGS: Stable RIGHT lower lobe pulmonary nodule measuring 8 mm. Additional pulmonary nodule superior segment RIGHT lower lobe laterally measuring 5 mm also unchanged. Spiculated nodule in the RIGHT supra hilum measuring 11 mm is stable since July 02, 2021 but appears slightly increased since 12/18/2020 and 06/16/2020. Increased soft tissue in the RIGHT upper lobe medially measuring 2.6 x 1.2 cm also unchanged. Tiny nodule in the RIGHT upper lobe measuring 4 mm. Subsegmental atelectasis LEFT lower lobe. Soft tissue thickening along the RIGHT hilum with bronchovascular thickening. Slightly ectatic ascending thoracic aorta measuring 3.7 mm unchanged. Proximal main pulmonary arteries are normal. Normal segmental and subsegmental pulmonary arteries. No evidence of pulmonary embolus. Adrenal glands are normal. Partially visualized bilateral renal cysts. Celiac and SMA are patent proximally. Stable small LEFT adrenal nodule. Small esophageal hiatal hernia. CT/CT angio chest PE protcl [id number] IMPRESSION: ? 1.? Proximal main pulmonary arteries are normal. No evidence of pulmonary embolus. 2.? Moderate chronic emphysematous changes. No acute pulmonary infiltrates. Subsegmental atelectasis LEFT lower lobe. 3.? RIGHT hilar bronchovascular thickening with soft tissue thickening in the RIGHT supra hilum and RIGHT upper lobe medially measures 2.6 x 1.2 cm unchanged. 4.? Several subcentimeter pulmonary nodules are stable. Notable 8 millimeter nodule RIGHT lower lobe posteriorly is stable. 5.? Slowly increasing spiculated nodule in the RIGHT upper hilum measuring 11 mm. Recommend 3 month interval follow-up with contrast-enhanced chest CT. 6.? No other significant changes compared to previous. ? Dictated By: Serafin Cervantes MD Signed By: Serafin Cervantes MD Signed Date/Time: 08/30/21 1502 DD/ 1433 Discharge Plan Discharge Patient Disposition: Home Clinical Impression: Acute dyspnea, Generalized body aches, Chill, COVID Condition: Stable Prescriptions: New Zofran 4 mg tablet 4 mg PO TID PRN (Reason: nausea and vomiting) 4 Days Qty: 12 0RF Pepcid 20 mg tablet 20 mg PO BID PRN (Reason: abdominal pain) 10 Days Qty: 20 0RF albuterol sulfate 90 mcg/actuation HFA aerosol inhaler 2 inh inhalation Q4H PRN (Reason: shortness of breath or wheezing) 5 Days Q ty: 6.7 0RF Maalox Advanced 1,000-60 mg tablet,chewable 1 tab PO TID PRN (Reason: abdominal pain) 7 Days Qty: 21 0RF No Action gabapentin 300 mg capsule 300 mg PO BID 0RF omeprazole 40 mg capsule,delayed release(DR/EC) 40 mg PO DAILY 0RF aspirin [Aspirin Low Dose] 81 mg Tablet,Delayed Release (Dr/Ec) 81 mg PO DAILY 0RF trazodone 50 mg tablet 50 mg PO BEDTIME 0RF pravastatin 40 mg tablet 40 mg PO DAILY 0RF alprazolam 0.25 mg tablet 0.25 mg PO BEDTIME 0RF Wixela Inhub 250-50 mcg/dose blister with device 1 inh INHALATION BID 0RF prednisone 10 mg tablet 10 mg PO DAILY 0RF paroxetine HCl 20 mg tablet 20 mg PO DAILY 0RF albuterol sulfate 90 mcg/actuation HFA aerosol inhaler 2 puff INHALATION Q6H PRN (Reason: Shortness Of Breath) 0RF magnesium 30 mg Tablet 30 mg PO DAILY 0RF ProAir RespiClick 90 mcg/actuation aerosol powdr breath activated 90 mcg INHALATION Q4H PRN (Reason: Shortness Of Breath) 0RF Discharge Orders: Discharge ED (Routine); Ordered 08/30/21 Ordered By: Negra Canada Other Ambulatory Orders: DME: Oxygen (Order) Location: None Selected Ordered By: Negra Canada Referrals: Delaney Crowell MD [Primary Care Provider] - Discharge Diet: Advance as tolerated Discharge Activity: Increase activity as tolerated Patient Instructions: COVID-19 (Coronavirus Disease 2019) (ED) Activity Restrictions/Additional Instructions: Come back to the emergency room if your symptoms worsen, have any shortness of breath, fever/chills, dehydration, inability tolerate food or drinks, any difficulty breathing, or any new or concerning complaints. Please return the emergency room if your pulse ox reads less than 88%. Our case advocate will have you follow-up with a primary care provider in the next few days. You would be expected to have a phone call with our case advocate who will put you on the schedule. You can expect a call from us in the next 2-3 days. Coding Level of Care Code ED Vessel Traffic Officer for Betsy Hernandez Exam Comprehensive
[2021-08-30 13:26] VITALS: O2SAT 87; O2SAT 94
[2021-08-30 13:39] LABS: Basophils % 0.4 %; Eosinophils # 0.1 10^3/uL (0.0-0.8); Eosinophils % 1.1 %; Hematocrit 52.8 % (37.0-47.0); Hemoglobin 16.7 g/dL (11.5-15.3); Lymphocytes # 1.5 10^3/uL (0.8-4.8); Lymphocytes % 20.5 %; Mean Corpuscular HGB Conc 31.6 g/dL (30.0-36.0); Mean Corpuscular Hemoglobin 28.3 pg (28.0-34.0); Mean Corpuscular Volume 89.5 fl (81-99); Mean Platelet Volume 9.6 fL (7.4-10.4); Monocytes # 0.7 10^3/uL (0.2-0.9); Neutrophils % 67.7 %; Nucleated Red Blood Cells % 0 %; Platelet Count 234 10^3/cmm (130-400); White Blood Count 7.2 10^3/uL (4.0-10.0)
[2021-08-30 13:54] LABS: Troponin(5th) Baseline 14 ng/L (0-10)
[2021-08-30 14:02] LABS: Alanine Aminotransferase 9 U/L (0-33); Albumin Level 3.8 g/dL (3.5-5.2); Alkaline Phosphatase 62 IU/L (35-105); Anion Gap 12.4 (5-19); Aspartate Amino Transferase 12 U/L (0-32); Blood Urea Nitrogen 10 mg/dL (8-23); Calcium 9.5 mg/dL (8.5-10.5); Carbon Dioxide 31 mmol/L (22-29); Chloride 98 mmol/L (98-107); Creatinine Clr Calc Pharmacy 49.5337; Globulin 3.6 g/dL (1.3-4.6); Glucose 81 mg/dL (65-115); Lipase 28 U/L (13-60); NT Pro B Type Natriuretic Pept 318 pg/mL (0-450); Osmolality Calculated 282 mOsm/kg (285-295); Potassium 4.4 mmol/L (3.5-5.1); Sodium 137 mmol/L (136-145); Total Bilirubin 0.3 mg/dL (0.15-1.2); Total Protein 7.4 g/dL (6.6-8.7)
[2021-08-30] MEDS: iohexol 350 mg/mL 100 mL Btl IV (14:28)
[2021-08-30] MEDS: acetaminophen 500 mg Tablet PO (15:01)
[2021-08-30] MEDS: sodium chloride 0.9% 500 ML IV (15:01)
[2021-08-30] MEDS: lidocaine 2% viscous 15 ML, aluminum-mag hydrox-simethicon 30 ML, sucralfate oral liq 1 GM PO (15:02)
[2021-08-30 15:04] VITALS: BP 145/64; PULSE 84; RESP 22; TEMP 36.9; O2SAT 95
[2021-08-30 15:29] LABS: Adenovirus Not Detected (NOT DETECT); Chlamydia Pneumoniae Not Detected (NOT DETECT); Coronavirus 229E,HKU1,NL63,OC4 Not Detected (NOT DETECT); Human Metapneumovirus Not Detected (NOT DETECT); Human Rhinovirus/Enterovirus Not Detected (NOT DETECT); Influenza A Not Detected (NOT DETECT); Influenza A H1 Not Detected (NOT DETECT); Influenza A H1-2009 Not Detected (NOT DETECT); Influenza A H3 Not Detected (NOT DETECT); Influenza B Not Detected (NOT DETECT); Mycoplasma Pneumoniae Not Detected (NOT DETECT); Parainfluenza Virus Type 1 Not Detected (NOT DETECT); Parainfluenza Virus Type 2 Not Detected (NOT DETECT); Parainfluenza Virus Type 3 Not Detected (NOT DETECT); Parainfluenza Virus Type 4 Not Detected (NOT DETECT); Respiratory Syncytial Virus A Not Detected (NOT DETECT); Respiratory Syncytial Virus B Not Detected (NOT DETECT); SARS-COV-2 Detected (NOT DETECT)
[2021-08-30 16:22] VITALS: BP 134/64; PULSE 79; RESP 23; TEMP 36.9; O2SAT 92; O2SAT 93
[2021-08-30 16:52] VITALS: PULSE 88; RESP 20; O2SAT 90
--- NOTE | 2021-08-31 09:58 | PC.NURSE ---
Left voice mail to return call the ER.
--- NOTE | 2021-08-31 11:32 | DCPLANNER ---
Addendum entered by Serenity Koch 10/05/21 12:46: Patient had a follow up appointment scheduled for 10.01.21 at [facility] - patient did attend appointment. Addendum entered by Serenity Koch 09/07/21 11:13: Patients appointment scheduled for 09.05.21 was rescheduled for Friday, October 01, 2021 at 11:[address] Dowd. Original Note: biofuels production manager had message to schedule a follow up appointment for patient with [facility], pulmonology. biofuels production manager called [facility], spoke with Roxane, gave clinic patients information. A follow up appointment was scheduled for Sunday, September 05, 2021 at 11:[address] Dowd. biofuels production manager called, spoke with patients son, case resource manager was told that patient was COVID positive. Patients son, will call [facility], to reschedule appointment, due to being COVID positive. Patients son also stated that he would call patients primary care physician to schedule an appointment.
== END 2021-08-30 16:50 | disposition home or self-care (01) ==
PROVIDERS: Emergency Provider Emergency Medicine; PCP Internal Medicine
DX: U07.1 COVID-19 (principal); Z79.82 Long term (current) use of aspirin; Z85.038 Personal history of other malignant neoplasm of large intestine; Z85.118 Personal history of other malignant neoplasm of bronchus and lung; F17.210 Nicotine dependence, cigarettes, uncomplicated
CPT/HCPCS: 71045; 71275; 80053; 83690; 83880; 84484; 85025; 87635; 93005; 96360; 99284; J7040; Q9967

== ENCOUNTER 2021-10-18 09:44 | Outpatient (CLI) | payer MEDICARE, MEDICAID, SELFPAY ==
--- NOTE | 2021-10-18 10:02 | CT_ITS ---
WS: [id number] CT CHEST ANGIOGRAPHY WITH REFORMATS HISTORY: DECREASED OXYGEN LEVELS, history of lung cancer. TECHNIQUE: Contiguous axial images are obtained through the chest during arterial injection of intrav enous contrast. Images are reconstructed to evaluate the pulmonary arteries. MIP imaging also reviewe d. All CT scans at [facility] use at least one of these dose optimization techniques: automat ed exposure control; mA and/or kV adjustment per patient size (includes targeted exams where dose is matched to clinical indication); or iterative reconstruction. CONTRAST: Omnipaque 350; 95 mL IV. DLP: 568.76 mGy.cm COMPARISON: 08/30/2021, 07/02/2021 Good opacification of the pulmonary arteries. No filling defects are identified. Normal size pulmonar y artery. Moderate atherosclerotic changes within the thoracic aorta. Mild ectasia the 3.7 cm of the ascending aorta. No dissection or aneurysm. Heart size is slightly enlarged. No pericardial or pleura l effusions. Chronic emphysematous changes throughout both lungs. Scarring and fibrosis at the lung apices. Curvil inear soft tissue along the medial RIGHT upper lung is again identified measuring 3.8 x 1.7 cm. May h ave slightly increased in size. Very mild increase in size of the slightly spiculated nodule partiall y encasing the proximal RIGHT upper lobe artery and bronchus. This nodule is slightly spiculated now measuring 12 x 10 mm. There is mild postobstructive atelectasis in the RIGHT upper lobe. Stable 5 mm nodule RIGHT upper lobe. Slightly increased size of a solid, noncalcified nodule RIGHT lower lobe tabatha suring 10 x 10 mm. Subsegmental atelectasis at the lingula. Numerous, indeterminate mediastinal and hilar lymph nodes. Lymph node at the RIGHT hilum measures 12 mm without increase in size. There is additional mild peribronchial thickening and cuffing at the hil ar regions extending along the proximal RIGHT upper and RIGHT lower lobe bronchovascular structures. Similar to the prior study. No significant hiatal hernia. Visualized liver is normal. No acute findings in the upper abdomen. Mil d thickening of the LEFT adrenal gland. Normal RIGHT adrenal gland. No osteoblastic or osteolytic bone disease. CT/CT angio chest PE protcl [id number] IMPRESSION: 1. No pulmonary embolism. No pneumonia. 2. Very slight continued increase in size of a RIGHT upper lobe and RIGHT lowe r lobe pulmonary nodules. Concerning for progression of metastatic disease. 3. Curvilinear soft tissue in the medial RIGHT upper lobe with slight increase in size. May be chronic atelectasis. 4. Numerous but indeterminate mediastinal and hilar lymph nodes. 5. Moderate bilateral bronchovascular soft tissue thickening is stable. 6. No metastatic lesions within the liver or adrenal glands.
[2021-10-18] MEDS: iohexol 350 mg/mL 100 mL Btl IV (10:46)
== END 2021-10-18 09:45 | disposition home or self-care (01) ==
LOC: RAD 09:48
PROVIDERS: PCP Internal Medicine; Visit Provider Internal Medicine Medical Oncology
DX: R09.02 Hypoxemia (principal); Z85.118 Personal history of other malignant neoplasm of bronchus and lung
CPT/HCPCS: 71275

== ENCOUNTER 2021-10-24 09:51 | Outpatient (CLI) | payer MEDICARE, MEDICAID, SELFPAY ==
[2021-10-24 10:12] LABS: Basophils # 0.1 10^3/uL (0.0-0.1); Basophils % 0.6 %; Eosinophils # 0.3 10^3/uL (0.0-0.8); Eosinophils % 3.4 %; Hematocrit 48.6 % (37.0-47.0); Hemoglobin 15.7 g/dL (11.5-15.3); Lymphocytes # 1.9 10^3/uL (0.8-4.8); Lymphocytes % 23.6 %; Mean Corpuscular HGB Conc 32.3 g/dL (30.0-36.0); Mean Corpuscular Hemoglobin 29.1 pg (28.0-34.0); Mean Platelet Volume 9.1 fL (7.4-10.4); Monocytes # 0.7 10^3/uL (0.2-0.9); Neutrophils # 5.13 10^3/uL (1.8-7.7); Nucleated Red Blood Cells % 0 %; Platelet Count 288 10^3/cmm (130-400); Red Cell Distribution Width 14.6 % (12.1-15.1); White Blood Count 8.1 10^3/uL (4.0-10.0)
[2021-10-24 10:47] LABS: Alanine Aminotransferase 8 U/L (0-33); Albumin Level 4.1 g/dL (3.5-5.2); Alkaline Phosphatase 85 IU/L (35-105); Anion Gap 12.3 (5-19); Aspartate Amino Transferase 14 U/L (0-32); Blood Urea Nitrogen 13 mg/dL (8-23); Calcium 10.3 mg/dL (8.5-10.5); Carbon Dioxide 31 mmol/L (22-29); Chloride 99 mmol/L (98-107); Globulin 3.5 g/dL (1.3-4.6); Glucose 98 mg/dL (65-115); Osmolality Calculated 286 mOsm/kg (285-295); Potassium 4.3 mmol/L (3.5-5.1); Sodium 138 mmol/L (136-145); Total Bilirubin 0.4 mg/dL (0.15-1.2); Total Protein 7.6 g/dL (6.6-8.7)
--- NOTE | 2021-10-28 08:55 | ONC FU_ITS ---
Dr. Ibqal Patient Follow-Up Note Patient: Giovanna Gottlieb Unit #: [id number]: 1940 Dicatated By: Giacomo Iqbal M.D.Date of Visit:Oct 24, 2021 Onc Med Follow-up/Prog Note Chief Complaint: Lung cancer. 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 By clinical evaluation her disease appeared to be stage IIB (T3, N0, M0). On 07/10/2017 she was admitted to the hospital with an acute COPD exacerbation in association with influenza A infection. Her chest CT at that time showed a mixed soft tissue attenuation mass in the right upper lobe extending anteriorly and superiorly to contact the superior mediastinum and anterior parietal pleura. The mass measured 7.6 x 3.2 x 6.1 cm. The pulmonary vasculature appeared attenuated within the mass and the bronchi appeared occluded. There was mildly prominent mediastinal and right hilar lymphadenopathy. A 7 mm pulmonary nodule was noted in the right anterior upper lobe. Reticular opacities in the right upper lobe were felt to possibly represent a superimposing infiltrate. She was discharged the following day. Further evaluation with PET/CT on 08/02/2017 showed a 4 cm of thickened lower sigmoid colon with SUV 9.4, consistent with malignancy. There were no sites of pathologic adenopathy or other metastatic disease below the diaphragm. The right upper lobe lung mass measured 4 x 3 cm with SUV 19.4, also consistent with malignancy. There was associated subtotal obstruction of the bronchus to the anterior segment right upper lobe with postobstructive pneumonitis. Also noted was a 1.7 cm pulmonary nodule in the base of the anterior segment right upper lobe with SUV 8.0. Increased FDG uptake throughout the bone marrow was felt to be nonspecific. It appeared accentuated in T11 and L2, suspicious for metastatic disease. Colonoscopy on 08/04/2017 showed multiple polyps including a 1 cm sessile polyp and 2 polyps measuring 5 mm in the cecum, a 5 mm sessile polyp in the ascending colon, 1 cm pedunculated polyp in 2 separate pedunculated polyps measuring 7 mm in the sigmoid colon, and a 7 mm pedunculated polyp within the rectum at 10 cm. All of these were removed endoscopically. Also noted was a large pedunculated polyp in the rectosigmoid area at about 20 cm. It measured 3-4 cm. The stalk could not be identified. It apparently was not removed. Biopsy, though, showed tubulovillous adenoma with low-grade dysplasia. It was reported to be completely excised, though I had assumed that to be inaccurate. The rectal polyp and one of the polyps in the cecum also showed tubulovillous adenoma. Another polyp within the cecum was hyperplastic and the polyp in the ascending colon was noted to be adenomatous. A smaller sigmoid polyp also was adenomatous. On 08/20/2017 she underwent bronchoscopy followed by mediastinoscopy with biopsies lymph nodes from station 4R and from the cervical pretracheal region. The bronchoscopy showed an endobronchial exophytic lesion at the orifice to the right upper lobe bronchus. Biopsy showed non-small cell carcinoma consistent with poorly differentiated squamous cell carcinoma. The lymph node biopsies were benign. On 09/08/2017 she began treatment with radiation concurrently with weekly carboplatin/chemotherapy. Her radiation was completed on 10/24/2017 to a total dose of 6300 cGy. She had received her 6th weekly infusion of carboplatin on 10/16/2017. She had significant fatigue during her treatment, but she otherwise tolerated it pretty well. Restaging CT scans of the chest, abdomen, and pelvis on 12/04/2017 showed interval decrease in the right upper lobe mass measuring 5.4 x 1.8 x 2.5 cm compared to 7.6 x 3.4 x 3.57 cm on the pretreatment study. There was also interval decreased mediastinal lymphadenopathy. A right lower lobe lateral costophrenic angle subpleural nodule appeared stable measuring 4-5 mm. On 12/24/2017 show underwent laparoscopic sigmoid colectomy with stapled EEA anastomosis. Grossly there was no evidence of metastatic involvement in the liver or peritoneal carcinomatosis. Pathology showed moderately differentiated adenocarcinoma arising within a villoglandular polyp. Tumor was noted to invade into the muscularis propria, but it was confined to the muscularis. It measured 3.5 x 2.5 x 2.5 cm. There was no involvement in 3 regional lymph nodes. Repeat chest CT on 03/06/2018 showed right upper lobe anterior medial soft tissue mass measuring 4.3 x 1.3 cm with slight further improvement compared to the study in November. Prominent precarinal, right hilar, and subcarinal lymph nodes appeared stable. Noncalcified subcentimeter nodules in the right upper lobe and at the right lung base appeared stable. Also noted were treatment related changes in the right upper lobe and right hilum. She had further evaluation with PET/CT on 03/28/2018. It showed decreased FDG uptake within the right upper lobe mass, consistent with response to therapy. A superior right hilar lymph node also showed decreased FDG uptake, SUV 6.7 compared to 21.8 on the pretreatment study. Small mediastinal nodes in the prevascular, precarinal, and subcarinal territories were FDG positive and unchanged from the prior study. She was referred to Dr. Easton for consideration of surgical resection. He felt that she would not be an appropriate candidate for surgery due to the suspected lymph node involvement and the need for a total pneumonectomy. I had seen her for a follow-up visit on 05/27/2018. At that point she was reporting significant pain in her back which had started just after her previous visit in February. X-ray of the thoracic spine was unremarkable. CT of the thoracic spine showed stable previous minor anterior superior compression fractures at T1, T2, T3, and T4. There was mild posterior disc bulging or shallow protrusion at the T8-T9, also without change. There was no evidence of a neoplastic process of the thoracic spine. Chest CT showed stable residual neoplastic mass lesion in the anterior segment right upper lobe and stable right upper and lower lobe pulmonary parenchymal nodules. Nonenlarged mediastinal lymph nodes also appeared stable. Further evaluation with bone scan on 06/15/2018 also showed no evidence of osseous metastatic disease. Given those findings, she continued on observation/expectant management. A restaging PET/CT on 10/03/2018 showed medial right upper lobe consolidation which was FDG positive and felt to be consistent with recurrent disease. Multiple mediastinal lymph nodes were also felt to have significantly progressed, indicative of active metastatic disease. There were additional areas of lymph node progression noted in the left hilum and in the prevascular and inferior right hilar territories. In October she had been seen in the emergency room with suspected TIA. Contrast-enhanced head CT at that time showed no acute intracranial abnormality. Repeat chest CT on 01/15/2019 showed slight increase in the with of the medial right upper lobe neoplasm, measuring 3.5 x 1.7 cm. There was slight increase in soft tissue thickening. An additional 6 mm nodule appeared stable and a right lower lobe 4 mm nodule appeared stable. There was slight increase in the size of lymph nodes in the precarinal area and at the hilum, but they were still subcentimeter. There were no other findings of disease progression. Her restaging PET/CT on 04/17/2019 showed mild activity in the medial right upper lobe consolidation, unchanged from prior studies. There was also no significant change in FDG positive lymph nodes, including a superior right hilar node with SUV 8.1 compared to 9.9 and a precarinal node with SUV 5.7 compared to 6.2. Multiple other nodes also demonstrated no significant change. There were no new areas of abnormal uptake. She was seen in the emergency room in July 2019 and diagnosed with pneumonia. She improved on outpatient therapy, but during subsequent follow-up, she continued to have limited activity tolerance and marginal performance status. Her chest CT on 08/02/2019 showed soft tissue neoplasm in the medial right upper lobe adjacent to the mediastinum measuring approximately 3.3 x 1.0 cm, slightly decreased in size compared to the 2 most recent studies. An adjacent satellite lymph node measuring 5 mm also appeared stable, and a prominent precarinal lymph node measuring 8 mm appeared stable. There was no progressed lymphadenopathy or other evidence of disease progression. Advanced emphysematous changes were noted. Her restaging chest CT on 11/09/2019 showed unchanged soft tissue neoplasm in the medial right upper lobe adjacent to the mediastinum measuring approximately 3.4 x 1.0 cm. An adjacent satellite nodule measuring 5 mm also appeared stable, as did a prominent precarinal lymph node measuring 8 mm. A small noncalcified nodule in the right lower lobe near the diaphragm measuring 4 mm appeared unchanged. A noncalcified nodule in the right upper lobe measuring 5.5 mm appeared to be new. Additional new nodules were noted in the right middle lobe measuring 4.7 and 4.8 mm. A hazy groundglass nodule in the right lower lobe appeared slightly more prominent measuring 3.8 mm. In the absence of any evidence of significant disease progression, she continued observation/symptomatic management. Her other medical illnesses include hypertension, hyperlipidemia, GERD, fibromyalgia, and COPD. She has additional history of cervical spondylosis with myelopathy. I had previously seen her in July 2015 in regard to leukocytosis, which appeared to be reactive. Her prior surgeries limited to NAE/BSO in 1978 and carpal tunnel release bilaterally in 1992. She has a history of smoking 1 pack of cigarettes daily in excess of 50 years. INTERIM HISTORY: Her chest CT on 06/16/2020 showed stable soft tissue neoplasm in the medial right upper lobe adjacent to the mediastinum measuring 3.4 x 1.0 cm. An adjacent satellite nodule measuring 5 mm also appeared unchanged. A previously described 8 mm nodule in the right middle lobe had decreased in size to 3 mm. Additional subcentimeter noncalcified nodules in the right lower lobe and right upper lobe also appeared unchanged. There was no progressed mediastinal or hilar lymphadenopathy. She continued observation/symptomatic management. She was seen in the emergency room on 09/03/2020 with back pain. Her lumbar spine CT showed shallow disc bulging at multiple levels, but with patent spinal canal and neural foramina and with no evidence of metastatic disease. Bone scan on 10/24/2020 showed no evidence for osseous metastatic disease. Her chest CT on 07/02/2021 showed stable appearance of the curvilinear soft tissue density seen along the medial aspect of the right upper lobe, thought to be most consistent with chronic subsegmental atelectasis and/or infiltrate. Subcentimeter nodules in the right lung also appeared stable. There was evidence for underlying pulmonary hyperinflation and emphysematous changes. Left adrenal nodule. Stable. Overall, there was no evidence of disease progression. With those findings, she continued expectant management. On 08/30/2021 she was seen in the emergency room with shortness of breath. There were no acute findings on her CT pulmonary angiogram. However, she did test positive for COVID 19 virus infection. She was adequately managed as an outpatient. A repeat CT pulmonary angiogram on 10/18/2021 showed no evidence of pulmonary embolism and there also was no evidence of pneumonia. There was a very slight continued increase in the size of the right upper lobe and right lower lobe pulmonary nodules, concerning for progression of metastatic disease. The curvilinear soft tissue in the medial right upper lobe also was noted to have slightly increased in size. Also noted were numerous but indeterminate mediastinal and hilar lymph nodes. Moderate bilateral bronchovascular soft tissue thickening appeared stable. There was no evidence of metastatic involvement in the liver or adrenal glands. She is seen for a follow-up visit. She indicates that she has continued to have trouble breathing since the COVID-19 virus infection in August. She also complains that she has constantly tired and that she has no energy. She is up and around, but not able to do any work now. ECOG score is 2. Her appetite is pretty good. She does not have fever or night sweats. She has had a runny nose, and she also reports having had oral thrush. She says it is getting better. She has cough productive of silva sputum. She is on continuous oxygen. She has not been having chest pain. She has no GI or complaints. She has no significant joint or bone pain. She does not complain of headache. She occasionally has lightheadedness. She has no numbness/paresthesia or other focal neurologic symptoms. Medications: Advair Diskus 1 Aerosol Powder, Breath Activated Inhalation b.i.d., Albuterol Sulfate (sensor) (108 (90 base) mcg/act) Aerosol Powder, Breath Activated Inhalation Take as Directed, ALPRAZolam 1 (0.25 mg) Tablet Oral PRN, Aspirin 1 (81 mg) Tablet Oral daily, Lyrica 1 Capsule (of 75 mg) Oral daily, Ocuvite Adult Formula 1 Capsule Oral daily, Omeprazole 1 Capsule (of 20 mg) Capsule Delayed Release Oral daily, PARoxetine HCl 1 Tablet (of 20 mg) Oral daily, Percocet 1 Tablet (of 7.5-325 mg) Oral PRN, Pravastatin Sodium 1 (40 mg) Tablet Oral daily, traZODone HCl 1 Tablet (of 50 mg) Oral at bedtime Allergies: Codeine Sulfate, Penicillins, Sulfa Antibiotics, and Vicodin. Vital Signs: Performed on Oct 24, 2021 11:35 Height - 63.00 in Weight - 131.4 lbs (LOW) BSA - 1.62 sq.m BMI - 23.28 Temperature - 97.7 F (LOW) Pulse - 92 /min Respiration - 16 /min BP - 124/69 mm(hg) O2 Sat - 92 % (LOW) Pain - 0 Fatigue - 6 Physical Examination: Constitutional - She appears somewhat frail generally, Eyes - Sclerae nonicteric. Conjunctivae clear, ENMT - No lesions noted in the oral cavity, Hematologic/Lymphatic - No cervical, clavicular, or axillary adenopathy, Respiratory - Lungs show diminished air movement bilaterally. There are few scattered rales present, Cardiovascular - Heart rhythm is regular. There is no murmur, gallop, or rub noted, Abdomen - Soft. Liver and spleen are not enlarged. There is no abdominal mass or ascites noted and there is no inguinal adenopathy, Extremities - No edema, Neurologic - No focal neurologic deficits noted. Lab/Imaging: Test performed on Oct 24, 2021 10:04 Sodium 138 mmol/L Potassium 4.3 mmol/L Chloride 99 mmol/L CO2 31 mmol/L Anion Gap 12.3 BUN 13 mg/dL Creatinine 0.5 mg/dL Cr Clearance (Est) 85.84 mL/min Glucose 98 mg/dL Osmolality - Calculated 286 mOsm/kg Calcium 10.3 mg/dL Protein, Total 7.6 g/dL Albumin 4.1 g/dL Globulin 3.5 g/dL Bilirubin, Total 0.4 mg/dL ALT (SGPT) 8 U/L AST (SGOT) 14 U/L Alkaline Phosphatase 85 IU/L WBC 8.1 10 3/uL RBC 5.40 10 6/uL HGB 15.7 g/dL HCT 48.6 % MCV 90.0 fl MCH 29.1 pg MCHC 32.3 g/dL RDW 14.6 % Platelet Count 288 10 3/cmm MPV 9.1 fL Neutrophils 5.13 10 3/uL Lymphocytes 1.9 10 3/uL Monocytes 0.7 10 3/uL Eosinophils 0.3 10 3/uL Basophils 0.1 10 3/uL Neutrophil % 63.0 % Lymphocyte % 23.6 % Monocyte % 9.0 % Eosinophil % 3.4 % Basophils % 0.6 % NRBC % 0 % Problem List: 1. Poorly differentiated squamous cell carcinoma involving the upper lobe of the right lung. By clinical evaluation her disease appeared to be stage IIB (T3, N0, M0), as her PET/CT was suspicious for a separate tumor nodule within the same lobe. 2. 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 She underwent laparoscopic sigmoid colectomy on 12/24/2017. 3. COPD. 4. Hypertension. 5. Hyperlipidemia. 6. GERD. 7. Fibromyalgia. 8. Nicotine dependence (cigarettes). Problems Addressed with this Encounter and Plan: 1. 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 By clinical evaluation her disease appeared to be stage IIB (T3, N0, M0), as her PET/CT was suspicious for a separate tumor nodule within the same lobe. On 09/08/2017 she began radiation concurrently with weekly carboplatin/Taxol chemotherapy. She completed radiation on 10/24/2017 to a total dose of 6300 cGy. She was given a total of 6 weekly infusions of carboplatin/Taxol. She had significant fatigue during the treatment, but she otherwise tolerated it pretty well. Her restaging CT scans on 12/04/2017 showed a decrease in the right upper lobe lung mass, but there was still significant residual mass in that area and there were persistent fibrotic changes in the right hilar area on her follow-up CT scans. In May 2018 she had presented with increasing pain in the mid back. The symptoms were suspicious for metastatic involvement, but there was no evidence for metastatic involvement in the bone by CT or bone scan. She declined to have an MRI. Her chest CT that time showed no progression of the lung cancer. Her restaging PET/CT on 10/03/2018 showed findings which were felt to be consistent with disease recurrence in the medial right upper lobe as well as progression of malignant mediastinal adenopathy. Her repeat chest CT in January 2019 also showed findings which were felt to be suspicious for disease progression in the right upper lobe, but her restaging PET/CT on 04/17/2019 showed stable findings with no evidence of disease progression. During follow-up she has continued to have fatigue and limited activity tolerance. She has some chronic shortness of breath and cough, all of which has worsened following COVID-19 virus infection in August 2021. Her CT scans show findings which are suggestive of slight disease progression. On my review with the patient, this does not appear to be significant enough to have her start treatment again. She remains on close observation. I will see her again in 3 months, or sooner as needed. 2. 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 She underwent laparoscopic sigmoid colectomy on 12/24/2017. She has been followed expectantly with no evidence of recurrence. Signed By: Giacomo Iqbal M.D. <<Signature on File>>
== END 2021-10-24 09:52 | disposition home or self-care (01) ==
PROVIDERS: PCP Internal Medicine; Visit Provider Internal Medicine Medical Oncology
DX: C34.11 Malignant neoplasm of upper lobe, right bronchus or lung (principal); Z87.891 Personal history of nicotine dependence; Z92.3 Personal history of irradiation; R53.83 Other fatigue; R06.02 Shortness of breath; R05.9 Cough, unspecified; Z86.16 Personal history of COVID-19; Z85.038 Personal history of other malignant neoplasm of large intestine
CPT/HCPCS: 36415; 80053; 85025; 99214

== ENCOUNTER 2022-01-29 13:30 | Oncology outpatient (recurring) (ONCR) | payer MEDICARE, MEDICAID, SELFPAY ==
--- NOTE | 2022-01-23 14:44 | CT_ITS ---
WS: [id number] CT CHEST WITH INTRAVENOUS CONTRAST HISTORY: LUNG CANCER TECHNIQUE: Contiguous 5 mm axial imaging performed on the thorax. Coronal and sagittal reformats are submitted. All CT scans at [facility] use at least one of these dose optimization techniques: automated exposure control; mA and/or kV adjustment per patient size (includes targeted exams where dose is matched to clinical indication); or iterative reconstruction. CONTRAST: Omnipaque 350; 75 mL IV. DLP: 607.50 mGy.cm COMPARISON: 10/18/2021 and 07/02/2021 Lungs and central airway: Severe changes of centrilobular chronic emphysema. Curvilinear opacificatio n adjacent to the mediastinum in the RIGHT upper lobe measures 3.5 x 1.5 cm and is stable. Probably a n area of atelectasis or chronic scarring from treatment. This is adjacent stranding. There are addit ional nodules within the lungs which have increased in size and become more concerning. There is a ne w nodule in the posterior RIGHT upper lobe which is slightly spiculated measuring 9 x 7 mm. Spiculate d mass in the RIGHT middle lobe has increased in size now measuring 13 x 15 mm as compared to 10 x 12 . RIGHT lower lobe nodule measures 10 x 12 mm and only slightly increased in size. Stable 4 mm nodule at the RIGHT lung base. Pleura: No effusions. Heart and pericardium: Normal size heart with no pericardial effusion. Mediastinum and josé antonio: Small mediastinal and hilar lymph nodes. The largest lymph nodes at the RIGHT h ilum measuring up to 12 mm. Mild bronchial wall thickening and lymphadenopathy surrounding the proxim al RIGHT lower lobe pulmonary artery. No significant interval change. Vessels: Moderate atherosclerotic plaque within the thoracic aorta. No aneurysm. Normal size pulmonar y artery. Chest wall and lower neck: No soft tissue masses. Upper abdomen: Visualized liver is negative. No adrenal mass. Osseous structures: No osteoblastic or osteolytic bone disease. CT/CT chest w con* [id number] IMPRESSION: 1. Continued mild progression of metastatic disease in the RIGHT lung since 10/18/2021 and 07/02/2021. 2. There is a new slightly spiculated nodule in the RIGHT upper lobe measuring 9 x 7 mm which may be new metastatic site. Previously described RIGHT middle a nd RIGHT lower lobe nodules have all slightly increased in size. 3. The curvilinear opacity adjacent to the medial RIGHT mediastinum is unchang ed. Probably posttreatment atelectasis and fibrosis. 4. Mediastinal and hilar lymph nodes have not significantly changed. The large st measures 12 mm at the RIGHT hilum. 5. Moderate atherosclerotic plaque within the aorta.
[2022-01-23 15:31] LABS: Blood Urea Nitrogen 9 mg/dL (8-23)
[2022-01-23] MEDS: iohexol 350 mg/mL 100 mL Btl IV (15:42)
[2022-01-24 13:09] LABS: Basophils % 0.5 %; Eosinophils # 0.2 10^3/uL (0.0-0.8); Eosinophils % 2.8 %; Hematocrit 47.7 % (37.0-47.0); Hemoglobin 14.9 g/dL (11.5-15.3); Lymphocytes # 2.4 10^3/uL (0.8-4.8); Lymphocytes % 30.6 %; Mean Corpuscular HGB Conc 31.2 g/dL (30.0-36.0); Mean Corpuscular Hemoglobin 28.7 pg (28.0-34.0); Mean Corpuscular Volume 91.7 fl (81-99); Mean Platelet Volume 9.3 fL (7.4-10.4); Monocytes # 0.7 10^3/uL (0.2-0.9); Monocytes % 9.3 %; Neutrophils # 4.49 10^3/uL (1.8-7.7); Neutrophils % 56.4 %; Nucleated Red Blood Cells % 0 %; Platelet Count 230 10^3/cmm (130-400); Red Cell Distribution Width 12.3 % (12.1-15.1)
[2022-01-24 13:33] LABS: Alanine Aminotransferase 7 U/L (0-33); Albumin Level 3.8 g/dL (3.5-5.2); Alkaline Phosphatase 72 IU/L (35-105); Anion Gap 13.9 (5-19); Aspartate Amino Transferase 13 U/L (0-32); Blood Urea Nitrogen 10 mg/dL (8-23); Calcium 9.5 mg/dL (8.5-10.5); Carbon Dioxide 29 mmol/L (22-29); Chloride 99 mmol/L (98-107); Globulin 3.7 g/dL (1.3-4.6); Glucose 84 mg/dL (65-115); Osmolality Calculated 284 mOsm/kg (285-295); Potassium 3.9 mmol/L (3.5-5.1); Sodium 138 mmol/L (136-145); Total Bilirubin 0.3 mg/dL (0.15-1.2); Total Protein 7.5 g/dL (6.6-8.7)
[2022-01-24] MEDS: ipratropium-albuterol 3 mL Neb INHALATION (16:04)
[2022-01-29 14:50] VITALS: BP 104/68; PULSE 68; RESP 18; TEMP 36.4; O2SAT 98
== END 2022-02-10 23:59 | disposition home or self-care (01) ==
PROVIDERS: PCP Internal Medicine; Visit Provider Internal Medicine Medical Oncology
DX: D72.829 Elevated white blood cell count, unspecified (principal)
CPT/HCPCS: 36415; 71260; 80053; 82565; 84520; 85025; 87070; 99214; 99215

== ENCOUNTER 2022-03-05 13:30 | Oncology outpatient (recurring) (ONCR) | payer MEDICARE, MEDICAID, SELFPAY ==
--- NOTE | 2022-03-05 13:30 | CT_ITS ---
WS: [id number] CT HEAD TECHNIQUE: Noncontrast and contrast-enhanced CT of the head. CLINICAL INFORMATION: lung cancer, weakness COMPARISON: 2019 DLP: 8.[address] scans at [facility] use at least one of these dose optimization techniques: automated e xposure control; mA and/or kV adjustment per patient size (includes targeted exams where dose is matc hed to clinical indication); or iterative reconstruction. FINDINGS: No evidence of enhancing intracranial metastatic disease. No evidence of intracranial hemorrhage or m ass effect. Moderate small vessel changes with moderate parenchymal volume loss. Parenchymal volume l oss worse in the frontal lobes. No extra-axial fluid collections. Paranasal sinuses and mastoid air cells well aerated. Cerumen in th e RIGHT EAC. Normal optic chiasm and pituitary infundibulum. No other suspicious findings. CT/CT head wo/w con [id number] IMPRESSION: No evidence of enhancing intracranial metastatic disease.
[2022-03-05] MEDS: iohexol 350 mg/mL 100 mL Btl IV (13:46)
== END 2022-03-13 23:59 | disposition home or self-care (01) ==
LOC: ONCMED 14:37
PROVIDERS: PCP Internal Medicine; Visit Provider Internal Medicine Medical Oncology
DX: C34.11 Malignant neoplasm of upper lobe, right bronchus or lung (principal); C77.2 Secondary and unspecified malignant neoplasm of intra-abdominal lymph nodes; R53.0 Neoplastic (malignant) related fatigue; F17.210 Nicotine dependence, cigarettes, uncomplicated; Z79.899 Other long term (current) drug therapy; Z92.21 Personal history of antineoplastic chemotherapy; Z92.3 Personal history of irradiation
CPT/HCPCS: 70470; 99214; 99215

== ENCOUNTER 2022-03-21 10:07 | Oncology outpatient (recurring) (ONCR) | payer MEDICARE, MEDICAID, SELFPAY ==
[2022-03-21 10:36] LABS: Basophils # 0.1 10^3/uL (0.0-0.1); Basophils % 0.6 %; Eosinophils # 0.3 10^3/uL (0.0-0.8); Eosinophils % 2.7 %; Hematocrit 47.7 % (37.0-47.0); Hemoglobin 14.9 g/dL (11.5-15.3); Lymphocytes # 2.1 10^3/uL (0.8-4.8); Lymphocytes % 21.9 %; Mean Corpuscular HGB Conc 31.2 g/dL (30.0-36.0); Mean Corpuscular Hemoglobin 28.4 pg (28.0-34.0); Monocytes # 0.9 10^3/uL (0.2-0.9); Neutrophils # 6.33 10^3/uL (1.8-7.7); Neutrophils % 65.3 %; Nucleated Red Blood Cells % 0 %; Platelet Count 284 10^3/cmm (130-400); Red Blood Count 5.24 10^6/uL (4.1-5.3); Red Cell Distribution Width 13.9 % (12.1-15.1); White Blood Count 9.7 10^3/uL (4.0-10.0)
[2022-03-21 10:52] LABS: Alanine Aminotransferase 10 U/L (0-33); Albumin Level 3.8 g/dL (3.5-5.2); Alkaline Phosphatase 80 U/L (35-105); Anion Gap 10.2 (5-19); Aspartate Amino Transferase 15 U/L (0-32); Blood Urea Nitrogen 9 mg/dL (8-23); Calcium 9.7 mg/dL (8.5-10.5); Carbon Dioxide 32 mmol/L (22-29); Chloride 101 mmol/L (98-107); Globulin 3.3 g/dL (1.3-4.6); Glucose 92 mg/dL (65-115); Osmolality Calculated 286 mOsm/kg (285-295); Potassium 4.2 mmol/L (3.5-5.1); Sodium 139 mmol/L (136-145); Total Bilirubin 0.5 mg/dL (0.15-1.2); Total Protein 7.1 g/dL (6.6-8.7)
== END 2022-04-12 23:59 | disposition home or self-care (01) ==
PROVIDERS: Nurse Practitioner; PCP Internal Medicine; Visit Provider Internal Medicine Medical Oncology
DX: C34.11 Malignant neoplasm of upper lobe, right bronchus or lung (principal); R53.0 Neoplastic (malignant) related fatigue; C77.8 Secondary and unspecified malignant neoplasm of lymph nodes of multiple regions; F17.210 Nicotine dependence, cigarettes, uncomplicated; K52.1 Toxic gastroenteritis and colitis; T45.1X5A Adverse effect of antineoplastic and immunosuppressive drugs, initial encounter; L27.0 Generalized skin eruption due to drugs and medicaments taken internally; Z79.899 Other long term (current) drug therapy; Z92.21 Personal history of antineoplastic chemotherapy; Z92.3 Personal history of irradiation; F41.9 Anxiety disorder, unspecified
CPT/HCPCS: 80053; 85025; 99214

== ENCOUNTER 2022-04-23 11:07 | Oncology outpatient (recurring) (ONCR) | payer MEDICARE, MEDICAID, SELFPAY ==
[2022-04-23 13:13] LABS: Basophils % 0.5 %; Eosinophils # 0.2 10^3/uL (0.0-0.8); Eosinophils % 2.7 %; Hematocrit 47.5 % (37.0-47.0); Hemoglobin 15.1 g/dL (11.5-15.3); Lymphocytes # 1.9 10^3/uL (0.8-4.8); Lymphocytes % 25.4 %; Mean Corpuscular HGB Conc 31.8 g/dL (30.0-36.0); Mean Corpuscular Hemoglobin 28.9 pg (28.0-34.0); Mean Corpuscular Volume 90.8 fl (81-99); Mean Platelet Volume 9.1 fL (7.4-10.4); Monocytes # 0.7 10^3/uL (0.2-0.9); Monocytes % 8.9 %; Neutrophils # 4.57 10^3/uL (1.8-7.7); Neutrophils % 61.8 %; Nucleated Red Blood Cells % 0 %; Platelet Count 304 10^3/cmm (130-400); Red Blood Count 5.23 10^6/uL (4.1-5.3); Red Cell Distribution Width 13.8 % (12.1-15.1); White Blood Count 7.4 10^3/uL (4.0-10.0)
[2022-04-23 13:34] LABS: Alanine Aminotransferase 7 U/L (0-33); Albumin Level 3.9 g/dL (3.5-5.2); Alkaline Phosphatase 86 U/L (35-105); Anion Gap 11.5 (5-19); Aspartate Amino Transferase 16 U/L (0-32); Blood Urea Nitrogen 8 mg/dL (8-23); Calcium 9.8 mg/dL (8.5-10.5); Carbon Dioxide 34 mmol/L (22-29); Chloride 98 mmol/L (98-107); Globulin 3.4 g/dL (1.3-4.6); Glucose 98 mg/dL (65-115); Osmolality Calculated 286 mOsm/kg (285-295); Potassium 4.5 mmol/L (3.5-5.1); Sodium 139 mmol/L (136-145); Total Bilirubin 0.5 mg/dL (0.15-1.2); Total Protein 7.3 g/dL (6.6-8.7)
== END 2022-05-13 23:59 | disposition home or self-care (01) ==
PROVIDERS: PCP Internal Medicine; Visit Provider Internal Medicine Medical Oncology
DX: C34.11 Malignant neoplasm of upper lobe, right bronchus or lung (principal); C77.8 Secondary and unspecified malignant neoplasm of lymph nodes of multiple regions; R53.0 Neoplastic (malignant) related fatigue; F17.210 Nicotine dependence, cigarettes, uncomplicated; R19.7 Diarrhea, unspecified; L27.0 Generalized skin eruption due to drugs and medicaments taken internally; T45.1X5A Adverse effect of antineoplastic and immunosuppressive drugs, initial encounter; M79.669 Pain in unspecified lower leg; Z23 Encounter for immunization; Z79.899 Other long term (current) drug therapy; Z92.21 Personal history of antineoplastic chemotherapy; Z92.3 Personal history of irradiation
CPT/HCPCS: 80053; 85025; 90471; 90686; 99214

== ENCOUNTER 2022-05-03 13:52 | Outpatient (CLI) | payer MEDICARE, MEDICAID, SELFPAY ==
--- NOTE | 2022-05-03 14:15 | USCV_ITS ---
Giovanna Gottlieb Age: 81 Gender: F : 1940 Exam Date: 05/03/2022 14:09 Ordering Phys: Giacomo Iqbal MD Technologist: FABRIZIO Exam Location: [facility] – [place], [place] Indication: Bilateral Calf Pain HISTORY: Lower extremity pain. PROCEDURES: Venous duplex imaging was performed in bilateral lower extremities. The following venous structures were evaluated: common femoral vein, profunda vein, proximal portion of the greater saphenous vein, superficial femoral vein, and the popliteal vein. In addition, the posterior tibial and peroneal trunk were evaluated. Bilaterally, the common femoral, superficial femoral, profunda femoral, popliteal, posterior tibial, greater saphenous veins, and the peroneal trunk were identified and interrogated in the standard fashion. FINDINGS: Normal 2-D Doppler and augmentation and compressibility throughout the lower extremity venous structures. Additional imaging through the proximal calf veins also reveals no thrombus. Limited evaluation of the greater saphenous vein is patent with no thrombus. CONCLUSIONS No DVT bilateral lower extremities. Dr. Karlee Flowers DO (Electronically Signed) Final Date: 03 May 2022 14:52 S
[2022-05-03] MEDS: iohexol 350 mg/mL 100 mL Btl IV (15:10)
[2022-05-03] MEDS: iohexol 350 mg/mL 100 mL Btl PO (15:11)
--- NOTE | 2022-05-03 15:30 | CTR_ITS ---
PROCEDURE INFORMATION: Exam: CT Chest With Contrast; Diagnostic Exam date and time: 05/03/2022 3:18 PM Age: 81 years old Clinical indication: Other: Shortness of breath; Prior surgery; Patient HX: Lung and colon cancer TECHNIQUE: Imaging protocol: Diagnostic computed tomography of the chest with contrast. Radiation optimization: All CT scans at this facility use at least one of these dose optimization techniques: automated exposure control; mA and/or kV adjustment per patient size (includes targeted exams where dose is matched to clinical indication); or iterative reconstruction. Contrast material: OMNI 350; Contrast volume: 95 ml; Contrast route: INTRAVENOUS (IV); COMPARISON: CT chest w con* [id number] 01/23/2022 3:34 PM RADIATION DOSE METRICS: Total DLP (mGy-cm): 1425.24 FINDINGS: Thyroid: Multiple cysts or nodules present in both lobes of the thyroid measuring up to approximately 10 mm in size. Lungs: There is bilateral centrilobular emphysema. Stable fan-shaped scarring and/or atelectasis in the right upper lobe. Slight increase in size of a noncalcified nodule in the posteromedial right lower lobe, now measuring 12 mm x 14 mm in size. The noncalcified nodule in the posterior right upper lobe appears smaller, now measuring 7 mm x 4 mm in size. The right middle lobe nodule appears unchanged measuring approximately 13 mm x 15 mm in size. Pleural spaces: No pleural effusion or pneumothorax. Heart: The heart is not enlarged. No pericardial effusion. Lymph nodes: Non-pathologically enlarged mediastinal lymph nodes are present. No change in right hilar lymph nodes. Vasculature: The thoracic aorta is atherosclerotic. No focal thoracic aortic aneurysm or dissection. There is a ductus diverticulum. Bones/joints: Multilevel disc degeneration in the thoracic spine. Soft tissues: No acute soft tissue abnormality. COMMENTS: Consistent with the [employer]'s Incidental Findings Committee white paper (J Am Thaddeus Radiol 2015): In patients aged 35 years and older with an incidental thyroid nodule equal to or greater than 1.[address], MRI or extrathyroidal US, further evaluation with dedicated thyroid US is recommended for patients with normal life expectancy and without comorbidities. For smaller nodules without suspicious features, no further evaluation or follow up is recommended. PROCEDURE INFORMATION: Exam: CT Abdomen And Pelvis With Contrast Exam date and time: 05/03/2022 3:18 PM Age: 81 years old Clinical indication: Other: Shortness of breath; Prior surgery; Patient HX: Lung and colon cancer TECHNIQUE: Imaging protocol: Computed tomography of the abdomen and pelvis with contrast. Radiation optimization: All CT scans at this facility use at least one of these dose optimization techniques: automated exposure control; mA and/or kV adjustment per patient size (includes targeted exams where dose is matched to clinical indication); or iterative reconstruction. Contrast material: OMNI 350; Contrast volume: 95 ml; Contrast route: INTRAVENOUS (IV); COMPARISON: CT chest w con* [id number] 01/23/2022 3:34 PM RADIATION DOSE METRICS: Total DLP (mGy-cm): 1425.24 FINDINGS: Liver: The liver is not enlarged. No liver masses identified. There is an ill-defined focus of diminished subcapsular attenuation in segment 4B adjacent to the fissure for the falciform ligament which can be due to focal fatty change or an area of anomalous perfusion. Gallbladder and bile ducts: No calcified gallstones, gallbladder wall thickening, or pericholecystic inflammation. No biliary ductal dilation. Pancreas: No pancreatic mass. No peripancreatic inflammation. No pancreatic ductal dilation. Spleen: The spleen is homogeneous and is not enlarged. Adrenal glands: No adrenal mass. Kidneys and ureters: No hydronephrosis. No nephrolithiasis. Bilateral simple appearing renal cysts measuring up to approximately 1.6 cm in size. Stomach and bowel: No bowel obstruction or diverticulitis. Appendix: No evidence of appendicitis. Intraperitoneal space: No ascites or pneumoperitoneum. Vasculature: No abdominal aortic aneurysm. The mesenteric arteries are patent. The mesenteric, portal, and hepatic veins are patent. Lymph nodes: No pathologically enlarged lymph nodes. Urinary bladder: No urinary bladder calculus or wall thickening. Reproductive: Unremarkable as visualized. Bones/joints: The multilevel facet arthropathy in the lower lumbar spine. Soft tissues: Wide-mouth paraumbilical hernia containing colon without bowel obstruction or strangulation. CT/CT chest abd pel w con* IMPRESSION: Slight increase in size of the right upper lobe nodule, potentially a metastatic deposit. See above. IMPRESSION: 1. No sign of metastatic disease. 2. Paraumbilical hernia containing colon without bowel obstruction or strangulation. COMMENTS: Consistent with the [employer]'s Incidental Findings Committee white paper (J Am Thaddeus Radiol 2018): Any incidental renal lesion less than 1 cm or classified as too small to characterize, or any incidental cystic renal lesion characterized as simple-appearing, is likely benign. No follow-up imaging is recommended for these lesions per consensus recommendations based on imaging criteria.
== END 2022-05-03 13:53 | disposition home or self-care (01) ==
LOC: RAD 13:54
PROVIDERS: PCP Internal Medicine; Visit Provider Internal Medicine Medical Oncology
DX: M79.661 Pain in right lower leg (principal); M79.662 Pain in left lower leg; C34.11 Malignant neoplasm of upper lobe, right bronchus or lung
CPT/HCPCS: 71260; 74177; 93970

== ENCOUNTER 2022-06-24 10:18 | Oncology outpatient (recurring) (ONCR) | payer MEDICARE, MEDICAID, SELFPAY ==
[2022-06-24 11:14] LABS: Basophils % 0.4 %; Eosinophils # 0.3 10^3/uL (0.0-0.8); Eosinophils % 2.9 %; Hematocrit 44.1 % (37.0-47.0); Hemoglobin 13.8 g/dL (11.5-15.3); Lymphocytes # 2.1 10^3/uL (0.8-4.8); Lymphocytes % 22.5 %; Mean Corpuscular HGB Conc 31.3 g/dL (30.0-36.0); Mean Corpuscular Hemoglobin 28.4 pg (28.0-34.0); Mean Corpuscular Volume 90.7 fl (81-99); Mean Platelet Volume 9.8 fL (7.4-10.4); Monocytes # 0.9 10^3/uL (0.2-0.9); Monocytes % 9.5 %; Neutrophils # 5.91 10^3/uL (1.8-7.7); Neutrophils % 64.2 %; Nucleated Red Blood Cells % 0 %; Platelet Count 323 10^3/cmm (130-400); Red Blood Count 4.86 10^6/uL (4.1-5.3); White Blood Count 9.2 10^3/uL (4.0-10.0)
[2022-06-24 11:34] LABS: Albumin Level 3.6 g/dL (3.5-5.2); Alkaline Phosphatase 91 U/L (35-105); Anion Gap 12.8 (5-19); Aspartate Amino Transferase 16 U/L (0-32); Blood Urea Nitrogen 7 mg/dL (8-23); Calcium 7.9 mg/dL (8.5-10.5); Carbon Dioxide 29 mmol/L (22-29); Chloride 99 mmol/L (98-107); Globulin 3.3 g/dL (1.3-4.6); Glucose 98 mg/dL (65-115); Osmolality Calculated 282 mOsm/kg (285-295); Potassium 3.8 mmol/L (3.5-5.1); Sodium 137 mmol/L (136-145); Total Bilirubin 0.3 mg/dL (0.15-1.2); Total Protein 6.9 g/dL (6.6-8.7)
[2022-06-24 11:46] LABS: Alanine Aminotransferase 9 U/L (0-33)
== END 2022-07-13 23:59 | disposition home or self-care (01) ==
PROVIDERS: PCP Internal Medicine; Visit Provider Internal Medicine Medical Oncology
DX: Z92.3 Personal history of irradiation (principal); C34.11 Malignant neoplasm of upper lobe, right bronchus or lung; R05.9 Cough, unspecified; F17.210 Nicotine dependence, cigarettes, uncomplicated; R09.89 Other specified symptoms and signs involving the circulatory and respiratory systems; Z79.899 Other long term (current) drug therapy; Z79.2 Long term (current) use of antibiotics; C77.8 Secondary and unspecified malignant neoplasm of lymph nodes of multiple regions; R53.0 Neoplastic (malignant) related fatigue; R19.7 Diarrhea, unspecified; L27.0 Generalized skin eruption due to drugs and medicaments taken internally; T45.1X5A Adverse effect of antineoplastic and immunosuppressive drugs, initial encounter; M79.669 Pain in unspecified lower leg; Z23 Encounter for immunization; Z92.21 Personal history of antineoplastic chemotherapy
CPT/HCPCS: 80053; 85025; 99214

== ENCOUNTER 2022-07-23 12:47 | Oncology outpatient (recurring) (ONCR) | payer MEDICARE, MEDICAID, SELFPAY | END 2022-08-13 23:59 | disposition home or self-care (01) | PROVIDERS: Visit Provider Internal Medicine Medical Oncology | DX: C34.11 Malignant neoplasm of upper lobe, right bronchus or lung (principal); R53.0 Neoplastic (malignant) related fatigue; C78.01 Secondary malignant neoplasm of right lung; L27.0 Generalized skin eruption due to drugs and medicaments taken internally; T45.1X5A Adverse effect of antineoplastic and immunosuppressive drugs, initial encounter; R19.7 Diarrhea, unspecified; R05.8 Other specified cough; R06.02 Shortness of breath; M54.50 Low back pain, unspecified; M79.604 Pain in right leg; F17.210 Nicotine dependence, cigarettes, uncomplicated; Z79.891 Long term (current) use of opiate analgesic; Z79.899 Other long term (current) drug therapy | CPT/HCPCS: 99214 ==

== ENCOUNTER 2022-07-24 12:17 | Outpatient (CLI) | payer MEDICARE, MEDICAID, SELFPAY | END 2022-07-24 12:18 | disposition home or self-care (01) | LOC: RT 12:20 | PROVIDERS: Visit Provider Internal Medicine Pulmonary Disease | DX: C34.11 Malignant neoplasm of upper lobe, right bronchus or lung (principal); J40 Bronchitis, not specified as acute or chronic | CPT/HCPCS: 94060; 94618; 94729; J7613 ==

== ENCOUNTER 2022-08-22 09:21 | Outpatient (CLI) | payer MEDICARE, MEDICAID, SELFPAY ==
--- NOTE | 2022-08-22 10:30 | CT_ITS ---
WS: [id number] CT CHEST, ABDOMEN AND PELVIS WITH CONTRAST HISTORY: lung cancer, sigmoid colon cancer TECHNIQUE: Contiguous 5 mm axial imaging performed through the chest, abdomen and pelvis with IV cont rast, oral contrast has been provided. Coronal and sagittal reformats chest. Coronal and sagittal ref ormats through the abdomen and pelvis. All CT scans at [facility] use at least one of these d ose optimization techniques: automated exposure control; mA and/or kV adjustment per patient size (in cludes targeted exams where dose is matched to clinical indication); or iterative reconstruction. CONTRAST: Omnipaque 350; 95 mL IV. DLP: 762.65 mGy.cm COMPARISON: 05/03/2022 and PET/CT 02/02/[address]: Chronic hyperexpanded lungs from emphysema. Medial RIGHT upper lobe mass has slightly incre ased in size now measuring 16 x 15 mm. Stable 4 mm nodule along the minor fissure. Medial RIGHT lower lobe pulmonary nodule measures 13 x 13 mm which has not significantly changed. Stable 4 mm nodule pe riphery RIGHT lower lobe. Chronic area of atelectasis along the medial RIGHT upper lobe is stable. Fi brotic changes and chronic atelectasis are also noted in the RIGHT upper lobe. No axillary lymph nodes. Bronchial wall thickening on the RIGHT measures up to 8 mm inferiorly simila r to the prior study. There are several lymph nodes in the hilar regions with the largest on the LEFT measuring 10 mm. Not appreciably changed or increased in size. Moderate atherosclerotic plaque withi n the aorta. Pulmonary artery size is slightly enlarged. Small hiatal hernia. Stable RIGHT thyroid no dules. Abdomen CT: Normal size liver. No metastatic disease. Focal fatty sparing along the falciform ligamen t. Gallbladder is slightly contracted. Normal size spleen. Negative pancreas. Mild thickening of the adrenal glands. Moderate atherosclerotic plaque. Similar plaque is ulcerated. No aneurysm. Kidneys ar e normal size with multiple small cortical nodules which are probably cysts but some are too small to characterize. No adenopathy or ascites. Stomach is well distended with oral contrast. No small bowel obstruction. Ventral abdominal wall saroj ia contains transverse colon with no obstruction. Surgical anastomotic site near the rectosigmoid is unchanged. There is no obstruction or recurrent soft tissue mass or adjacent adenopathy. Pelvic CT: No free fluid or adenopathy. Negative urinary bladder. Increasing size of the lytic lesion with sclerotic borders involving the RIGHT sacrum. Lesion measure s 2.1 x 2.3 cm. Previously described as suspicious on the PET/CT of 02/02/2022. Increased in size sinc e 05/03/[address]/CT chest abdpel w/*[id number] IMPRESSION: 1. Very slight increase in size of the RIGHT upper lobe known neoplasm now tabatha suring 16 x 15 mm. The remaining right-sided nodules are not significantly trujillo ged. 2. Continued RIGHT main bronchial wall thickening. Lymph nodes in the mediasti num and josé antonio are unchanged. 3. Increase in size of the metastatic lesion in the RIGHT sacrum. 4. Stable rectosigmoid anastomotic sutures with no recurrent mass. 5. No metastatic disease to the liver or adrenal glands.
[2022-08-22] MEDS: iohexol 350 mg/mL 500 mL Btl (per mL) PO (11:11)
[2022-08-22] MEDS: iohexol 350 mg/mL 500 mL Btl (per mL) IV (11:11)
== END 2022-08-22 09:22 | disposition home or self-care (01) ==
LOC: RAD 09:23
PROVIDERS: Visit Provider Internal Medicine Medical Oncology
DX: C34.11 Malignant neoplasm of upper lobe, right bronchus or lung (principal); C18.7 Malignant neoplasm of sigmoid colon
CPT/HCPCS: 71260; 74177; Q9967

== ENCOUNTER 2022-09-04 08:51 | Oncology outpatient (recurring) (ONCR) | payer MEDICARE, MEDICAID, SELFPAY ==
[2022-09-04 09:18] LABS: Basophils # 0.1 10^3/uL (0.0-0.1); Basophils % 0.5 %; Eosinophils # 0.2 10^3/uL (0.0-0.8); Hematocrit 42.3 % (37.0-47.0); Hemoglobin 13.2 g/dL (11.5-15.3); Lymphocytes # 1.5 10^3/uL (0.8-4.8); Lymphocytes % 15.5 %; Mean Corpuscular HGB Conc 31.2 g/dL (30.0-36.0); Mean Corpuscular Hemoglobin 27.5 pg (28.0-34.0); Mean Corpuscular Volume 88.1 fl (81-99); Mean Platelet Volume 9.7 fL (7.4-10.4); Monocytes # 0.8 10^3/uL (0.2-0.9); Monocytes % 8.5 %; Neutrophils # 7.16 10^3/uL (1.8-7.7); Neutrophils % 73.3 %; Nucleated Red Blood Cells % 0 %; Platelet Count 326 10^3/cmm (130-400); White Blood Count 9.8 10^3/uL (4.0-10.0)
[2022-09-04 10:35] LABS: Alanine Aminotransferase 6 U/L (0-33); Albumin Level 3.5 g/dL (3.5-5.2); Alkaline Phosphatase 97 U/L (35-105); Anion Gap 11.5 (5-19); Aspartate Amino Transferase 14 U/L (0-32); Blood Urea Nitrogen 10 mg/dL (8-23); Calcium 9.8 mg/dL (8.5-10.5); Carbon Dioxide 31 mmol/L (22-29); Chloride 97 mmol/L (98-107); Glucose 119 mg/dL (65-115); Osmolality Calculated 280 mOsm/kg (285-295); Potassium 4.5 mmol/L (3.5-5.1); Sodium 135 mmol/L (136-145); Total Bilirubin 0.2 mg/dL (0.15-1.2); Total Protein 7.5 g/dL (6.6-8.7)
== END 2022-09-10 23:59 | disposition home or self-care (01) ==
LOC: ONCMED 08:52
PROVIDERS: Visit Provider Internal Medicine Medical Oncology
DX: C34.11 Malignant neoplasm of upper lobe, right bronchus or lung (principal); C78.01 Secondary malignant neoplasm of right lung; R53.0 Neoplastic (malignant) related fatigue; C77.8 Secondary and unspecified malignant neoplasm of lymph nodes of multiple regions; L27.0 Generalized skin eruption due to drugs and medicaments taken internally; T45.1X5A Adverse effect of antineoplastic and immunosuppressive drugs, initial encounter; R19.7 Diarrhea, unspecified; F17.210 Nicotine dependence, cigarettes, uncomplicated; Z79.891 Long term (current) use of opiate analgesic; C79.51 Secondary malignant neoplasm of bone; Z79.899 Other long term (current) drug therapy
CPT/HCPCS: 80053; 85025; 99215

== ENCOUNTER 2022-09-10 07:19 | Day surgery (SDC) | payer MEDICARE, MEDICAID, SELFPAY ==
[2022-09-06 10:58] VITALS: BMI 24.0
[2022-09-10] VITALS (11 sets, daily range): BP systolic 113–154; BP diastolic 60–86; PULSE 81–108; RESP 16–18; TEMP 36.1–37; O2SAT 87–98
[2022-09-10] MEDS: sodium chloride 0.9% 1,000 ML 30 ML IV (08:20)
--- NOTE | 2022-09-10 08:36 | ANES.PREANE2 ---
Pre-Anesthetic Assessment Height/Weight: Height 1.6 m Weight 61.689 kg Temp Pulse Resp BP Pulse Ox O2 Del Method O2 Flow Rate 98.6 F 82 18 128/63 95 2 09/10/22 07:55 09/10/22 07:55 09/10/22 07:55 09/10/22 07:55 09/10/22 07:55 09/10/22 07:55 09/10/22 07:55 Operation Date: 09/10/22 09:10 Proposed Procedures p ION robotic bronchoscopy with EBUS; [id number], [id number], 24390, 29313, 63093, 83379, 23551, 60629, 60192, 28169, 89341, 41747, 82991,34.11(Not Applicable) - Jomar Soriano MD s Ebus(Not Applicable) - Jomar Soriano MD Familial anesthetic complications: None Was Beta Katherin taken within 24 hours: N/A Was Clonidine taken within 24 hours: N/A Last intake: Intake Last Liquid Date 09/09/22 Last Liquid Time 16:30 Last Solid Date 09/09/22 Last Solid Time 16:30 Social Tobacco and No alcohol Exam alert, oriented x 3 and regular rate & rhythm Airway Submandibular: within normal limits Cervical ROM: within normal limits Mallampati: Class II Dentition: false Pulmonary Chronic Obstructive Pulmonary Disease CV/HEM Coronary Artery Disease, Hypertension and Myocardial Infarction Neuropsych Anxiety and Depression Anesthetic Plan ASA status: 3 Anesthesia: General Medications/Allergies Home Medications Medication Instructions Recorded Confirmed Last Taken Type aspirin 81 mg tablet,delayed 81 mg PO DAILY 07/18/19 09/10/22 09/05/22 History release (Corey Low Dose Aspirin) albuterol sulfate 90 mcg/actuation 90 mcg inhalation Q4H PRN 08/30/21 09/10/22 09/09/22 History breath activated powder inhaler Shortness Of Breath (ProAir RespiClick) oxygen #1 ea 11/14/21 09/04/22 Unknown Rx paroxetine HCl 20 mg tablet 20 mg PO DAILY #90 tabs 12/06/21 09/10/22 09/09/22 Rx loratadine 10 mg tablet (Allergy 10 mg PO DAILY 05/01/22 09/10/22 09/09/22 History Relief (loratadine)) benzonatate 200 mg capsule 200 mg PO TID #90 caps 06/24/22 09/10/22 09/09/22 Rx vitamins A,C,M-hyjo-bsvjug 14,320 1 cap PO BID 06/24/22 09/10/22 09/09/22 History unit-226 mg-200 unit capsule (PreserVision AREDS) umeclidinium 62.5 mcg-vilanterol 1 inh inhalation DAILY #60 ea 07/25/22 09/10/22 09/09/22 Rx 25 mcg/actuation powdr for inhalation (Anoro Ellipta) alprazolam 0.25 mg tablet 0.25 mg PO BID PRN anxiety #60 tabs 08/29/22 09/10/22 09/09/22 Rx hydromorphone 2 mg tablet See Rx Instructions PO Q6H PRN 09/04/22 09/10/22 09/10/22 Rx pain 30 days #60 tabs mucous relief 1 tab PO BID 09/04/22 09/10/22 09/09/22 History gabapentin 300 mg capsule 300 mg PO BID 09/06/22 09/10/22 09/09/22 History trazodone 50 mg tablet 50 mg PO BEDTIME 09/06/22 09/10/22 09/09/22 History Allergies Allergy/AdvReac Type Severity Reaction Status Date / Time levofloxacin Allergy Mild ADR-Anxiety Verified 09/10/22 08:01 codeine Allergy ALGY-Difficulty Verified 09/10/22 08:01 Breathing hydrocodone [From Vicodin] Allergy ADR-Halluci Verified 09/10/22 08:01 nating Penicillins Allergy ALGY-Rash Verified 09/10/22 08:01 pneumococcal vaccine Allergy ALGY-Swell Verified 09/10/22 08:01 Lip/Tongue/Throat Sulfa (Sulfonamide Allergy ALGY-Rash Verified 09/10/22 08:01 Antibiotics) Current Medications Generic Name Dose Route Start Last Admin Trade Name Freq PRN Reason Stop Dose Admin Sodium Chloride 1,000 mls @ 30 mls/hr 09/10/22 08:00 09/10/22 08:20 Sodium Chloride 0.9% IV 09/11/22 07:59 30 mls/hr .Q24H YADIRA Administration PFSH Anesthesia Medical History Anxiety and depression Cervical spondylosis with myelopathy Colon cancer COPD (chronic obstructive pulmonary disease) Fibromyalgia GERD (gastroesophageal reflux disease) Hyperlipidemia Hypertension Non-small cell lung cancer Surgical History History of bronchoscopy (08/20/17) Bronchoscopy with right upper lobe bronchial biopsy and mediastinoscopy History of carpal tunnel release of both wrists History of eye surgery Bilateral eye implants History of hysterectomy with bilateral oophorectomy History of partial colectomy (12/24/17) Laparoscopic sigmoid colectomy with stapled EEA anastomosis Family History Other CAD (coronary artery disease) Cancer Dementia Hyperlipidemia Hypertension Stroke Denies family history of Diabetes Clotting disorder Psychiatric illness Chronic kidney disease (CKD) Suicide Anesthesia complication Bleeding disorder Lung disease Social History Smoking and tobacco status: current every day smoker cigarettes Packs smoked per day: 1 Alcohol intake: never Data Anesthesia Cardiac Studies: No Data to Display
--- NOTE | 2022-09-10 09:25 | P.HP_ITS ---
Providers/Chief Complaint Admitting Physician: Jomar Soriano MD [facility] Referring Physican: Dr. 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 By clinical evaluation her disease appeared to be stage IIB (T3, N0, M0).s/p chemoradiation in 2018.? Her restaging CT scans on 12/04/2017 showed a decrease in the right upper lobe lung mass, but there was still significant residual mass in that area and there were persistent fibrotic changes in the right hilar area on her follow-up CT scans.? Her restaging PET/CT on 10/03/2018 showed findings which were felt to be consistent with disease recurrence in the medial right upper lobe as well as progression of malignant mediastinal adenopathy.? Her repeat chest CT in January 2019 also showed findings which were felt to be suspicious for disease progression in the right upper lobe, but her restaging PET/CT on 04/17/2019 showed stable findings with no evidence of disease progression.? ?As of her follow-up visit in January 2022 her symptoms had worsened, and her restaging chest CT showed evidence of mild progression of metastatic disease in the right lung.? Her subsequent restaging PET/CT showed evidence of FDG avid pulmonary nodules in the right middle and lower lobes and also possibly in the right upper lobe.? Metastatic adenopathy was noted in the right hilum and in the subcarinal and right paratracheal territories.? There was possible early osseous metastatic disease noted in the right sacrum.? With her PET/CT T findings consistent with disease progression but with relatively low tumor burden, she was given the option to have a trial of therapy with erlotinib. She began treatment with erlotinib 150 mg daily on 03/05/2022.? She is referred to pulmonary clinic by oncology for recurrent lung cancer as well as optimization of COPD. Her most recent CT chest 08/22/2022 showed slight increase in right upper lobe no neoplasm measuring 16 x 15 mm. There was medial right lower lobe pulmonary nodule measuring 13 x 13 (which was PET active SUV 7.8 in January 2022) and there is another right middle lobe 1.2 x 1.4 cm solid nodule(SUV 11.7 in January 2022). There is right hilar adenopathy(SUV was 8.1 in January 2022 PET/CT) suspicious for metastatic disease. Also noted bronchial wall thickening of right mainstem. She also underwent laparoscopic sigmoid colectomy in December 2017-pathology showed moderately differentiated adenocarcinoma with no involvement in 3 regional lymph nodes. The concern is if all these lesions are related to recurrent cancer, new cancer, or metastatic from colon. COPD. Current smoker, 0.5-1 ppd. Currently using Wixela BID and duoneb 2 x day. Pt reports not using albuterol inhaler. Today she is scheduled for bronchoscopy guided biopsies of right middle lobe, right lower lobe, possible endobronchial biopsies of right mainstem bronchus, endobronchial ultrasound-guided biopsies of hilar/mediastinal lymph nodes. Medications/Allergies Home Medications Medication Instructions Recorded Confirmed Last Taken Type aspirin 81 mg tablet,delayed 81 mg PO DAILY 07/18/19 09/10/22 09/05/22 History release (Corey Low Dose Aspirin) albuterol sulfate 90 mcg/actuation 90 mcg inhalation Q4H PRN 08/30/21 09/10/22 09/09/22 History breath activated powder inhaler Shortness Of Breath (ProAir RespiClick) oxygen #1 ea 11/14/21 09/04/22 Unknown Rx paroxetine HCl 20 mg tablet 20 mg PO DAILY #90 tabs 12/06/21 09/10/22 09/09/22 Rx loratadine 10 mg tablet (Allergy 10 mg PO DAILY 05/01/22 09/10/22 09/09/22 History Relief (loratadine)) benzonatate 200 mg capsule 200 mg PO TID #90 caps 06/24/22 09/10/22 09/09/22 Rx vitamins A,C,W-hual-gdrbyv 14,320 1 cap PO BID 06/24/22 09/10/22 09/09/22 History unit-226 mg-200 unit capsule (PreserVision AREDS) umeclidinium 62.5 mcg-vilanterol 1 inh inhalation DAILY #60 ea 07/25/22 09/10/22 09/09/22 Rx 25 mcg/actuation powdr for inhalation (Anoro Ellipta) alprazolam 0.25 mg tablet 0.25 mg PO BID PRN anxiety #60 tabs 08/29/22 09/10/22 09/09/22 Rx hydromorphone 2 mg tablet See Rx Instructions PO Q6H PRN 09/04/22 09/10/22 09/10/22 Rx pain 30 days #60 tabs mucous relief 1 tab PO BID 09/04/22 09/10/22 09/09/22 History gabapentin 300 mg capsule 300 mg PO BID 09/06/22 09/10/22 09/09/22 History trazodone 50 mg tablet 50 mg PO BEDTIME 09/06/22 09/10/22 09/09/22 History Allergies Allergy/AdvReac Type Severity Reaction Status Date / Time levofloxacin Allergy Mild ADR-Anxiety Verified 09/10/22 08:01 codeine Allergy ALGY-Difficulty Verified 09/10/22 08:01 Breathing hydrocodone [From Vicodin] Allergy ADR-Halluci Verified 09/10/22 08:01 nating Penicillins Allergy ALGY-Rash Verified 09/10/22 08:01 pneumococcal vaccine Allergy ALGY-Swell Verified 09/10/22 08:01 Lip/Tongue/Throat Sulfa (Sulfonamide Allergy ALGY-Rash Verified 09/10/22 08:01 Antibiotics) PFSH PFSH: Medical History Anxiety and depression Cervical spondylosis with myelopathy Colon cancer COPD (chronic obstructive pulmonary disease) Fibromyalgia GERD (gastroesophageal reflux disease) Hyperlipidemia Hypertension Non-small cell lung cancer Surgical History History of bronchoscopy (08/20/17) Bronchoscopy with right upper lobe bronchial biopsy and mediastinoscopy History of carpal tunnel release of both wrists History of eye surgery Bilateral eye implants History of hysterectomy with bilateral oophorectomy History of partial colectomy (12/24/17) Laparoscopic sigmoid colectomy with stapled EEA anastomosis Family History Other CAD (coronary artery disease) Cancer Dementia Hyperlipidemia Hypertension Stroke Denies family history of Diabetes Clotting disorder Psychiatric illness Chronic kidney disease (CKD) Suicide Anesthesia complication Bleeding disorder Lung disease Social History Smoking and tobacco status: current every day smoker cigarettes Packs smoked per day: 1 Alcohol intake: never Vital Signs Vitals Signs: Last Vital Signs Temp 98.6 F 09/10/22 07:55 Pulse 82 09/10/22 07:55 Resp 18 09/10/22 07:55 BP 128/63 09/10/22 07:55 Pulse Ox 95 09/10/22 07:55 O2 Del Method 09/10/22 07:55 O2 Flow Rate 2 09/10/22 07:55 Physical Exam Narrative: EXAM NARRATIVE: General: alert, NAD HEENT: conj clear, EOMI, PERRL, mmm, Neck: supple, no meningismus Heme: no cervical LAP Pulmonary: CTAB, no wheezing, rhonchi, crackles Cardiovascular: rrr, nl s1s2, no mrg Abdomen: soft, nt, nd, no r/g, bs+ Extremities: pulses +, no edema, no c/c : no CVA tenderness Skin: intact, no rash MSK: no back or neck pain Neurologic: grossly intact A&P Assessment and plan (1) Pulmonary nodules/lesions, multiple: (2) Malignant neoplasm of upper lobe, right bronchus or lung: (3) Malignant neoplasm of sigmoid colon: Plan Patient with previous history of squamous cell lung cancer as well as adenocarcinoma sigmoid: Now has surveillance CT chest 08/22/2022 showed slight increase in right upper lobe no neoplasm measuring 16 x 15 mm. There was medial right lower lobe pulmonary nodule measuring 13 x 13 (which was PET active SUV 7.8 in January 2022) and there is another right middle lobe 1.2 x 1.4 cm solid nodule(SUV 11.7 in January 2022). There is right hilar adenopathy(SUV was 8.1 in January 2022 PET/CT) suspicious for metastatic disease. Also noted bronchial wall thickening of right mainstem. Today she is scheduled for bronchoscopic evaluation to obtain biopsies from right lower lobe and right middle lobe PET active lesions, endobronchial lesion, hilar and mediastinal lymph nodes. Patient and son were educated about the nature of the procedure, alternatives, indication of the procedure, risks, complications including pneumothorax requiring chest tube and hospital admission, bleeding. They verbalized understanding and agreed with the plan, Coding Level of Care Code Acute Code for Chg Fwd Diagnoses Pulmonary nodules/lesions, multiple R91.8 Malignant neoplasm of upper lobe, right bronchus or lung C34.11 Malignant neoplasm of sigmoid colon C18.7 Time Spent (min) 17
--- NOTE | 2022-09-10 10:30 | SC_ITS ---
WS: [id number] C-arm fluoroscopy for bronchoscopy, 09/10/2022 Clinical Data: ion Comparison: None. Findings: C-arm fluoroscopy images of the right upper lobe. SC/C-arm FL for Bronchoscopy Impression: Imaging of the right upper lobe.
[2022-09-10] MEDS: lidocaine 1% INJ 10 mL (per mL) 100 ML (10:40)
--- NOTE | 2022-09-10 12:48 | P.OP_ITS ---
Operative Report Date of procedure: September 10, 2022 Pre-op diagnosis: PET positive lung nodules in right lower lobe and right middle lobe suspicious for malignancy Post-op diagnosis: Possible malignancy Procedure done: 43670 Bx Bronchoscope w/Brushings or protected brushings 52670 Dx Bronchoscope w/BAL 69611 Bronch with computer image guided Navigational Bronchoscopy 81496 Bronchoscopy w/Transbronchial lung biopsy(s), single lobe 40300 Bronchoscopy w/Transbronchial needle aspiration biopsy(s), tracheal, main stem, and/or lobar bronchus 60070 w/Transbronchial lung biopsy(s), each additional lobe (list separately, in addition to code for primary procedure) 32498 w/Transbronchial needle aspiration biopsy(s), each additional lobe (list separately, in addition to code for primary procedure) 49743 Bronchoscopy w/ therapeutic aspiration of the tracheobronchial tree (clearance of airway secretions, removal of mucus plugs) 47685 EBUS Sampling 1/2 nodes 22637 EBUS Diag or Interven Peripheral lesion (radial EBUS) Surgeon: Jomar Soriano MD [facility] Brief History: Love #82-year-old female with past medical history of 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 By clinical evaluation her disease appeared to be stage IIB (T3, N0, M0).s/p chemoradiation in 2018 and??laparoscopic sigmoid colectomy in December 2017-pathology showed moderately differentiated adenocarcinoma with no involvement in 3 regional lymph nodes. Most recent CT chest 08/22/2022 showed slight increase in right upper lobe no neoplasm measuring 16 x 15 mm.? There was medial right lower lobe pulmonary nodule measuring 13 x 13 (which was PET active SUV 7.8 in January 2022) and there is another right middle lobe 1.2 x 1.4 cm solid nodule(SUV 11.7 in January 2022).? There is right hilar adenopathy(SUV was 8.1 in January 2022 PET/CT) suspicious for metastatic disease.? Also noted bronchial wall thickening of right mainstem. The concern is if all these pulmonary lesions are related to recurrent cancer, new cancer, or metastatic from colon. COPD. Current smoker, 0.5-1 ppd. Currently using Wixela BID and duoneb 2 x day. Pt reports not using albuterol inhaler. Today she is scheduled for bronchoscopy guided biopsies of right middle lobe, right lower lobe, possible endobronchial biopsies of right mainstem bronchus, endobronchial ultrasound-guided biopsies of hilar/mediastinal lymph nodes. Procedure: 91563 Bx Bronchoscope w/Brushings or protected brushings 39752 Dx Bronchoscope w/BAL 95565 Bronch with computer image guided Navigational Bronchoscopy 38763 Bronchoscopy w/Transbronchial lung biopsy(s), single lobe 32481 Bronchoscopy w/Transbronchial needle aspiration biopsy(s), tracheal, main stem, and/or lobar bronchus 14278 w/Transbronchial lung biopsy(s), each additional lobe (list separately, in addition to code for primary procedure) 60668 w/Transbronchial needle aspiration biopsy(s), each additional lobe (list separately, in addition to code for primary procedure) 01386 Bronchoscopy w/ therapeutic aspiration of the tracheobronchial tree (clearance of airway secretions, removal of mucus plugs) 42651 EBUS Sampling 1/2 nodes 56953 EBUS Diag or Interven Peripheral lesion (radial EBUS) Indication: Description of the procedure: The procedure was explained to the patient and the consent was obtained. The patient was brought to the OR. Anesthesia: The patient underwent endotracheal intubation for general anesthesia. Local anesthesia: The Lorri, right and left mainstem bronchi were anesthetized with 1% lidocaine, 3 mL. Following induction of general anesthesia, the flexible bronchoscope used for initial inspection (02864) and airway clearance (60973). The scope was advanced through the ET tube. The lower trachea mucosa appeared normal, no endotracheal lesion was seen. The lorri was sharp. The lorri, the right and left mainstem bronchi are anesthetized with 1% lidocaine. In a systematic manner bilateral bronchial tree was then examined. The bronchoscope was advanced into the left mainstem bronchus. The mucosa appeared normal with no endobronchial lesions. The left upper lobe, lingula and left lower lobe bronchi were examined up to the third subsegmental level and no abnormalities were identified. Mucosa appeared normal with no endobronchial lesion, active bleeding or mucous plug. There were significant mucus secretions in lower lobe-which were suctioned right away. The bronchoscope was then introduced into the right mainstem bronchus. The right upper lobe anterior segment was narrowed, apical and posterior segments were completely occluded. Mucosa was very friable and started bleeding when the bronchoscope touched the muse. The scope was advanced through bronchus intermedius and visualized segments and subsegments of right middle lobe and right lower lobe bronchi were examined up to the third subsegmental level. Throughout both right middle lobe and right lower lobe mucosa appeared somewhat edematous and bumpy which made the airways narrow. There was no obvious endobronchial lesion. There were significant mucus secretions which were suctioned right away. After initial inspection as well as airway clearance with flexible bronchoscope(04728), ION robotic assisted navigational bronchoscope (19268) was introduced-and right lower lobe lesion was accessed. After confirming the location with radial EBUS (42669), under the fluoroscopy guidance -we were able to obtain biopsies using fine-needle, forceps, Cytobrush. Bronchoalveolar lavage (03153)?was performed after the bronchoscope was wedged into the posterior basal segment of right lower lobe, 10 mL of saline was instilled, fluid return was 7 mL.? The fluid was mixed with blood and specks of tissue. Then-again using ION robotic assisted navigational bronchoscope -and right middle lobe lesion (additional lobe) was accessed. After confirming the location with radial EBUS (87399), under the fluoroscopy guidance -we were able to obtain biopsies using brush, fine-needle, forceps (91519, 58050). Bronchoalveolar lavage (08198)?was performed after the bronchoscope was wedged into the right middle lobe, 10 mL of saline was instilled, fluid return was 6 mL.? The fluid was mixed with blood and specks of tissue. There was some evidence of grade 2 bleeding-cold saline was instilled and after making sure there is no active bleeding, ION robotic assisted navigational bronchoscope was retracted Endobronchial ultrasound (EBUS )was introduced and did surveillance of mediastinal and hilar lymph nodes. Identified station 7 lymph node.. EBUS guided fine-needle aspiration biopsies (83571) were performed from station 7. There was some evidence of bleeding-cold saline was instilled. After making sure there is no active bleeding EBUS was retracted and procedure terminated. Samples: A.Right lower lobe lesion 1. Total of 4 passes were made using needle aspiration(64161); 1 pass used for touch prep - reported seeing necrotic fragments with atypical lymphocytes; remaining 3 passes were placed in formalin for histopathology 2.Targeting the same area 4 passes were made using forceps (29084); 1 pass used for touch prep - reported positive for necrotic fragments, tumor present; remaining 3 passes were placed in formalin for histopathology 3. Targeting the same area 1 pass was made with Cytobrush (99050); the specimen was placed in formalin for histopathology 4. Bronchoalveolar lavage (03439)?was performed after the bronchoscope was wedged into the posterior basal segment of right lower lobe, 10 mL of saline was instilled, fluid return was 7 mL.? The fluid was mixed with blood and specks of tissue. The specimen was sent for cytology. 5. 1 pass from needle aspiration and 1 pass from forceps biopsy-were placed in RPMI and sent to pathology B.Right middle lobe lesion (additional lobe) 1. Total of 4 passes were made using needle aspiration(64466); 1 pass used for touch prep - reported seeing rare atypical cells; remaining 3 passes were placed in formalin for histopathology 2. Targeting the same area 4 passes were made using forceps (75818); 1 pass used for touch prep - reported seeing rare cells; remaining 3 passes were placed in formalin for histopathology 3. Targeting the same area 1 pass was made with Cytobrush (36258); the specimen was placed in formalin for histopathology 4. Bronchoalveolar lavage (81073)?was performed after the bronchoscope was wedged into the right middle lobe, 10 mL of saline was instilled, fluid return was 6 mL.? The fluid was mixed with blood and specks of tissue. The specimen was sent for cytology. A. EBUS guided FNA C of station 7 (15363) 1. Total of 3 passes were made using fine-needle aspiration(48177); 1 pass used for touch prep - reported negative for malignancy; remaining 2 passes were placed in formalin for histopathology Complications: None.The patient was extubated and brought to the PACU in stable condition. Postprocedure chest x-ray: No evidence of pneumothorax Disposition: Patient can be discharged home in stable condition. Pt, and her son are aware that I am going to call them to update final biopsy results once available. Related Problem List Diagnoses (1) Pulmonary nodules/lesions, multiple: (2) Malignant neoplasm of upper lobe, right bronchus or lung:
--- NOTE | 2022-09-10 12:48 | XR_ITS ---
WS: [id number] Portable AP upright chest, 09/10/2022 Clinical Data: post right lung nodules biopsies - rule out pneumothorax Comparison: Portable chest, 08/30/2021 Findings: No nodules, masses or effusions are seen. The heart is slightly enlarged. The pulmonary vas cularity is not increased. No pneumonia or pneumothorax is seen. The diaphragms are flattened. Monito r leads are on the chest wall. XR/XR chest 1V portable 27967 Impression: Negative for pneumothorax post bronchoscopy.
--- NOTE | 2022-09-10 14:25 | ANE.PACU2 ---
Inpatient post-anesthesia follow up: Airway intact: Yes Vital signs: Temperature 98.1 F Pulse Rate 81 Respiratory Rate 16 Blood Pressure 124/60 Pulse Oximetry 95 Oxygen Delivery Me thod Nasal Cannula Oxygen Flow Rate 2 Fraction of Inspir ed Oxygen Hydration adequate: Yes Nausea and vomiting: No Pain level: 2 Mental status: Baseline
[2022-09-10 16:11] LABS: Cyto Order Verification Order Verified
[2022-09-11 12:13] LABS: Lymphoma Profile (BBPL) See Report
== END 2022-09-10 14:30 | disposition home or self-care (01) ==
PROVIDERS: Visit Provider Internal Medicine Pulmonary Disease
PROC: 0BJ08ZZ Inspection of Tracheobronchial Tree, Via Natural or Artificial Opening Endoscopic (ICD-10-PCS; CPT 31622; principal; 2022-09-10 09:00)
PROC: BB4BZZZ Ultrasonography of Pleura (ICD-10-PCS; 2022-09-10 09:00)
DX: C34.11 Malignant neoplasm of upper lobe, right bronchus or lung (principal); C18.7 Malignant neoplasm of sigmoid colon; Z79.82 Long term (current) use of aspirin; Z99.81 Dependence on supplemental oxygen; J44.9 Chronic obstructive pulmonary disease, unspecified; M79.7 Fibromyalgia; K21.9 Gastro-esophageal reflux disease without esophagitis; E78.5 Hyperlipidemia, unspecified; I10 Essential (primary) hypertension; F17.210 Nicotine dependence, cigarettes, uncomplicated
CPT/HCPCS: 31623; 31624; 31627; 31628; 31629; 31632; 31633; 31645; 31652; 31654; 71045; 76000; 80503; 87070; 88112; 88184; 88185; 88305; 88342; J1100; J2370; J2405; J2704; J3010; J3490; J7030

== ENCOUNTER 2022-09-30 11:27 | Oncology outpatient (recurring) (ONCR) | payer MEDICARE, MEDICAID, SELFPAY ==
--- NOTE | 2022-09-11 10:40 | N.ONRAD NP_ITS ---
Radiation Oncology Consultation Patient Name: Giovanna Gottlieb Date of : 1940 Date of Service: 09/11/2022 Attending Physician: Robert Bowers M.D. Giovanna Gottlieb was seen in consultation this morning at the request of Giacomo Iqbal M.D. for consideration of palliative radiotherapy in the management of metastatic lung cancer. She was initially diagnosed in August of 2017 with a clinical stage IIB (T3N0) squamous cell carcinoma of the right upper-lobe of the lung. Weekly carboplatin was prescribed concomitantly with thoracic radiotherapy completing in October of 2017. Progressive disease was identified January 2022 following a restaging PET scan that identified hypermetabolic right lung nodules, right hilar and mediastinal lymphadenopathy, and osseous metastatic disease in the right sacrum. She was prescribed erlotinib in February of 2022. During a routine follow-up appointment with medical oncology, she described right hip and lower extremity pain. A thoracoabdominopelvic CT scan (independently reviewed in [facility]) ordered on August 22, 2022 described stable lung disease and an increased size of the lytic lesion within the right sacrum measuring 2.1 cm x 2.3 cm. She was referred for palliative radiotherapy. I discussed with Ms. Gottlieb the role for palliative radiation in the context of metastatic disease. I would recommend a 1-week course of radiation therapy. A CT scan will be acquired for radiotherapy planning prior to beginning treatment to delineate the clinical target volume. The potential toxicities of radiotherapy were reviewed. The patient has verbalized understanding would like to proceed as recommended. Her medical treatment plan has been discussed with Giacomo Iqbal M.D. Signed by: Robert Bowers 09/16/2022 2:26:11 PM
--- NOTE | 2022-09-17 | CT_ITS ---
Radiation Therapy Planning CT images; total exam DLP: 749.50 mGy-cm MTDD
--- NOTE | 2022-09-26 13:09 | ONCRAD TMN_ITS ---
Radiation Oncology Weekly Treatment Management Patient: Giovanna Gottlieb MR#: [id number] : 1940 Attending Physician: Leandro Spann DO Date of Service: 09/26/2022 Referring Physician(s) : Dr. 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 ID: Sacrum, Energy: 15X, Dose/Fx (cGy): 400, #Fx: 3 / 5, Dose Correction (cGy): 0, Total Dose (cGy): 1,200, Start Date: 09/23/2022, Elapsed Days: 3 Reason for visit: The patient is being seen today as part of their regularly scheduled weekly on treatment visits to assess for acute toxicities from radiotherapy. Review of Systems: Pain level today 02/20. Patient took 2 pain medications this morning. She complains of mild to moderate constipation. She indicates that she has MiraLAX if needed. Vital Signs: Performed on 09/26/2022 11:42 AM BMI - 23.737 kg/m2 (high), Height - 63 in, Weight - 134 lbs, Temperature - 97.7 f, Pulse - 83 /min, Respiration - 18 /min, O2 Sat - 97 %, Pain - 8, Fatigue - 5 and BP - 128/ 68 mm(hg). Physical Exam: Imaging: Radiation therapy imaging related to accurate target localization (i.e. KV, MV and CBCT) was reviewed. Appropriate changes, if any, were made to ensure treatment accuracy. Plan: Continue prescribed treatment. Patient cautioned to use extreme caution to avoid falls. She has the MiraLAX to use as needed for constipation. Signed by: Leandro Spann DO 09/26/2022 1:08:58 PM
--- NOTE | 2022-09-30 11:33 | N.ONRD TS_ITS ---
Radiation OncologyTreatment Summary Patient Name: Giovanna Gottlieb Date of : 1940 Date of Service: 09/30/2022 Attending Physician: Robert Bowers M.D. Giovanna Gottlieb has completed palliative radiotherapy for the management of metastatic lung cancer. She was initially diagnosed in August of 2017 with a clinical stage IIB (T3N0) squamous cell carcinoma of the right upper-lobe of the lung. Weekly carboplatin was prescribed concomitantly with thoracic radiotherapy completing in October of 2017. Progressive disease was identified January 2022 following a restaging PET scan that identified hypermetabolic right lung nodules, right hilar and mediastinal lymphadenopathy, and osseous metastatic disease in the right sacrum. She was prescribed erlotinib in February of 2022. During a routine follow-up appointment with medical oncology, she described right hip and lower extremity pain. A thoracoabdominopelvic CT scan ordered on August 22, 2022 described stable lung disease and an increased size of the lytic lesion within the right sacrum measuring 2.1 cm x 2.3 cm. Daily radiotherapy was administered between the dates of September 23, 2022 through September 30, 2022. A prescribed dose of 20 Gy was delivered in 5 fractions encompassing 8 elapsed days. The sacrum was treated utilizing a 3-dimensional conformal radiotherapy plan with AP/PA garner and a right lateral port. The AP field utilized a 0??? gantry angle with a collimator angle of 0???. The field size measured 7.5 cm x 7.5 cm within the X-direction and 4 cm x 4 cm within the Y-direction. The SSD measured 83.2 cm with the field delivering 204 monitor units. The PA port employed a gantry angle of 180??? and a collimator angle of 0???. The field size was 7.5 cm x 7.5 cm within X-direction and 4 cm x 4 cm within the Y-direction. The SSD was 93.2 cm with the field allocating 253 monitor units. All treatments were performed with the [employer] linear accelerator and an isocentric technique. The dose was calculated by Anisotropic Analytic Algorithm. A photon energy of 15 MV was prescribed with the plan normalized to deliver 100% of the prescription dose to 99% of the planning target volume. Signed by: Robert Bowers 09/30/2022 11:31:17 AM
== END 2022-10-11 23:59 | disposition home or self-care (01) ==
PROVIDERS: Visit Provider Radiology Radiation Oncology
DX: Z51.0 Encounter for antineoplastic radiation therapy (principal); C34.11 Malignant neoplasm of upper lobe, right bronchus or lung; C77.8 Secondary and unspecified malignant neoplasm of lymph nodes of multiple regions; C79.51 Secondary malignant neoplasm of bone; F17.210 Nicotine dependence, cigarettes, uncomplicated
CPT/HCPCS: 77290; 77295; 77300; 77334; 77336; 77412; 99024; 99205

== ENCOUNTER 2022-10-17 09:47 | Oncology outpatient (recurring) (ONCR) | payer MEDICARE, MEDICAID, SELFPAY ==
[2022-10-17 10:32] LABS: Basophils % 0.4 %; Eosinophils # 0.5 10^3/uL (0.0-0.8); Eosinophils % 7.3 %; Hematocrit 39.1 % (37.0-47.0); Lymphocytes # 1.3 10^3/uL (0.8-4.8); Lymphocytes % 18.7 %; Mean Corpuscular HGB Conc 30.7 g/dL (30.0-36.0); Mean Corpuscular Hemoglobin 26.3 pg (28.0-34.0); Mean Corpuscular Volume 85.6 fl (81-99); Mean Platelet Volume 8.7 fL (7.4-10.4); Monocytes # 0.6 10^3/uL (0.2-0.9); Monocytes % 8.6 %; Neutrophils # 4.35 10^3/uL (1.8-7.7); Neutrophils % 64.7 %; Nucleated Red Blood Cells % 0 %; Platelet Count 245 10^3/cmm (130-400); Red Blood Count 4.57 10^6/uL (4.1-5.3); Red Cell Distribution Width 14.4 % (12.1-15.1); White Blood Count 6.7 10^3/uL (4.0-10.0)
[2022-10-17 10:59] LABS: Alanine Aminotransferase 6 U/L (0-33); Albumin Level 3.4 g/dL (3.5-5.2); Alkaline Phosphatase 82 U/L (35-105); Anion Gap 10.8 (5-19); Aspartate Amino Transferase 11 U/L (0-32); Blood Urea Nitrogen 7 mg/dL (8-23); Calcium 9.2 mg/dL (8.5-10.5); Carbon Dioxide 30 mmol/L (22-29); Chloride 103 mmol/L (98-107); Globulin 3.5 g/dL (1.3-4.6); Glucose 118 mg/dL (65-115); Osmolality Calculated 289 mOsm/kg (285-295); Potassium 3.8 mmol/L (3.5-5.1); Sodium 140 mmol/L (136-145); Thyroid Stimulating Hormone 0.65 uIU/mL (0.27-4.20); Total Bilirubin 0.2 mg/dL (0.15-1.2); Total Protein 6.9 g/dL (6.6-8.7)
== END 2022-11-10 23:59 | disposition home or self-care (01) ==
PROVIDERS: Visit Provider Internal Medicine Medical Oncology
DX: C78.01 Secondary malignant neoplasm of right lung; C77.8 Secondary and unspecified malignant neoplasm of lymph nodes of multiple regions; C79.51 Secondary malignant neoplasm of bone; F17.210 Nicotine dependence, cigarettes, uncomplicated; Z79.899 Other long term (current) drug therapy; M25.551 Pain in right hip; M79.604 Pain in right leg; C18.7 Malignant neoplasm of sigmoid colon; R06.02 Shortness of breath; R53.82 Chronic fatigue, unspecified
CPT/HCPCS: 36415; 80053; 84443; 85025; 99215